=== PATIENT | female | born 1955 | race Two or more races ===

== ENCOUNTER → 2016-12-21 | Outpatient (CLI) | payer BC, OTHER ==
[~2016-12-21] MED LIST: IMIP50TA3 PO; TYLE325T5 PO
[2016-12-21 18:52] LABS: VITAMIN B12 LEVEL 884 PG/ML (247-911)
[2016-12-21 18:53] LABS: FOLATE > 24.0 NG/ML (>5.4)
[2016-12-21 20:02] LABS: FERRITIN 11 NG/ML (8-252); PERCENT SATURATION 17.3 % (13.2-45.0); TOTAL IRON BINDING CAPACITY 417 UG/DL (250-450)
[2016-12-23 11:05] LABS: HEPATITIS B SURFACE ANTIBODY NEGATIVE (POSITIVE)
[2016-12-23 11:30] LABS: HEP C VIRUS AB SCREEN MEDICARE 0.1 INDEX (<0.8)
== END ==
LOC: M LAB 15:19
PROVIDERS: ATTEND Internal Medicine Gastroenterology
DX: R14.0 Abdominal distension (gaseous) (principal)
CPT/HCPCS: 82607; 82728; 82746; 83550; 84207; 84425; 86256; 86705; 86706; 86708; G0472

== ENCOUNTER → 2016-12-26 | Outpatient (REF) | payer BC | LOC: M LAB REF 15:47 | PROVIDERS: ATTEND Internal Medicine Gastroenterology | DX: R14.0 Abdominal distension (gaseous) (principal) ==

== ENCOUNTER 2017-04-18 07:27 | Day surgery (SDC) | payer BC ==
[2017-04-18] MEDS ORDERED: NS 1,000 ML IV (08:15)
[2017-04-18] MEDS ORDERED: LIDOCAINE 2% INJ 100 MG/5 ML SDV (FOR ANES.) As Ordered (08:46)
[2017-04-18] MEDS ORDERED: PROPOFOL 200 MG/20 ML VIAL As Ordered (08:46)
== END 2017-04-18 10:35 | disposition home or self-care (01) ==
LOC: M OPP 07:27
DX: R93.3 Abnormal findings on diagnostic imaging of other parts of digestive tract (principal); R10.13 Epigastric pain; E78.5 Hyperlipidemia, unspecified; R12 Heartburn; D50.9 Iron deficiency anemia, unspecified; F50.00 Anorexia nervosa, unspecified; K21.9 Gastro-esophageal reflux disease without esophagitis; M19.90 Unspecified osteoarthritis, unspecified site; F41.9 Anxiety disorder, unspecified; F32.9 Major depressive disorder, single episode, unspecified; Z78.0 Asymptomatic menopausal state; Z80.3 Family history of malignant neoplasm of breast; Z88.0 Allergy status to penicillin; Z88.3 Allergy status to other anti-infective agents; Z88.2 Allergy status to sulfonamides; Z79.899 Other long term (current) drug therapy
CPT/HCPCS: 43235

== ENCOUNTER → 2018-04-20 | Outpatient (CLI) | payer MEDICARE, OTHER ==
[~2018-04-20] MED LIST changes: +ATOR1TAB19; +IRON65TA PO; +MIRA33504 PO; +PANT40TA3 PO; +VITA-122 PO; +WOMETAB2 PO
--- NOTE | 2018-04-20 13:34 | REP ---
AP, LATERAL RIGHT HIP, TWO VIEWS: HISTORY: Hip pain. COMPARISON: 06/14/2006 There is no acute fracture or dislocation. There is minimal narrowing of the joint space. Calcifications are present lateral to the joint space. This represents ligamentous or tendon calcification. There is an old fracture of the right pubic bone. IMPRESSION:Degenerative change as described above. Electronically Signed by Rudy Le MD 04/20/2018 01:42 P
== END ==
LOC: M RAD 11:37
PROVIDERS: ATTEND Physician Assistant
DX: M16.11 Unilateral primary osteoarthritis, right hip (principal); M25.551 Pain in right hip

== ENCOUNTER 2018-05-19 19:46 | Emergency (ER) | payer MEDICARE, OTHER ==
[~2018-05-19] VITALS: Ht 157.5 cm; Wt 40.0 kg
[2018-05-19] MEDS ORDERED: NS 1,000 ML IV ONE (21:00)
[2018-05-19 21:27] LABS: BASO # 0.1 10^3/uL (0.0-0.2); BASO % 1.3 % (0.0-1.0); EOS # 0.2 10^3/uL (0.0-0.50); EOS % 4.1 % (0.0-3.0); HEMATOCRIT 38.4 % (36.0-47.0); HEMOGLOBIN 12.3 g/dl (12.0-15.5); LYMPH # 1.1 10^3/uL (1.5-4.5); LYMPH % 28.9 % (24.0-44.0); MEAN CORPUSCULAR HEMOGLOBIN 29.5 pg (27.0-33.0); MEAN CORPUSCULAR VOLUME 92.1 fl (80.0-96.0); MONO # 0.4 10^3/uL (0.0-0.8); MONO % 11.3 % (0.0-5.0); NEUTROPHILS # 2.1 10^3/uL (1.8-7.7); NEUTROPHILS % 54.1 % (36.0-66.0); PLATELET COUNT, AUTOMATED 303 10^3/uL (150-450); RED BLOOD COUNT 4.17 10^6/uL (4.00-5.40); WHITE BLOOD COUNT 3.9 10^3/uL (4.0-10.0)
[2018-05-19 22:00] LABS: ALBUMIN 4.2 GM/DL (3.2-5.2); BILIRUBIN,DIRECT 0.1 MG/DL (0.0-0.2); BILIRUBIN,TOTAL 0.3 MG/DL (0.2-1.0); CALCIUM LEVEL 9.1 MG/DL (8.8-10.2); CREATININE FOR GFR 1.22 MG/DL (0.55-1.30); GLOMERULAR FILTRATION RATE 47.1 (>45); POTASSIUM SERUM 3.6 MEQ/L (3.5-5.1); TOTAL PROTEIN 7.6 GM/DL (6.4-8.2)
[2018-05-19] MEDS: GASTROGRAFIN SOLUTION 30ML PO SCH ×2 (22:18→22:35)
[2018-05-19] MEDS ORDERED: ISOVUE-370 76% 100ML VIAL (Q9967) As Ordered ONE (22:54)
--- NOTE | 2018-05-20 00:37 | REPVR ---
EXAM: CT Abdomen and Pelvis With Contrast EXAM DATE/TIME: 05/19/2018 11:20 PM CLINICAL HISTORY: 63 years old, female; Pain; Abdominal pain; Generalized; Additional info: Abdominal pain and bloating, eval for colitis TECHNIQUE: Axial computed tomography images of the abdomen and pelvis with intravenous contrast. All CT scans at this facility use at least one of these dose optimization techniques: automated exposure control; mA and/or kV adjustment per patient size (includes targeted exams where dose is matched to clinical indication); or iterative reconstruction. Coronal and sagittal reformatted images were created and reviewed. CONTRAST: Contrast Material: 84 ml of ISOVUE 370; Contrast Route: IV COMPARISON: None FINDINGS: LUNG BASES: No infiltrate or effusion. VASCULAR: No abdominal aortic aneurysm, dissection, or retroperitoneal hematoma. There is mild atherosclerosis. PERITONEAL : No free air. Trace amount of free fluid noted within the pelvis. GI: No hiatal hernia. The stomach is not sufficiently distended for complete diagnostic evaluation by this exam. If there are gastric symptoms, consider dedicated evaluation. No asymmetric small bowel dilation to suggest obstruction. Secondary to paucity of mesenteric fat, mild mesenteric inflammation throughout cannot be excluded. Gastroenteritis may be a possibility, to be correlated clinically. Portions of the colon in mid rectum are distended with fecal material and gas, to 9.4 cm in diameter at the transverse colon. This could be secondary to constipation and/or ileus. Followup with barium enema or colonoscopy is advised to exclude any possibility of an obstructive lesion. No evidence of acute diverticulitis. No obvious colonic wall thickening seen. No pericolonic inflammatory stranding. The appendix is not identified. HEPATOBILIARY, PANCREAS, SPLEEN: Sagittal hepatic length is 13.2 cm. There is severe heterogeneous hypoenhancement of the liver. This could be artifactual secondary to the arterial phase of imaging, however correlation with LFTs is advised. If there is clinical abnormality, consider nonemergent MRI for further assessment. No calcified gallstones or biliary dilation. No pancreatic inflammation. Spleen not enlarged. Slight heterogeneity of the spleen, likely secondary to the phase of imaging. ADRENALS, KIDNEYS, BLADDER, RETROPERITONEAL: Adrenals within normal limits. No hydronephrosis. Symmetric renal enhancement. 7 mm left renal hypodensity may represent a cyst. Nonobstructing 3 mm left renal calculi. Mildly distended urinary bladder. No bladder wall thickening. PELVIC: No dominant cystic pelvic mass seen. Retroverted uterus. MUSCULOSKELETAL: The bones appear slightly demineralized. Degenerative changes of the spine and within the pelvis are seen. Slight bony deformity of the right pelvis likely related to old fracture. No acute fracture seen. IMPRESSION: Colonic distention may be secondary to constipation and/or ileus. Gastrointestinal findings and recommendations discussed above. Trace amount of free fluid. Severe heterogeneity of hepatic parenchyma. Recommendations discussed above. Other incidental findings discussed above. Electronically signed by: Mitchell Kim On 05/20/2018 00:37:18 AM
[2018-05-20] MEDS ORDERED: MAGNESIUM CITRATE 300 ML BTL PO ONE (00:45)
[2018-05-20 01:00] VITALS: BP 136/84
--- NOTE | 2018-05-20 11:37 | ED PDOC ---
Post-Departure Follow-Up zach lucero faxed formal report of ct abd/p for fu Gigi Plasencia MD May 20, 2018 11:37
== END 2018-05-20 01:02 | disposition home or self-care (01) ==
LOC: M ED 19:46
DX: K59.00 Constipation, unspecified (principal); Z79.899 Other long term (current) drug therapy; Z82.49 Family history of ischemic heart disease and other diseases of the circulatory system; Z82.3 Family history of stroke; Z88.0 Allergy status to penicillin; Z88.2 Allergy status to sulfonamides; Z88.1 Allergy status to other antibiotic agents; Z88.8 Allergy status to other drugs, medicaments and biological substances
CPT/HCPCS: 36415; 74177; 80048; 80076; 81001; 83605; 83690; 85025; 87086; 99284; Q9963; Q9967

== ENCOUNTER 2019-03-06 11:18 | Emergency (ER) | payer MEDICARE ==
[~2019-03-06] VITALS: Ht 157.5 cm; Wt 39.0 kg
--- NOTE | 2019-03-06 12:13 | REP ---
Clinical: Trauma. Fall. Comparison: 01/26/2016 . Findings: Age-related atrophy with periventricular leukomalacia and microvascular ischemic changes are appreciated. The ventricles and sulci are symmetric. Whiteside-white differentiation is maintained. There is no evidence for acute intracranial hemorrhage, mass/mass effect, pathology or infarction. No extra-axial fluid collection. Calvarium is intact. 1.6 cm mucocele noted in the right maxillary sinus. Impression: Age related atrophy and microvascular ischemic changes. No acute intracranial hemorrhage, infarction, or mass/mass effect. Electronically Signed by Dung Hernandez MD 03/06/2019 12:05 P
--- NOTE | 2019-03-06 12:20 | REP ---
Clinical: Trauma. Fall. Technique: Axial noncontrast images from the skull base to the thoracic inlet with coronal and sagittal re-formations. Comparison: 10/03/2013. Findings: Moderate age-related multilevel degenerative disc osteophyte complexes are appreciated. Alignment and lordosis maintained. No acute fracture / compression injury or subluxation. Spinal canal is patent. Posterior elements and spinous processes are intact. Paravertebral soft tissues are within normal limits. Impression: Moderate multilevel degenerative spondylosis. No acute fracture / compression injury or subluxation. Electronically Signed by Dung Hernandez MD 03/06/2019 12:11 P
--- NOTE | 2019-03-06 12:25 | REP ---
Clinical: Trauma. Pain. Technique: AP, lateral, bilateral oblique and coned-down views of the lumbosacral spine. Findings: Age-related osteopenia and mild/moderate multilevel degenerative changes noted. No acute fracture / compression injury or subluxation. Impression: Age-related changes. No acute fracture / compression injury or subluxation. Electronically Signed by Dung Hernandez MD 03/06/2019 12:17 P
--- NOTE | 2019-03-06 12:26 | REP ---
Clinical: Pain. Trauma. Technique: AP and lateral views of the sacrum and coccyx (three views). Findings: Age-related osteopenia and degenerative changes are appreciated and limit evaluation. No obvious acute displaced fracture identified. Impression: No obvious displaced fracture appreciated. Electronically Signed by Dung Hernandez MD 03/06/2019 12:18 P
[2019-03-06 12:56] VITALS: BP 126/59
== END 2019-03-06 12:58 | disposition home or self-care (01) ==
LOC: M ED 11:18
DX: S30.0XXA Contusion of lower back and pelvis, initial encounter (principal); W00.0XXA Fall on same level due to ice and snow, initial encounter; Y92.018 Other place in single-family (private) house as the place of occurrence of the external cause; I67.82 Cerebral ischemia; M25.78 Osteophyte, vertebrae; M47.812 Spondylosis without myelopathy or radiculopathy, cervical region; Z88.2 Allergy status to sulfonamides; Z88.0 Allergy status to penicillin; Z88.1 Allergy status to other antibiotic agents; Z79.899 Other long term (current) drug therapy

== ENCOUNTER 2019-03-13 14:36 | Emergency (ER) | payer MEDICARE ==
[~2019-03-13] VITALS: Ht 157.5 cm; Wt 38.6 kg
[2019-03-13] MEDS ORDERED: NORC1TAB7 PO ×2 (14:42→16:21)
--- NOTE | 2019-03-13 16:21 | REP ---
Clinical: Trauma. Fall. Technique: Axial noncontrast images through the pelvis with coronal and sagittal re-formations. Findings: Sagittal re-formations best demonstrate a subtle acute nondisplaced fracture at the S2-3 level. The foramen appear patent. The surrounding soft tissues are grossly unremarkable. Impression: Subtle nondisplaced fracture at the S2-3 level. Electronically Signed by Dung Hernandez MD 03/13/2019 04:12 P
[2019-03-13 16:28] VITALS: BP 128/59
== END 2019-03-13 16:33 | disposition home or self-care (01) ==
LOC: M ED 14:36
DX: Z76.0 Encounter for issue of repeat prescription (principal); S32.110A Nondisplaced Zone I fracture of sacrum, initial encounter for closed fracture; W01.0XXA Fall on same level from slipping, tripping and stumbling without subsequent striking against object, initial encounter; Y92.9 Unspecified place or not applicable; Z88.2 Allergy status to sulfonamides; Z88.0 Allergy status to penicillin; Z88.1 Allergy status to other antibiotic agents; Z79.02 Long term (current) use of antithrombotics/antiplatelets; Z79.899 Other long term (current) drug therapy

== ENCOUNTER → 2019-04-01 | Outpatient (CLI) | payer MEDICARE ==
[~2019-04-01] MED LIST changes: +NORC1TAB7 PO
== END ==
LOC: M LAB 12:30
PROVIDERS: ATTEND Physician Assistant
DX: R74.0 Nonspecific elevation of levels of transaminase and lactic acid dehydrogenase [LDH] (principal)

== ENCOUNTER → 2020-02-21 | Outpatient (CLI) | payer MEDICARE, MEDICAID ==
[~2020-02-21] MED LIST changes: +E-Z-GAS II EFFERVESCENT PACKET (SODIUM BICARB./CITRIC ACID/SIMETHICONE) As Ordered ONE; +E-Z-HD 98% w/w 340GM SUSP BTL As Ordered ONE; +E-Z-PAQUE 96% w/w SUSP 176GM BTL As Ordered ONE; +PANT40TA29; +PANT40TA29 PO; -PANT40TA3 PO
--- NOTE | 2020-02-21 11:30 | REP ---
INDICATION: DYSPHAGIA. COMPARISON: None TECHNIQUE: This procedure was performed by Angelia Red [facility], under the direct supervision of Dr. Jaime. Images were reviewed with Dr. Jaime prior to dictation. Liquid barium was given in erect position. FINDINGS: A single view PA chest x-ray is submitted as a accounts receivable accountant film. The lungs are hyperinflated, this is consistent with COPD. The oral and pharyngeal stages of deglutition demonstrated laryngeal penetration that progressed into aspiration. Aspirated barium was visualized extending all the way to the maira.. Esophageal transport is prompt and efficient and there is no evidence of esophagitis, stricture, or mucosal ring. There is no evidence of a hiatal hernia. There was no gastroesophageal reflux noted . IMPRESSION: 1.Tracheal aspiration noted to the level of the maira. 2. Hyperinflation of the lungs, consistent with COPD. 0.2 minutes of fluoroscopy time was utilized for this procedure. Some fluoroscopic images are performed with last image hold technology. These images require no additional radiation. <Electronically signed by Angelia Red > 02/21/20 1052 <Electronically signed by Ramin Jaime > 02/21/20 1125
== END ==
LOC: M RAD 08:11
PROVIDERS: ATTEND Nurse Practitioner
DX: R13.10 Dysphagia, unspecified (principal)

== ENCOUNTER → 2020-02-22 | Outpatient (CLI) | payer MEDICARE ==
[~2020-02-22] MED LIST changes: -E-Z-GAS II EFFERVESCENT PACKET (SODIUM BICARB./CITRIC ACID/SIMETHICONE) As Ordered ONE; -E-Z-HD 98% w/w 340GM SUSP BTL As Ordered ONE; -E-Z-PAQUE 96% w/w SUSP 176GM BTL As Ordered ONE
== END ==
LOC: M LABSMTC 11:28
PROVIDERS: ATTEND Anesthesiology
DX: Z01.818 Encounter for other preprocedural examination (principal); Z20.828 Contact with and (suspected) exposure to other viral communicable diseases

== ENCOUNTER 2020-02-27 08:07 | Day surgery (SDC) | payer MEDICARE, MEDICAID ==
[~2020-02-27] VITALS: Ht 157.5 cm; Wt 35.4 kg
[~2020-02-27 08:07] MED LIST changes: +NS 1,000 ML IV ONE
[2020-02-27] MEDS ORDERED: fentaNYL 100 MCG/2 ML INJECTION (J3010) As Ordered ONE (09:11)
[2020-02-27] MEDS ORDERED: LIDOCAINE 2% 100MG/5ML SDV (FOR ANES.) As Ordered ONE (09:11)
[2020-02-27] MEDS ORDERED: propofoL 500 MG/50 ML VIAL As Ordered ONE (09:11)
--- NOTE | 2020-02-27 09:18 | ROOR ---
Patient Name: Cleo Coe Procedure Date: 02/27/2020 9:00 AM Date of : 1955 Age: 64 Room: [facility] Gender: Female Note Status: Finalized Procedure: Upper GI endoscopy Indications: Dysphagia Providers: Hong Lovelace Jr, MD Referring MD: FAITH MINAYA Requesting Provider: Medicines: Propofol per Anesthesia Complications: No immediate complications. Procedure: Pre-Anesthesia Assessment: - Prior to the procedure, a History and Physical was performed, and patient medications and allergies were reviewed. The patient is competent. The risks and benefits of the procedure and the sedation options and risks were discussed with the patient. All questions were answered and informed consent was obtained. Patient identification and proposed procedure were verified by the physician and the nurse in the pre-procedure area and in the procedure room. Mental Status Examination: alert and oriented. Airway Examination: normal oropharyngeal airway and neck mobility. Respiratory Examination: clear to auscultation. CV Examination: normal. ASA Grade Assessment: II - A patient with mild systemic disease. After reviewing the risks and benefits, the patient was deemed in satisfactory condition to undergo the procedure. The anesthesia plan was to use moderate sedation / analgesia (conscious sedation). Immediately prior to administration of medications, the patient was re-assessed for adequacy to receive sedatives. The heart rate, respiratory rate, oxygen saturations, blood pressure, adequacy of pulmonary ventilation, and response to care were monitored throughout the procedure. The physical status of the patient was re-assessed after the procedure. The Endoscope was introduced through the mouth, and advanced to the second part of duodenum. The upper GI endoscopy was accomplished without difficulty. The patient tolerated the procedure well. Findings: The upper third of the esophagus, middle third of the esophagus and lower third of the esophagus were normal. The cardia, gastric fundus, gastric body and pylorus were normal. Localized mild inflammation characterized by congestion (edema), erythema and friability was found in the gastric antrum. Biopsies were taken with a cold forceps for histology. The duodenal bulb, first portion of the duodenum and second portion of the duodenum were normal. Impression: - Normal upper third of esophagus, middle third of esophagus and lower third of esophagus. - Normal cardia, gastric fundus, gastric body and pylorus. - Gastritis. Biopsied. - Normal duodenal bulb, first portion of the duodenum and second portion of the duodenum. Recommendation: - Discharge patient to home (ambulatory). - Return to my office in 2 weeks. Procedure Code(s): --- Professional --- 30626, Esophagogastroduodenoscopy, flexible, transoral; with biopsy, single or multiple Diagnosis Code(s): --- Professional --- K29.70, Gastritis, unspecified, without bleeding R13.10, Dysphagia, unspecified CPT copyright 2019 [employer] [place] [employer]. All rights reserved. The codes documented in this report are preliminary and upon insole presser review may be revised to meet current compliance requirements. Hong Lovelace MD Hong Lovelace Jr, MD 02/27/2020 9:18:31 AM Electronically signed by Hong Lovelace Jr, MD Number of Addenda: 0 Note Initiated On: 02/27/2020 9:00 AM Estimated Blood Loss: Estimated blood loss: none.
[2020-02-27 09:40] VITALS: BP 131/60
== END 2020-02-27 09:47 | disposition home or self-care (01) ==
LOC: M OPP 08:07
PROVIDERS: ATTEND Surgery
DX: R13.10 Dysphagia, unspecified (principal); K29.70 Gastritis, unspecified, without bleeding
CPT/HCPCS: 43239; 88305; J3010

== ENCOUNTER → 2020-03-31 | Outpatient (CLI) | payer MEDICARE, MEDICAID ==
[~2020-03-31] MED LIST changes: -NS 1,000 ML IV ONE
--- NOTE | 2020-03-31 17:02 | REP ---
INDICATION: R13.12 DYSPHAGIA. COMPARISON: None. TECHNIQUE: The procedure was performed by Angelia Red [facility], under the direct supervision of Dr. Whiteside. The procedure was performed with Maddie Krueger from speech pathology present. 5 ml aliquots of thin, pudding, and nectar, consistency barium was administered. FINDINGS: No aspiration or penetration was visualized during the exam. The detailed report of this examination will be provided by speech pathology. IMPRESSION: Unremarkable cookie swallow, a detailed report will be provided by speech pathology. 2.8 minutes of fluoroscopy time was utilized for this procedure. Some fluoroscopic images are performed with last image hold technology. These images require no additional radiation <Electronically signed by Angelia Red > 03/31/20 1534 <Electronically signed by Speedy Whiteside > 03/31/20 [id number]
== END ==
LOC: M ST 11:40
PROVIDERS: ATTEND Otolaryngology
DX: R13.12 Dysphagia, oropharyngeal phase (principal)

== ENCOUNTER 2020-05-08 10:15 | Outpatient (RCR) | payer MEDICARE, MEDICAID | END 2020-05-10 | LOC: M PT 10:15 | PROVIDERS: ATTEND Otolaryngology | DX: R53.1 Weakness (principal); R29.6 Repeated falls; R13.12 Dysphagia, oropharyngeal phase ==

== ENCOUNTER 2020-06-02 10:15 | Outpatient (RCR) | payer MEDICARE, MEDICAID | END 2020-06-10 | LOC: M ST 10:15 | PROVIDERS: ATTEND Otolaryngology | DX: R53.1 Weakness (principal); R29.6 Repeated falls; R13.12 Dysphagia, oropharyngeal phase ==

== ENCOUNTER 2020-06-26 10:58 | Outpatient (RCR) | payer MEDICARE, MEDICAID | END 2020-07-10 | LOC: M ST 10:58 | PROVIDERS: ATTEND Otolaryngology | DX: R13.12 Dysphagia, oropharyngeal phase (principal); R53.1 Weakness; R29.6 Repeated falls ==

== ENCOUNTER 2020-08-06 11:00 | Outpatient (RCR) | payer MEDICARE, MEDICAID | END 2020-08-10 | LOC: M ST 11:00 | PROVIDERS: ATTEND Otolaryngology | DX: R13.12 Dysphagia, oropharyngeal phase (principal); R53.1 Weakness; R29.6 Repeated falls ==

== ENCOUNTER 2020-09-25 10:11 | Emergency (ER) | payer MEDICARE, MEDICAID ==
[~2020-09-25] VITALS: Ht 157.5 cm; Wt 32.3 kg
--- NOTE | 2020-09-25 12:13 | REP ---
INDICATION: trauma. COMPARISON: None. TECHNIQUE: Three views of the right shoulder are provided. FINDINGS: The right glenohumeral and acromioclavicular joints are normally aligned. There is diffuse osteopenia and chondrocalcinosis is noted incidentally as a degenerative phenomena. No fracture or subluxation is seen. The visualized right hemithorax is unremarkable. IMPRESSION: Diffuse osteopenia. Chondrocalcinosis. No traumatic abnormality noted <Electronically signed by Ramin Jaiem > 09/25/20 [id number]
--- NOTE | 2020-09-25 12:43 | REPVR ---
PROCEDURE INFORMATION: Exam: CT Head Without Contrast Exam date and time: 09/25/2020 11:57 AM Age: 65 years old Clinical indication: Injury or trauma; Fall; Blunt trauma (contusions or hematomas); Additional info: Trauma, right parietal pain/trauma TECHNIQUE: Imaging protocol: Computed tomography of the head without contrast. Radiation optimization: All CT scans at this facility use at least one of these dose optimization techniques: automated exposure control; mA and/or kV adjustment per patient size (includes targeted exams where dose is matched to clinical indication); or iterative reconstruction. COMPARISON: CT Head without contrast 03/06/2019 11:54 AM FINDINGS: Brain: The brain demonstrates diffuse volume loss. There is white matter hypodensity most consistent with chronic small vessel ischemic change. No visible evolving territorial infarct. No hemorrhage. Cerebral ventricles: The ventricles are enlarged in keeping with volume loss. Paranasal sinuses: Visualized sinuses are unremarkable. No fluid levels. Mastoid air cells: Visualized mastoid air cells are well aerated. Bones/joints: Unremarkable. No acute fracture. Soft tissues: Unremarkable. IMPRESSION: No acute intracranial abnormality seen. Electronically signed by: Alejandrina Avila On 09/25/2020 12:42:39 PM
[2020-09-25 13:22] VITALS: BP 112/61
== END 2020-09-25 13:22 | disposition home or self-care (01) ==
LOC: M ED 10:11
DX: S09.90XA Unspecified injury of head, initial encounter (principal); S43.401A Unspecified sprain of right shoulder joint, initial encounter; W01.10XA Fall on same level from slipping, tripping and stumbling with subsequent striking against unspecified object, initial encounter; Y92.019 Unspecified place in single-family (private) house as the place of occurrence of the external cause; Y93.9 Activity, unspecified; Y99.8 Other external cause status; M85.811 Other specified disorders of bone density and structure, right shoulder; M11.211 Other chondrocalcinosis, right shoulder; Z88.0 Allergy status to penicillin; Z88.1 Allergy status to other antibiotic agents; Z88.2 Allergy status to sulfonamides; Z79.899 Other long term (current) drug therapy

== ENCOUNTER 2020-11-17 10:45 | Emergency (ER) | payer MEDICARE, MEDICAID ==
[~2020-11-17] VITALS: Ht 157.5 cm; Wt 31.4 kg
--- NOTE | 2020-11-17 11:19 | REP ---
INDICATION: FALL. COMPARISON: Comparison head CT study September 25, 2020. TECHNIQUE: Helical scanning is acquired. 5 mm axial images were reformatted. Coronal MPR images were generated. FINDINGS: Preliminary digital screen printing cloth spreader radiograph demonstrates soft tissue swelling in the left parietal region. Bone window settings confirm the presence of a small scalp hematoma in the left parietal region. No skull fracture is seen. There are some mild mucosal thickening changes in the ethmoid air cells bilaterally. Visualized paranasal sinuses are otherwise clear. On brain soft tissue window settings, there is generalized volume loss. Small vessel atherosclerotic changes are noted. There is no evidence of intracranial hemorrhage. Physiologic calcification is noted in the basal ganglia. There is no evidence of infarct, extra-axial fluid collection, mass, or midline shift. No significant change from the study done September 25, 2020. IMPRESSION: Generalized volume loss and small vessel changes. No intracranial injury. Left parietal scalp swelling. No skull fracture. <Electronically signed by Ramin Jaime > 11/17/20 [id number]
--- NOTE | 2020-11-17 11:23 | REP ---
INDICATION: FALL. COMPARISON: 03/06/2019. TECHNIQUE: CT cervical spine performed in the axial plane, with sagittal and coronal reconstruction images performed. FINDINGS: There is no evidence of acute fracture or dislocation. There is again slight retrolisthesis of C5 on C6 unchanged. There is mild anterior and posterior osteophytic ridging at C 4-5, C5-6 and C6-7 with mild disc space narrowing and subchondral sclerosis at these levels. There is a small stable Schmorl's node at the superior endplate of C7. No abnormal density is seen in the spinal canal. Uncovertebral and facet spurring appears to cause mild to moderate foraminal narrowing on the right at C4-5, moderate narrowing bilaterally at C5-6 and C6-7. IMPRESSION: No evidence of acute fracture or dislocation.Degenerative changes as above. <Electronically signed by Speedy Whiteside > 11/17/20 [id number]
[2020-11-17 11:43] LABS: BASO % 0.4 % (0.0-1.0); EOS # 0.1 10^3/uL (0.0-0.5); EOS % 0.7 % (0.0-3.0); HEMATOCRIT 41.9 % (36.0-47.0); HEMOGLOBIN 13.4 g/dl (12.0-15.5); LYMPH # 0.8 10^3/uL (1.5-5.0); LYMPH % 9.6 % (24.0-44.0); MEAN CORPUSCULAR HEMOGLOBIN 29.8 pg (27.0-33.0); MEAN CORPUSCULAR VOLUME 93.1 fl (80.0-96.0); MONO # 0.6 10^3/uL (0.0-0.8); NEUTROPHILS # 6.5 10^3/uL (1.5-8.5); NEUTROPHILS % 81.7 % (36.0-66.0); PLATELET COUNT, AUTOMATED 310 10^3/uL (150-450)
[2020-11-17 12:26] LABS: ALBUMIN 3.7 GM/DL (3.2-5.2); ALT/SGPT 149 U/L (12-78); BILIRUBIN,TOTAL 0.3 MG/DL (0.2-1.0); BLOOD UREA NITROGEN 15 MG/DL (7-18); CALCIUM LEVEL 9.4 MG/DL (8.8-10.2); CARBON DIOXIDE LEVEL 36 MEQ/L (21-32); CHLORIDE LEVEL 103 MEQ/L (98-107); CREATININE FOR GFR 0.72 MG/DL (0.55-1.30); GLOMERULAR FILTRATION RATE > 60.0 (>45); GLUCOSE, FASTING 102 MG/DL (70-100); POTASSIUM SERUM 4.2 MEQ/L (3.5-5.1); SODIUM LEVEL 141 MEQ/L (136-145); TOTAL PROTEIN 6.8 GM/DL (6.4-8.2)
[2020-11-17 13:10] VITALS: BP 133/79
--- NOTE | 2020-11-17 17:57 | ECGEPIP ---
[facility] [place] - ED Test Date: 2020-11-17 Pat Name: REGINALDO HERNANDEZ Department: Room: - Gender: Female Construction Services Technician: MARKUS : 1955 Requested By: XENIA Vaughn Order Number: [id number] Reading MD: Ashleigh Woods Measurements Intervals [place] Rate: 81 P: 86 [place]: 156 QRS: 4 QRSD: 88 T: 87 QT: 382 QTc: 443 Interpretive Statements Normal sinus rhythm Possible Anterolateral infarct , age undetermined NSTTW abnormalities similar 08/25/14 Electronically Signed on 11-17-2020 17:57:03 EDT by Ashleigh Woods
[2020-11-18] MEDS ORDERED: MECL1TAB31 PO (20:47)
== END 2020-11-17 13:15 | disposition home or self-care (01) ==
LOC: M ED 10:45 → EDBD 10:45 → M ED 13:15
DX: S09.90XA Unspecified injury of head, initial encounter (principal); W01.0XXA Fall on same level from slipping, tripping and stumbling without subsequent striking against object, initial encounter; R26.81 Unsteadiness on feet; R53.1 Weakness; R94.5 Abnormal results of liver function studies; Z88.1 Allergy status to other antibiotic agents; Z88.2 Allergy status to sulfonamides; Z88.8 Allergy status to other drugs, medicaments and biological substances

== ENCOUNTER 2020-11-18 13:53 | Emergency (ER) | payer MEDICARE, MEDICAID ==
[~2020-11-18] VITALS: Ht 157.5 cm; Wt 31.4 kg
[2020-11-18 13:54] VITALS: BP 136/81
[2020-11-18] MEDS ORDERED: MECL1TAB31 PO (20:47)
== END 2020-11-18 21:13 | disposition left against medical advice (07) ==
LOC: M ED 13:53
DX: R42 Dizziness and giddiness (principal); R63.0 Anorexia; Z53.9 Procedure and treatment not carried out, unspecified reason

== ENCOUNTER 2021-01-07 10:26 | Inpatient (IN) | payer MEDICARE, MEDICAID ==
[~2021-01-07] VITALS: Ht 157.5 cm; Wt 28.8 kg
[~2021-01-07 10:26] MED LIST changes: +MECL1TAB31 PO
[2021-01-07] MEDS ORDERED: ENSULIQ51 (10:42)
[2021-01-07] MEDS ORDERED: ATOR1TAB21 PO (10:42)
--- OUTSIDE RECORDS SUMMARY | 2021-01-07 11:22 | CCD | Continuity of Care Document ---
Author Author Cleo MELENDEZ 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 Adrianne Melendez RPA Onset: 09/09/2009 Insomnia Jeffrey Melendez RPA Onset: 03/18/2013 Generalized anxiety disorder Jeffrey Melendez RPA Onset: 0 11/14/2013 Moderate recurrent major depression Jeffrey Melendez RPA O nset: 03/31/2015 Constipation Jeffrey Melendez RPA Onset: 12/12/2019 Articulatory defect Jeffrey Melendez RPA Onset: 11/10/2020 Oropharyngeal dysphagia Jeffrey Melendez RPA Onset: 2020 Social History Type Date Description Comments Sex Unknown Tobacco Use Start: Unknown Never Smoked Cigarettes ETOH Use Occasionally consumes beer Recreational Drug Use Never Used Drugs Tobacco Use Start: Unknown Patient has never smoked Allergies, Adverse Reactions, Alerts Active Allergies Criticality Reaction | Severity Comments Date Bactrim DS Unable to assess criticality gi upset 06/13/2008 Cipro Unable to assess criticality 06/05/2019 Macrobid Unable to assess criticality Dizziness 05/04/2020 Medications Active Medications SIG Qnty Indications Ordering Provide r Date Atorvastatin Calcium 20mg Tablets 1 by mouth every day 30tabs Luke Pacheco D.O., FAAFP Guaifenesin 200mg Tablets 1 po bid 60tabs Luke Pacheco D.O., FAAFP 04/30/2020 Famotidine 40mg Tablets Take One Tablet By Mouth Every Night AT Bedtime 30tabs Roderick Luna, [facility] 01/28/2020 Ensure Active High Protein Liquid 1 can by mouth every day dx: f50 auth. # [id number] 30units Luke Pacheco D.O., FAAFP 01/28/2020 Linzess 145mcg Capsules Take One Capsule By Mouth Every Day 30caps Luke Pacheco D.O., [facility] 12/12/2019 Imipramine HCL 50mg Tablets Take Two Tablets By Mouth AT Bedtime , Maximum Daily Dose = 2 Tablets 60tabs Luke Pacheco D.O., [facility] 08/07/2018 Pantoprazole Sodium 40mg Tablets D R 1 by mouth every day Unknown History Medications Ensure High Protein Liquid Drink One Can By Mouth Every Day 7110units Luke Pacheco D.O., [facility] 06/17/2020 - 10/23/2020 Immunizations Description No Information Available Vital Signs Date Vital Result Comment 11/10/2020 10:32am BP Systolic 116 mmHg BP Diastolic 80 mmHg Body Temperature 97.2 F Heart Rate 78 /min Respiratory Rate 16 /min Height 62 inches 5'2" Weight 68.00 lb [place] Body Weight 110 lb BMI (Body Mass Index) 12.4 kg/m2 10/13/2020 9:50am BP Systolic 114 mmHg BP Diastolic 78 mmHg Body Temperature 97.0 F Heart Rate 88 /min Respiratory Rate 16 /min Height 62 inches 5'2" Weight 69.00 lb [place] Body Weight 110 lb BMI (Body Mass Index) 12.6 kg/m2 O2 % BldC Oximetry 86 % Results Test Acquired Date Facility Test Result H/L Range Note CMP 11/10/2020 [facility]house Glu 108 mg/dL 70 - 110 BUN 18 mg/dL 8 - 23 Creat 0.8 mg/dL 0.5 - 1.0 BUN/Creatinine Ratio 22.2 CALC Na 140 mmol/L 136 - 145 K 3.6 mmol/L 3.5 - 5.1 CL 97.5 mmol/L Low 98.0 - 107.0 Co2 27.7 mmol/L 22.0 - 29.0 CA 10.3 mg/dL High 8.6 - 10.2 TP 7.3 g/dL 6.6 - 8.7 Alb 4.7 g/dL 3.4 - 4.8 A/G Ratio 1.7 CALC Globulin 2.7 CALC Alp 101.8 U/L 35 - 129 Alt (SGPT) 40 U/L 0 - 41 Ast (Sgot) 66 U/L High 0 - 40 Tbili 0.36 mg/dL 0.0 - 1.2 Osmolality-Calculated 281.5 CALC Anion Gap 18 mmol/L eGFR 88 # Calc 1 eGFR Non-Afr. Burkinan 76 # Calc 2 CBC 08/27/2020 [facility]/Inhouse WBC 4.7 10E3/uL 4.1 - 10.9 3 RBC 4.08 10E6/uL Low 4.20 - 6.30 HGB 12.1 g/dL 12.0 - 18.0 HCT 37.9 % 37.0 - 51.0 MCV 92.9 fL 80.0 - 97.0 MCH 29.7 pg 26.0 - 32.0 MCHC 31.9 g/dL 31.0 - 36.0 PLT 377 10E3/uL 140 - 440 RDW-CV 12.6 % 11.5 - 14.5 Lym% 19.9 % 10.0 - 58.5 Neut% 69.4 % 37.0 - 92.0 MXD% 10.7 % 0.1 - 24.0 Lym# 0.9 10E3/uL 0.6 - 4.1 Neut# 3.3 % 2.0 - 7.8 MXD# 0.5 10E3/uL 0.0 - 1.8 MPV 9.4 fL 9.0 - 13.0 CMP 08/27/2020 [facility]Inhouse Glu 111 mg/dL High 70 - 110 BUN 18 mg/dL 8 - 23 Creat 0.9 mg/dL 0.5 - 1.0 BUN/Creatinine Ratio 20.9 CALC Na 137 mmol/L 136 - 145 K 4.4 mmol/L 3.5 - 5.1 CL 98.0 mmol/L 98.0 - 107.0 Co2 25.9 mmol/L 22.0 - 29.0 CA 9.9 mg/dL 8.6 - 10.2 TP 6.9 g/dL 6.6 - 8.7 Alb 4.4 g/dL 3.4 - 4.8 A/G Ratio 1.8 CALC Globulin 2.4 CALC Alp 139.6 U/L High 35 - 129 Alt (SGPT) 29 U/L 0 - 41 Ast (Sgot) 50 U/L High 0 - 40 Tbili 0.13 mg/dL 0.0 - 1.2 Osmolality-Calculated 276.4 CALC Anion Gap 18 mmol/L eGFR 77 # Calc 4 eGFR Non-Afr. Burkinan 66 # Calc 5 Lipid Panel 08/27/2020 [facility]Inhouse Chol 303 mg/dL High 0 - 200 Trig 50 mg/dL 40 - 200 HDL 106 mg/dL High 45 - 65 LDL_C 187 Calc High 75 - 129 Cho/HDL Ratio 2.9 CALC Laboratory test finding 08/27/2020 [facility]Inhouse TSH 1.796 ulU/mL 0.60 - 4.8 Urine Culture, Routine 05/14/2020 [facility] [place] Urine Culture, Routine Final report 6, 7 Result 1 See Comment: 8 U/A DIP FPA 05/14/2020 [facility] As[facility] ciates Color Urine YELLOW Yellow Appearance CLEAR Clear Specific Bard 1.030 1.00-1.03 PH Urine 6.0 5.0-8.0 Glucose Urine NEG Negative Bilirubin Urine 1+ High Negative Ketones NEG Negative Blood Urine NEG Negative Protein Urine TRACE Negative Urobilinogen .2 EU/dl 0.2-1.0 Nitrite NEG Negative Leukocytes TRACE Negative 1 CKD-EPI 2 CKD-EPI 3 NORMAL RANGES Age WBC RBC HGB HCT MCV PLT Adult M 4.1-10.9 4.20-6.30 12.0-18.0 37.0-51.0 80-97 140-440 Adult F 4.1-10.9 4.04-5.48 12.0-18.0 37.0-51.0 80-97 140-440 0 -1 Yr 5.0-20.0 3.9-5.9 15-18 MV: 44 MV: 91 MV: 277 2-9 Yr. 6.0-17.0 3.8-5.4 11-13 MV: 37 MV: 78 MV: 300 10 Yrs. 5.0-13.0 3.8-5.4 12-15 MV: 39 MV: 80 MV: 250 NOTE: * FOR ADULT BLACK MALES AND FEMALES, NORMAL WBC IS 2.9-7.7 K/ML * FOR ADULT BLACK MALES AND FEMALES, NORMAL RBC,HGB, AND HCT IS 5% LESS SOURCE FOR DATA: [employer] 1800 OPERATION MANUAL( AUTOMATED BLOOD COUNTS AND DIFF.) APPENDIX B-3 CHRONIC KIDNEY DISEASE STAGING PER NKF: MALE GFR INTERPRETATION: 20-49 YRS: >60 mL/min Normal 50-59 YRS: >56 mL/min Normal 60-69 YRS: >49 mL/min Normal 70-79 YRS: >42 mL/min Normal 80 and above >35 mL/min Normal FEMALE GRF INTERPRETATION: 20-39 YRS: >60 mL/min Normal 40-49 YRS: >58 mL/min Normal 50-59 YRS: >51 mL/min Normal 60-69 YRS: >45 mL/min Normal 70-79 YRS: >39 mL/min Normal 80 and above >32 mL/min NormalCLASSIFICATION CHOLESTEROL FOR ADULTS CHILDREN/ADOLESCENTS* DESIRABLE: <200 MG/DL <170 MG/DL BORDER-LINE HIGH RISK: 200-239 MG/DL 170-199 MG/DL HIGH RISK: >240 MG/DL >200 MG/DL CLASS. FOR PRIMARY LDL CHOL PREVENTION: LDL CHOL-CHILD/ADOLESCENTS* DESIRABLE: <130 MG/DL <110 MG/DL BORDERLINE-HIGH RISK: 130-159 MG/DL 110-129 MG/DL HIGH RISK: >160 MG/DL >130 MG/DL *CHILDREN AND ADOLESCENTS REPRESENTS INDIVIDUALA AGED 2-19 YEARS EXCLUSIVE. 4 CKD-EPI 5 CKD-EPI 6 SRC:URINE 7 Source of Specimen: URINE 8 Source of Specimen: URINE Culture shows less than 10,000 colony forming units of bacteria per milliliter of urine. This colony count is not generally considered to be clinically significant. Procedures Date Code Description Status 11/10/2020 31891 Office/Outpatient Established Mo d MDM 30-39 Min Completed 10/13/2020 06540 Office/Outpatient Established Mo d MDM 30-39 Min Completed 08/27/2020 13318 Office/Outpatient Established Mo d MDM 30-39 Min Completed 05/14/2020 31453 Office/Outpatient Established Lo w MDM 20-29 Min Completed Medical Devices Description No Information Available Encounters Type Date Location Provider Dx Diagnosis Office Visit 11/10/2020 9:45a [facility] Jeffrey Melendez, RP A F50.00 Anorexia nervosa, unspecified R47.89 Other speech disturbances R13.12 Dysphagia, oropharyngeal pha se R60.0 Localized edema Office Visit 10/13/2020 9:30a [facility] Jeffrey Melendez, RP A F50.00 Anorexia nervosa, unspecified R13.12 Dysphagia, oropharyngeal pha se R47.89 Other speech disturbances Office Visit 08/27/2020 10:20a [facility] Jeffrey Melendez, RP A E78.5 Hyperlipidemia, unspecified D52.0 Dietary folate deficiency an emia R13.12 Dysphagia, oropharyngeal pha se F50.00 Anorexia nervosa, unspecifie d Office Visit 05/14/2020 11:30a [facility] Jeffrey Melendez, RP A R35.0 Frequency of micturition N39.0 Urinary tract infection, sit e not specified Assessments Date Code Description Provider 11/10/2020 F50.00 Anorexia nervosa, unspecified Hi Jeffrey dc, RPA 11/10/2020 R47.89 Other speech disturbances Jeffrey Melendez, RPA 11/10/2020 R13.12 Dysphagia, oropharyngeal phase H Jeffrey brock, RPA 11/10/2020 R60.0 Ankle edema Jeffrey Melendez, RPA 10/13/2020 F50.00 Anorexia nervosa, unspecified Hi Jeffrey dc, RPA 10/13/2020 R13.12 Dysphagia, oropharyngeal phase H Jeffrey brock, RPA 10/13/2020 R47.89 Other speech disturbances Jeffrey Melendez, RPA 08/27/2020 E78.5 Hyperlipidemia, unspecified Jeffrey Rosas, RPA 08/27/2020 D52.0 Dietary folate deficiency anemia Jeffrey Melendez, RPA 08/27/2020 R13.12 Dysphagia, oropharyngeal phase H Jeffrey brock, RPA 08/27/2020 F50.00 Anorexia nervosa, unspecified Hi Jeffrey dc, RPA 05/14/2020 R35.0 Frequency of micturition Jeffrey Melendez, RPA 05/14/2020 N39.0 Urinary tract infection, site no t specified Jeffrey Melendez, [facility] Plan of Treatment No Information Available Functional Status Description No Information Available Mental Status Description No Information Available Referrals Refer to Reason for Referral Status Appt Date Anorexia with progressive we akness, muscle loss, dysphagia, and dysphasia. She now weighs 68#. Sent
--- OUTSIDE RECORDS SUMMARY | 2021-01-07 11:22 | CCD | Continuity of Care Document ---
Author Author YuniorCleo cordero [employer] ed Organization Unknown Address Unknown Phone Unavailable Care Team Providers Care Inspector Balance Wheel Motion Name Role Phone Tera Ingram Unavailable Unavailable Unavailable Tera Ingram Unavailable Unavailable Unavailable AnumDaysi zaragoza Unavailable Rianna Brooks Unavailable Bettye Cardenas Unavailable Problems Name Dates Details Anorexia nervosa, u nspecified (F50.00) 08-Dec-2020 Status: Active Medications Name Dates Details Linzess 145 MCG Tera Ingram MD Active Imipramine HCl 50 MG Tera Ingram MD* Start : 14-Dec-2020 Active Famotidine 40 MG Tera Ingram MD* Start : 14-Dec-2020 Active Ensure Active High Protein Tera Ingram MD* Start : 14-Dec-2020 Active Atorvastatin Calcium 20 MG Tera Ingram MD* Start : 14-Dec-2020 Active Allergies and Adverse Reactions Name Dates Details Bactrim DS, Cipro, Macrobid (Allergy) O nset: 14-Dec-2020 Status: Active Results Date Description Value Details No Known Results Plan of Care Name Dates Details Instructions Diet:high protein, ensure kody es; client has 40 year history of anorexia. Ins truction Type: Nutrition education Payers * Medicare - [place] * [facility] [place]
--- OUTSIDE RECORDS SUMMARY | 2021-01-07 11:22 | CCD | Continuity of Care Document ---
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) 14-Dec-2020 Status: Active Hyperlipidemia, uns pecified (E78.5) 14-Dec-2020 Status: Active Vitamin D deficienc y, unspecified (E55.9) 14-Dec-2020 Status: Active 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) 14-Dec-2020 Status: Active Anxiety disorder, u nspecified (F41.9) 14-Dec-2020 Status: Active Depression, unspeci fied (F32.A) 14-Dec-2020 Status: Active Anemia, unspecified (D64.9) 14-Dec-2020 Status: Active Dysphagia, unspecif ied (R13.10) 14-Dec-2020 Status: Active Repeated falls (R29.6) 14-Dec-2020 Status: Active Medications Name Dates Details Linzess 145 MCG Tera Ingram MD Active Imipramine HCl 50 MG Tera Ingram MD* Start : 14-Dec-2020 Active Famotidine 40 MG Tera Ingram MD* Start : 14-Dec-2020 Active Ensure Active High Protein Tera Ingram MD* Start : 04-Oct-2021 Active Atorvastatin Calcium 20 MG Tera Ingram [...] Type: Nutrition education Payers * Medicare - [facility] * [facility]
--- OUTSIDE RECORDS SUMMARY | 2021-01-07 11:22 | CCD | Continuity of Care Document ---
Author Author YuniorCleo cordero [employer] Organization Unknown Address Unknown Phone Unavailable Care Team Providers Care Rehabilitation Clerk Name Role Phone Tera Ingram Unavailable Unavailable [...] education Payers * Medicare - [place] * [facility]
--- OUTSIDE RECORDS SUMMARY | 2021-01-07 11:22 | CCD | Continuity of Care Document ---
Author Author Zay Cleo [employer] Organization Unknown Address Unknown Phone Unavailable Care Team Providers Care Vending Machine Coin Collector Name Role Phone Juan Jose Tera Unavailable Unavailable Unavailable Tera Ingram Unavailable Unavailable [...] Ingram MD Active Imipramine HCl 50 MG Nenita Ingram MD Start : 14-Dec-2020 Active Famotidine 40 MG Tera Ingram MD* Start : 14-Dec-2020 Active Ensure Active High Protein Tera Ingram MD* Start : 14-Dec-2020 Active Atorvastatin Calcium 20 MG Nenita Ingram MD Start : 14-Dec-2020 Active Allergies and Adverse Reactions Name Dates Details Bactrim DS, Cipro, Macrobid (Allergy) O nset: 14-Dec-2020 Status: Active Results Date Description Value Details No Known Results Plan of Care Name Dates Details Instructions Diet:high protein, ensure kody es; client has 40 year history of anorexia. Ins truction Type: Nutrition education Payers * Medicare - [facility] * [facility]
--- OUTSIDE RECORDS SUMMARY | 2021-01-07 11:22 | CCD | Continuity of Care Document ---
Author Author Cleo MELENDEZ [facility] Organization Unknown Address [address] [place] [id number] Phone [phone] Problems Active Problems Provider Date Anorexia nervosa [...] Every Night AT Bedtime 30tabs Roderick Luna, [facility] 01/28/2020 Ensure Active High Protein Liquid 1 can by mouth every day dx: f50 auth. # [id number] 30units Luke Pacheco D.O., [facility] 01/28/2020 Linzess 145mcg Capsules Take One Capsule By Mouth Every Day 30caps Luke Pacheco D.O., [facility] 12/12/2019 Imipramine HCL 50mg Tablets Take Two Tablets By Mouth AT Bedtime , Maximum Daily Dose = 2 Tablets 60tabs Luke Pacheco D.O., [facility] 08/07/2018 Pantoprazole Sodium 40mg Tablets D R 1 by mouth every day Unknown History Medications Ensure High Protein Liquid Drink One Can By Mouth Every Day 7110units Luke Pacheco D.O., [facility] 06/17/2020 - 10/23/2020 Immunizations Description No Information Available Vital Signs Date Vital Result Comment 12/01/2020 1:14pm BP Systolic 118 mmHg BP Diastolic 70 mmHg Body Temperature 97.3 F Heart Rate 109 /min Respiratory Rate 16 /min Height 62 inches 5'2" Weight 66.00 lb [place] Body Weight 110 lb BMI (Body Mass Index) 12.1 kg/m2 11/10/2020 10:32am BP Systolic 116 mmHg BP Diastolic 80 mmHg Body Temperature 97.2 F Heart Rate 78 /min Respiratory Rate 16 /min Height 62 inches 5'2" Weight 68.00 lb [place] Body Weight 110 lb BMI (Body Mass Index) 12.4 kg/m2 Results Test Acquired Date Facility Test Result H/L Range Note Hepatic Function Panel (7) 12/01/2020 [facility] [place] Protein, Total 6.9 g/dL 6.0-8.5 Albumin 4.4 g/dL 3.8-4.8 Bilirubin, Total 0.3 mg/dL 0.0-1.2 Bilirubin, Direct 0.11 mg/dL 0.00-0.40 Alkaline Phosphatase 135 IU/L High 44-121 1 Ast (Sgot) 79 IU/L High 0-40 Alt (SGPT) 75 IU/L High 0-32 Laboratory test finding 12/01/2020 [facility] [place] GGT 28 IU/L 0-60 Antinuclear Antibodies, Ifa Negative 2 Mitochondrial (M2) Antibody <20.0 units 0.0-20.0 3 Ceruloplasmin 27.6 mg/dL 19.0-39.0 Ferritin 114 ng/mL 15-150 Hepatitis Panel, Acute 12/01/2020 [facility] [place] Hep A Ab, IgM Negative Negative HBsAg Screen Negative Negative Hep B Core Ab, IgM Negative Negative Hep C Virus Ab <0.1 s/coratio 0.0-0.9 4 CMP 11/10/2020 [facility]/Inhouse Glu 108 mg/dL 70 [...] Gap 18 mmol/L eGFR 88 # Calc 5 eGFR Non-Afr. English 76 # Calc 6 CBC 08/27/2020 [facility]/Inhouse WBC 4.7 10E3/uL 4.1 - 10.9 7 RBC 4.08 10E6/uL Low 4.20 - 6.30 [...] Gap 18 mmol/L eGFR 77 # Calc 8 eGFR Non-Afr. English 66 # Calc 9 Lipid Panel 08/27/2020 [facility]Inhouse Chol 303 mg/dL High 0 - 200 Trig 50 mg/dL 40 - 200 HDL 106 mg/dL High 45 - 65 LDL_C 187 Calc High 75 - 129 Cho/HDL Ratio 2.9 CALC Laboratory test finding 08/27/2020 [facility]house TSH 1.796 ulU/mL 0.60 - 4.8 1 Please note reference inte rval change 2 Negative <1:80 Borderline 1:80 Positive >1:80 ICAP nomenclature: AC-0 For more information about Hep-2 cell patterns use ANApatterns.org, the official website for the International Consensus on Antinuclear Antibody (CARRIE) Patterns (ICAP). 3 Negative 0.0 - 20.0 Equivocal 20.1 - 24.9 Positive >24.9 Mitochondrial (M2) Antibodies are found in 90-96% of patients with primary biliary cirrhosis. 4 Negative: < 0.8 Indeterminate: 0.8 - 0.9 Positive: > 0.9 The CDC recommends that a positive HCV antibody result be followed up with a HCV Nucleic Acid Amplification test (765237). 5 CKD-EPI 6 CKD-EPI 7 NORMAL RANGES Age WBC RBC HGB HCT [...] HCT IS 5% LESS SOURCE FOR DATA: [employer] 1800 OPERATION MANUAL( AUTOMATED BLOOD COUNTS AND [...] ADOLESCENTS REPRESENTS INDIVIDUALA AGED 2-19 YEARS EXCLUSIVE. 8 CKD-EPI 9 CKD-EPI Procedures Date Code Description Status 12/01/2020 97499 Office/Outpatient Established Mo d MDM 30-39 Min Completed 11/10/2020 28584 Office/Outpatient Established Mo d MDM 30-39 Min Completed 10/13/2020 42404 Office/Outpatient Established Mo d MDM 30-39 Min Completed 08/27/2020 09404 Office/Outpatient Established Mo d MDM 30-39 Min Completed Medical Devices Description No Information Available Encounters Type Date Location Provider Dx Diagnosis Office Visit 12/01/2020 1:00p [place] [facility] Jeffrey Melendez, RP A R74.01 Elevation of levels of liver transaminase levels F50.00 Anorexia nervosa, unspecifie d R47.89 Other speech disturbances Office Visit 11/10/2020 9:45a [place] [facility] Jeffrey Melendez, RP A F50.00 Anorexia nervosa, unspecified R47.89 Other speech disturbances R13.12 Dysphagia, oropharyngeal pha se R60.0 Localized edema Office Visit 10/13/2020 9:30a [place] [facility] Jeffrey Melendez, RP A F50.00 Anorexia nervosa, unspecified R13.12 Dysphagia, oropharyngeal pha se R47.89 Other speech disturbances Office Visit 08/27/2020 10:20a [place] [facility] Jeffrey Melendez, RP A E78.5 Hyperlipidemia, unspecified D52.0 Dietary folate deficiency an emia R13.12 Dysphagia, oropharyngeal pha se F50.00 Anorexia nervosa, unspecifie d Assessments Date Code Description Provider 12/01/2020 R74.01 Elevation of levels of liver tra nsaminase levels Jeffrey Melendez, RPA 12/01/2020 F50.00 Anorexia nervosa, unspecified Hi Jeffrey dc, RPA 12/01/2020 R47.89 Other speech disturbances Jeffrey Melendez, RPA 11/10/2020 F50.00 Anorexia nervosa, unspecified Hi Jeffrey dc, RPA 11/10/2020 R47.89 Other speech disturbances Jeffrey Melendez, RPA 11/10/2020 R13.12 Dysphagia, oropharyngeal phase H Jeffrey brock, RPA 11/10/2020 R60.0 Ankle edema Jeffrey Melendez, RPA 10/13/2020 F50.00 Anorexia nervosa, unspecified Hi Jeffrey dc, RPA 10/13/2020 R13.12 Dysphagia, oropharyngeal phase H Jeffrey brock, RPA 10/13/2020 R47.89 Other speech disturbances Jeffrey Melendez, RPA 08/27/2020 E78.5 Hyperlipidemia, unspecified Raudelnm Jeffrey damian, RPA 08/27/2020 D52.0 Dietary folate deficiency anemia Jeffrey Melendez, RPA 08/27/2020 R13.12 Dysphagia, oropharyngeal phase H Jeffrey brock, RPA 08/27/2020 F50.00 Anorexia nervosa, unspecified Hi Jeffrey dc, [facility] Plan of Treatment No Information Available Functional Status Description No Information Available Mental Status Description No Information Available Referrals Refer to Reason for Referral [facility]66# with secondary dysarthria, dysphagia, weakness. [phone] Created Anorexia with progressive we akness, muscle loss, dysphagia, and dysphasia. She now weighs 68#. Sent
--- OUTSIDE RECORDS SUMMARY | 2021-01-07 11:22 | CCD | Continuity of Care Document ---
Author Author YuniorCleo cordero [employer] ed Organization Unknown Address Unknown Phone Unavailable Care Team Providers Care Prevention Coordinator Name Role Phone Tera Ingram Unavailable Unavailable Unavailable Tera Ingram Unavailable Unavailable Unavailable AnumDaysi zaragoza Unavailable Rianna Brooks Unavailable Bettye Cardenas Unavailable Problems Name Dates Details Anorexia nervosa, u nspecified (F50.00) 08-Dec-2020 Status: Active Medications Name Dates Details Linzess 145 MCG Tera Ingarm MD Active Imipramine HCl 50 MG Tera [...] Payers * Medicare - [place] * [facility]
--- OUTSIDE RECORDS SUMMARY | 2021-01-07 11:22 | CCD | Continuity of Care Document ---
Author Author Cleo MELENDEZ [facility] Organization Unknown Address [address] [place] [address] Phone [phone] Problems Active Problems Provider Date Anorexia nervosa [...] Every Night AT Bedtime 30tabs Roderick Luna, [facility] 01/28/2020 Ensure Active High Protein Liquid 1 can by mouth every day dx: f50 auth. # [id number] 30units Luke Pacheco D.O., [facility] 01/28/2020 Linzess 145mcg Capsules Take One Capsule By Mouth Every Day 30caps Luke Pacheco D.O., [facility] 12/12/2019 Imipramine HCL 50mg Tablets Take Two Tablets By Mouth AT Bedtime , Maximum Daily Dose = 2 Tablets 60tabs Luke Pacheco D.O., [facility] 08/07/2018 Pantoprazole Sodium 40mg Tablets D R 1 by mouth every day Unknown History Medications Ensure High Protein Liquid Drink One Can By Mouth Every Day 7110units Luke Pacheco D.O., [facility] 06/17/2020 - 10/23/2020 Immunizations Description No Information Available Vital Signs Date Vital Result Comment 12/01/2020 1:14pm BP Systolic 118 mmHg BP Diastolic 70 mmHg Body Temperature 97.3 F Heart Rate 109 /min Respiratory Rate 16 /min Height 62 inches 5'2" Weight 66.00 lb [place] Body Weight 110 lb BMI (Body Mass Index) 12.1 kg/m2 11/10/2020 10:32am BP Systolic 116 mmHg BP Diastolic 80 mmHg Body Temperature 97.2 F Heart Rate 78 /min Respiratory Rate 16 /min Height 62 inches 5'2" Weight 68.00 lb [place] Body Weight 110 lb BMI (Body Mass [...] eGFR 88 # Calc 5 eGFR Non-Afr. Cook Islander 76 # Calc 6 CBC 08/27/2020 FPA/Inhouse [...] eGFR 77 # Calc 8 eGFR Non-Afr. [place] Islander 66 # Calc 9 Lipid Panel 08/27/2020 [...] with a HCV Nucleic Acid Amplification test ([id number]). 5 CKD-EPI 6 CKD-EPI 7 NORMAL RANGES [...] HCT IS 5% LESS SOURCE FOR DATA: [employer] DYN 1800 OPERATION MANUAL( AUTOMATED BLOOD COUNTS [...] CKD-EPI Procedures Date Code Description Status 12/01/2020 78993 Office/Outpatient Established Mo d MDM 30-39 Min Completed 11/10/2020 19565 Office/Outpatient Established Mo d MDM 30-39 Min Completed 10/13/2020 36145 Office/Outpatient Established Mo d MDM 30-39 Min Completed 08/27/2020 17854 Office/Outpatient Established Mo d MDM 30-39 Min Completed Medical Devices Description No Information Available Encounters Type Date Location Provider Dx Diagnosis Office Visit 12/01/2020 1:00p [place] [facility] Jeffrey Melendez, RP A R74.01 Elevation of levels of liver transaminase levels F50.00 Anorexia nervosa, unspecifie d R47.89 Other speech disturbances Office Visit 11/10/2020 9:45a [place] [facility] Jeffrey Melendez, RP A F50.00 Anorexia nervosa, unspecified R47.89 Other speech disturbances R13.12 Dysphagia, oropharyngeal pha se R60.0 Localized edema Office Visit 10/13/2020 9:30a [place] [facility] Jeffrey Melendez, RP A F50.00 Anorexia nervosa, unspecified R13.12 Dysphagia, oropharyngeal pha se R47.89 Other speech disturbances Office Visit 08/27/2020 10:20a [place] [facility] Jeffrey Melendez, RP A E78.5 Hyperlipidemia, [...] nervosa, unspecified Hi Jeffrey dc, [facility] Plan of Treatment No Information Available Functional Status Description No Information Available Mental Status Description No Information Available Referrals Refer to Reason for Referral Status Appt [facility]--66# with secondary dysarthria, dysphagia, weakness. [phone] Created Anorexia with progressive we akness, muscle loss, dysphagia, and dysphasia. She now weighs 68#. Sent
--- OUTSIDE RECORDS SUMMARY | 2021-01-07 11:22 | CCD | Continuity of Care Document ---
Author Author Cleo MELENDEZ [facility] Organization Unknown Address [address] [place] [address] Phone [phone] Problems Active Problems Provider Date Anorexia nervosa [...] Every Night AT Bedtime 30tabs Roderick Luna, [facility] 01/28/2020 Ensure Active High Protein Liquid 1 can by mouth every day dx: f50 auth. # [id number] 30units Luke Pacheco D.O., [facility]FP 01/28/2020 Linzess 145mcg Capsules Take One Capsule By Mouth Every Day 30caps Luke Pacheco D.O., [facility] 12/12/2019 Imipramine HCL 50mg Tablets Take Two Tablets By Mouth AT Bedtime , Maximum Daily Dose = 2 Tablets 60tabs Luke Pacheco D.O., [facility] 08/07/2018 Pantoprazole Sodium 40mg Tablets D R 1 by mouth every day Unknown History Medications Ensure High Protein Liquid Drink One Can By Mouth Every Day 7110units Luke Pacheco D.O., [facility] 06/17/2020 - 10/23/2020 Immunizations Description No Information Available Vital Signs Date Vital Result Comment 12/01/2020 1:14pm BP Systolic 118 mmHg BP Diastolic 70 mmHg Body Temperature 97.3 F Heart Rate 109 /min Respiratory Rate 16 /min Height 62 inches 5'2" Weight 66.00 lb [place] Body Weight 110 lb BMI (Body Mass Index) 12.1 kg/m2 11/10/2020 10:32am BP Systolic 116 mmHg BP Diastolic 80 mmHg Body Temperature 97.2 F Heart Rate 78 /min Respiratory Rate 16 /min Height 62 inches 5'2" Weight 68.00 lb [place] Body Weight 110 lb BMI (Body Mass [...] eGFR 88 # Calc 1 eGFR Non-Afr. Albanian 76 # Calc 2 CBC 08/27/2020 FPA/Inhouse [...] eGFR 77 # Calc 4 eGFR Non-Afr. Albanian 66 # Calc 5 Lipid Panel 08/27/2020 FPA/Inhouse Chol 303 mg/dL High 0 - 200 Trig 50 mg/dL 40 - 200 HDL 106 mg/dL High 45 - 65 LDL_C 187 Calc High 75 - 129 Cho/HDL Ratio 2.9 CALC Laboratory test finding 08/27/2020 FPA/Inhouse TSH 1.796 ulU/mL 0.60 - 4.8 1 CKD-EPI 2 CKD-EPI 3 NORMAL RANGES [...] HCT IS 5% LESS SOURCE FOR DATA: [employer] DYN 1800 OPERATION MANUAL( AUTOMATED BLOOD COUNTS [...] 2-19 YEARS EXCLUSIVE. 4 CKD-EPI 5 CKD-EPI Procedures Date Code Description Status 11/10/2020 47450 Office/Outpatient Established Mo d MDM 30-39 Min Completed 10/13/2020 63008 Office/Outpatient Established Mo d MDM 30-39 Min Completed 08/27/2020 50058 Office/Outpatient Established Mo d MDM 30-39 Min Completed Medical Devices Description No Information Available Encounters Type Date Location Provider Dx Diagnosis Office Visit 11/10/2020 9:45a [place] [facility] Jeffrey Melendez, JUAN ANTONIO A F50.00 Anorexia nervosa, unspecified R47.89 Other speech disturbances R13.12 Dysphagia, oropharyngeal pha se R60.0 Localized edema Office Visit 10/13/2020 9:30a [place] [facility] Jeffrey Melendez, RP A F50.00 Anorexia nervosa, unspecified R13.12 Dysphagia, oropharyngeal pha se R47.89 Other speech disturbances Office Visit 08/27/2020 10:20a [place] [facility] Jeffrey Melendez, RP A E78.5 Hyperlipidemia, [...] RPA 11/10/2020 F50.00 Anorexia nervosa, unspecified Hi nmJeffrey damian, RPA 11/10/2020 R47.89 Other speech disturbances Jeffrey Melendez, RPA 11/10/2020 R13.12 Dysphagia, oropharyngeal phase H Jeffrey brock, RPA 11/10/2020 R60.0 Ankle edema Jeffrey Melendez, RPA 10/13/2020 F50.00 Anorexia nervosa, unspecified Hi Jeffrey dc, RPA 10/13/2020 R13.12 Dysphagia, oropharyngeal phase H Jeffrey brock, RPA 10/13/2020 R47.89 Other speech disturbances Jeffrey Melendez, RPA 08/27/2020 E78.5 Hyperlipidemia, unspecified Hinm Jeffrey damian, RPA 08/27/2020 D52.0 Dietary folate deficiency anemia Jeffrey Melendez, RPA 08/27/2020 R13.12 Dysphagia, oropharyngeal phase H Jeffrey brock, RPA 08/27/2020 F50.00 Anorexia nervosa, unspecified Hi Jeffrey dc, RPA Plan of Treatment No Information Available Functional Status Description No Information Available Mental Status Description No Information Available Referrals Refer to Reason for Referral Status Appt Date Anorexia with progressive we akness, muscle loss, dysphagia, and dysphasia. She now weighs 68#. Sent
--- OUTSIDE RECORDS SUMMARY | 2021-01-07 11:22 | CCD | Continuity of Care Document ---
Author Author Cleo MELENDEZ [facility] Organization Unknown Address [address] [place] [address] Phone [phone] Problems Active Problems Provider Date Anorexia nervosa [...] Guaifenesin 200mg Tablets 1 po bid 60tabs Lkue Pacheco D.O., FAAFP 04/30/2020 Famotidine 40mg Tablets Take One Tablet By Mouth Every Night AT Bedtime 30tabs [facility]ick Luna, [facility] 01/28/2020 Ensure Active High Protein Liquid 1 can by mouth every day dx: f50 auth. # [id number] 30units Luke Pacheco D.O., FAAFP 01/28/2020 Linzess 145mcg Capsules Take One Capsule By Mouth Every Day 30caps [facility] D.O., [facility] 12/12/2019 Imipramine HCL 50mg Tablets Take Two Tablets By Mouth AT Bedtime , Maximum Daily Dose = 2 Tablets 60tabs Luke [facility]co D.O., [facility] 08/07/2018 Pantoprazole Sodium 40mg Tablets D R 1 by mouth every day Unknown History Medications Ensure High Protein Liquid Drink One Can By Mouth Every Day 7110units [facility] D.O., [facility] 06/17/2020 - 10/23/2020 Immunizations Description No Information Available Vital Signs Date Vital Result Comment 11/10/2020 10:32am BP Systolic 116 mmHg BP Diastolic 80 mmHg Body Temperature 97.2 F Heart Rate 78 /min Respiratory Rate 16 /min Height 62 inches 5'2" Weight 68.00 lb [place] Body Weight 110 lb BMI (Body Mass Index) 12.4 kg/m2 10/13/2020 9:50am BP Systolic 114 mmHg BP Diastolic 78 mmHg Body Temperature 97.0 F Heart Rate 88 /min Respiratory Rate 16 /min Height 62 inches 5'2" Weight 69.00 lb [place] Body Weight 110 lb BMI (Body Mass [...] eGFR 88 # Calc 1 eGFR Non-Afr. Tunisian 76 # Calc 2 CBC 08/27/2020 FPA/Inhouse [...] eGFR 77 # Calc 4 eGFR Non-Afr. [place]isian 66 # Calc 5 Lipid Panel 08/27/2020 [...] Urine YELLOW Yellow Appearance CLEAR Clear Specific [place] 1.030 1.00-1.03 PH Urine 6.0 5.0-8.0 Glucose [...] HCT IS 5% LESS SOURCE FOR DATA: [employer] 1800 OPERATION MANUAL( AUTOMATED BLOOD COUNTS AND [...] significant. Procedures Date Code Description Status 11/10/2020 76258 Office/Outpatient Established Mo d MDM 30-39 Min Completed 10/13/2020 74032 Office/Outpatient Established Mo d MDM 30-39 Min Completed 08/27/2020 09107 Office/Outpatient Established Mo d MDM 30-39 Min Completed 05/14/2020 25972 Office/Outpatient Established Lo w MDM 20-29 Min Completed Medical Devices Description No Information Available Encounters Type Date Location Provider Dx Diagnosis Office Visit 11/10/2020 9:45a [place] [facility] Jeffrey Melendez, RP A F50.00 Anorexia nervosa, unspecified R47.89 Other speech disturbances R13.12 Dysphagia, oropharyngeal pha se R60.0 Localized edema Office Visit 10/13/2020 9:30a [place] [facility] Jeffrey Melendez, RP A F50.00 Anorexia nervosa, unspecified R13.12 Dysphagia, oropharyngeal pha se R47.89 Other speech disturbances Office Visit 08/27/2020 10:20a [place] [facility] Jeffrey Melendez, RP A E78.5 Hyperlipidemia, unspecified D52.0 Dietary folate deficiency an emia R13.12 Dysphagia, oropharyngeal pha se F50.00 Anorexia nervosa, unspecifie d Office Visit 05/14/2020 11:30a [place] [facility] Jeffrey Melendez, RP A R35.0 Frequency [...] 08/27/2020 D52.0 Dietary folate deficiency anemia Jeffrey eMlendez, RPA 08/27/2020 R13.12 Dysphagia, oropharyngeal phase H Jeffrey brock, RPA 08/27/2020 F50.00 Anorexia nervosa, unspecified Hi Jeffrey dc, RPA 05/14/2020 R35.0 Frequency of micturition Jeffrey Melendez, RPA 05/14/2020 N39.0 Urinary tract infection, site no t specified Jeffrey Melendez, [facility] Plan of Treatment No Information Available Functional Status Description No Information Available Mental Status Description No Information Available Referrals Refer to Reason for Referral Status Appt Date Anorexia with progressive we akness, muscle loss, dysphagia, and dysphasia. She now weighs 68#. Sent
--- OUTSIDE RECORDS SUMMARY | 2021-01-07 11:22 | CCD | Continuity of Care Document ---
Author Author YuniorCleo cordero [facility] Organization Unknown Address Unknown Phone Unavailable Care Team Providers Care Sap Bpc Architect Name Role Phone Tera Ingram Unavailable Unavailable [...] education Payers * Medicare - [place] * [facility]
--- OUTSIDE RECORDS SUMMARY | 2021-01-07 11:22 | CCD | Continuity of Care Document ---
Author Author Zay Cleo PROTEGOat ed Organization Unknown Address Unknown Phone Unavailable Care Team Providers Care Property Utilization Officer Name Role Phone Juan Jose Tera Unavailable [...] Type: Nutrition education Payers * Medicare - [facility] * [facility] Care
--- OUTSIDE RECORDS SUMMARY | 2021-01-07 11:22 | CCD | Continuity of Care Document ---
Author Author YuniorCleo cordero [facility] Organization Unknown Address Unknown Phone Unavailable Care Team Providers Care Share Dairy Farmer Name Role Phone Tera Ingram Unavailable Unavailable [...]
--- OUTSIDE RECORDS SUMMARY | 2021-01-07 11:22 | CCD | Continuity of Care Document ---
Author Author Cleo MELENDEZ [facility] Organization Unknown Address [address] [place] [address] Phone [phone] Problems Active Problems Provider Date Anorexia nervosa [...] Every Night AT Bedtime 30tabs Roderick Luna, [facility] 01/28/2020 Ensure Active High Protein Liquid 1 can by mouth every day dx: f50 auth. # [id number] 30units Luke Pacheco D.O., FAAFP 01/28/2020 Linzess 145mcg Capsules Take One Capsule By Mouth Every Day 30caps Luke [facility]acheco D.O., [facility] 12/12/2019 Imipramine HCL 50mg Tablets Take Two Tablets By Mouth AT Bedtime , Maximum Daily Dose = 2 Tablets 60tabs Luke Pacheco D.O., [facility] 08/07/2018 Pantoprazole Sodium 40mg Tablets D R 1 by mouth every day Unknown History Medications Ensure High Protein Liquid Drink One Can By Mouth Every Day 7110units Luke Pacheco D.O., [facility] 06/17/2020 - 10/23/2020 Immunizations Description No Information Available Vital Signs Date Vital Result Comment 11/10/2020 10:32am BP Systolic 116 mmHg BP Diastolic 80 mmHg Body Temperature 97.2 F Heart Rate 78 /min Respiratory Rate 16 /min Height 62 inches 5'2" Weight 68.00 lb [place] Body Weight 110 lb BMI (Body Mass Index) 12.4 kg/m2 10/13/2020 9:50am BP Systolic 114 mmHg BP Diastolic 78 mmHg Body Temperature 97.0 F Heart Rate 88 /min Respiratory Rate 16 /min Height 62 inches 5'2" Weight 69.00 lb [place] Body Weight 110 lb BMI (Body Mass Index) 12.6 kg/m2 O2 % BldC Oximetry 86 % Results Test Acquired Date Facility Test Result H/L Range Note CBC 08/27/2020 FPA/Inhouse WBC 4.7 10E3/uL 4.1 - 10.9 1 RBC 4.08 10E6/uL Low 4.20 - 6.30 [...] Gap 18 mmol/L eGFR 77 # Calc 2 eGFR Non-Afr. Kyrgyz 66 # Calc 3 Lipid Panel 08/27/2020 FPA/Inhouse Chol 303 mg/dL High 0 - 200 Trig 50 mg/dL 40 - 200 HDL 106 mg/dL High 45 - 65 LDL_C 187 Calc High 75 - 129 Cho/HDL Ratio 2.9 CALC Laboratory test finding 08/27/2020 [facility]PA/Inhouse TSH 1.796 ulU/mL 0.60 - 4.8 Urine Culture, Routine 05/14/2020 [facility] [place] Urine Culture, Routine Final report 4, 5 Result 1 See Comment: 6 U/A DIP FPA 05/14/2020 [facility] Asso ciates Color Urine YELLOW Yellow Appearance CLEAR Clear Specific [place] 1.030 1.00-1.03 PH Urine 6.0 5.0-8.0 Glucose Urine NEG Negative Bilirubin Urine 1+ High Negative Ketones NEG Negative Blood Urine NEG Negative Protein Urine TRACE Negative Urobilinogen .2 EU/dl 0.2-1.0 Nitrite NEG Negative Leukocytes TRACE Negative 1 NORMAL RANGES Age WBC RBC HGB HCT [...] HCT IS 5% LESS SOURCE FOR DATA: [employer] 1800 OPERATION MANUAL( AUTOMATED BLOOD COUNTS AND [...] ADOLESCENTS REPRESENTS INDIVIDUALA AGED 2-19 YEARS EXCLUSIVE. 2 CKD-EPI 3 CKD-EPI 4 SRC:URINE 5 Source of Specimen: URINE 6 Source of Specimen: URINE Culture shows less than 10,000 colony forming units of bacteria per milliliter of urine. This colony count is not generally considered to be clinically significant. Procedures Date Code Description Status 11/10/2020 52627 Office/Outpatient Established Mo d MDM 30-39 Min Completed 10/13/2020 29806 Office/Outpatient Established Mo d MDM 30-39 Min Completed 08/27/2020 66161 Office/Outpatient Established Mo d MDM 30-39 Min Completed 05/14/2020 74758 Office/Outpatient Established Lo w MDM 20-29 Min Completed Medical Devices Description No Information Available Encounters Type Date Location Provider Dx Diagnosis Office Visit 11/10/2020 9:45a [place] [facility] Jeffrey Melendez, RP A F50.00 Anorexia nervosa, unspecified R47.89 Other speech disturbances R13.12 Dysphagia, oropharyngeal pha se R60.0 Localized edema Office Visit 10/13/2020 9:30a [place] [facility] Jeffrey Melendez, RP A F50.00 Anorexia nervosa, unspecified R13.12 Dysphagia, oropharyngeal pha se R47.89 Other speech disturbances Office Visit 08/27/2020 10:20a [place] [facility] Jeffrey Melendez, RP A E78.5 Hyperlipidemia, unspecified D52.0 Dietary folate deficiency an emia R13.12 Dysphagia, oropharyngeal pha se F50.00 Anorexia nervosa, unspecifie d Office Visit 05/14/2020 11:30a [place] [facility] Jeffrey Melendez, RP A R35.0 Frequency [...] infection, site no t specified Jeffrey Melendez, RPA Plan of Treatment No Information Available Functional Status Description No Information Available Mental Status Description No Information Available Referrals Refer to Reason for Referral Status Appt Date Anorexia with progressive we akness, muscle loss, dysphagia, and dysphasia. She now weighs 68#. Created
--- OUTSIDE RECORDS SUMMARY | 2021-01-07 11:23 | CCD | Continuity of Care Document ---
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 Adrianne Melendez RPA Onset: 09/09/2009 Insomnia Jeffrey Melendez RPA Onset: 03/18/2013 Generalized anxiety disorder Jeffrey Melendez RPA Onset: 0 11/14/2013 Moderate recurrent major depression Jeffrey Melendez RPA O nset: 03/31/2015 Constipation Jeffrey Melendez RPA Onset: 12/12/2019 Oropharyngeal dysphagia Jeffrey Melendez RPA Onset: 2020 Social History Type Date Description Comments Sex Unknown Tobacco Use Start: Unknown Never Smoked Cigarettes ETOH Use Occasionally consumes beer Recreational Drug Use Never Used Drugs Tobacco Use Start: Unknown Patient has never smoked Allergies, Adverse Reactions, Alerts Active Allergies Reaction Severity Comments Date Bactrim DS gi upset 06/13/2008 Cipro 06/05/2019 Macrobid Dizziness 05/04/2020 Medications Active Medications SIG Qnty Indications Ordering Provide r Date Atorvastatin Calcium 20mg Tablets 1 by mouth every day 30tabs Luke Pacheco D.O., FAAFP Ensure High Protein Liquid Drink One Can By Mouth Every Day 7110units Luke Pacheco D.O., FAAFP 06/17/2020 Guaifenesin 200mg Tablets 1 po bid 60tabs Luke Pacheco D.O., [facility] 04/30/2020 Famotidine 40mg Tablets Take One Tablet By Mouth Every Night AT Bedtime 30tabs Roderick Luna, [facility] 01/28/2020 Ensure Active High Protein Liquid 1 can by mouth every day dx: f50 auth. # [id number] 30units [facility] D.O., [facility] 01/28/2020 Linzess 145mcg Capsules take one capsule by mouth every day 30caps Luke Pacheco D.O., [facility] 12/12/2019 Imipramine HCL 50mg Tablets Take Two Tablets By Mouth AT Bedtime , Maximum Daily Dose = 2 Tablets 60tabs Luke Pacheco D.O., [facility] 08/07/2018 Pantoprazole Sodium 40mg Tablets D R 1 by mouth every day Unknown History Medications Mupirocin 2% Ointment top twice a day x 10 days labia 45gms Luke Pacheco D.O., [facility] - 05/10/2020 Macrobid 100mg Capsules one tab by mouth twice a day times 10 days 14caps Luke Pacheco D.O., [facility] 04/30/2020 - 05/04/2020 Immunizations Description No Information Available Vital Signs Date Vital Result Comment 10/13/2020 9:50am BP Systolic 114 mmHg BP Diastolic 78 mmHg Body Temperature 97.0 F Heart Rate 88 /min Respiratory Rate 16 /min Height 62 inches 5'2" Weight 69.00 lb [place] Body Weight 110 lb BMI (Body Mass Index) 12.6 kg/m2 O2 % BldC Oximetry 86 % 08/27/2020 10:33am BP Systolic 104 mmHg BP Diastolic 72 mmHg Body Temperature 97.2 F Heart Rate 68 /min Respiratory Rate 16 /min Height 62 inches 5'2" Weight 72.00 lb [place] Body Weight 110 lb BMI (Body Mass Index) 13.2 kg/m2 O2 % BldC Oximetry 97 % Results Test Acquired Date Facility Test [...] eGFR 77 # Calc 2 eGFR Non-Afr. Sammarinese 66 # Calc 3 Lipid Panel 08/27/2020 [...] Result 1 See Comment: 6 U/A DIP A 05/14/2020 [facility] Asso ciates Color Urine YELLOW Yellow Appearance CLEAR Clear Specific [place] 1.030 1.00-1.03 PH Urine 6.0 5.0-8.0 Glucose Urine NEG Negative Bilirubin Urine 1+ High Negative Ketones NEG Negative Blood Urine NEG Negative Protein Urine TRACE Negative Urobilinogen .2 EU/dl 0.2-1.0 Nitrite NEG Negative Leukocytes TRACE Negative Urine Culture, Routine 04/30/2020 [facility] [place] Urine Culture, Routine Final report 7 Result 1 See Comment: 8 Aerobic Bacterial Culture 04/30/2020 [facility] [place] Aerobic Bacterial Culture Final report 9 Result 1 Routine stephanie 10 U/A DIP A 04/30/2020 [facility] Asso ciates Color Urine YELLOW Yellow Appearance CLEAR Clear Specific [place] 1.030 1.00-1.03 PH Urine 6.0 5.0-8.0 Glucose Urine NEG Negative Bilirubin Urine 1+ High Negative Ketones NEG Negative Blood Urine NEG Negative Protein Urine 1+ High Negative Urobilinogen .2 EU/dl 0.2-1.0 Nitrite NEG Negative Leukocytes 2+ High Negative 1 NORMAL RANGES Age WBC RBC [...] HCT IS 5% LESS SOURCE FOR DATA: [employer] 1800 OPERATION MANUAL( AUTOMATED BLOOD COUNTS AND [...] not generally considered to be clinically significant. 7 Source of Specimen: URINE 8 Source of Specimen: URINE Mixed urogenital stephanie 10,000-25,000 colony forming units per m L 9 Source of Specimen: URINE 10 Source of Specimen: URINE Procedures Date Code Description Status 08/27/2020 50816 Office/Outpatient Established Mo d MDM 30-39 Min Completed 05/14/2020 43166 Office/Outpatient Established Lo w MDM 20-29 Min Completed 04/30/2020 10299 Office/Outpatient Established Lo w MDM 20-29 Min Completed Medical Devices Description No Information Available Encounters Type Date Location Provider Dx Diagnosis Office Visit 08/27/2020 10:20a [place] [facility] Jeffrey Melendez, RP A E78.5 Hyperlipidemia, unspecified D52.0 Dietary folate deficiency an emia R13.12 Dysphagia, oropharyngeal pha se F50.00 Anorexia nervosa, unspecifie d Office Visit 05/14/2020 11:30a [place] [facility] Jeffrey Melendez, RP A R35.0 Frequency of micturition N39.0 Urinary tract infection, sit e not specified Office Visit 04/30/2020 3:45p [place] [facility] Jeffrey Melendez, RP A L08.9 Local infection of the skin and subcutaneous tissue, unsp N39.0 Urinary tract infection, sit e not specified Assessments Date Code Description Provider 10/13/2020 F50.00 Anorexia nervosa, unspecified Jeffrey Mandel, RPA 10/13/2020 R13.12 Dysphagia, oropharyngeal phase H Jeffrey rbock, RPA 10/13/2020 R47.89 Other speech disturbances Jeffrey Melendez, RPA 08/27/2020 E78.5 Hyperlipidemia, unspecified Jeffrey Rosas, RPA 08/27/2020 D52.0 Dietary folate deficiency anemia Jeffrey Melendez, RPA 08/27/2020 R13.12 Dysphagia, oropharyngeal phase H Jeffrey brock, RPA 08/27/2020 F50.00 Anorexia nervosa, unspecified Jeffrey Mandel, RPA 05/14/2020 R35.0 Frequency of micturition Jeffrey Melendez, RPA 05/14/2020 N39.0 Urinary tract infection, site no t specified Jeffrey Melendez, RPA 04/30/2020 L08.9 Local infection of t he skin and subcutaneous tissue, unspecified Jeffrey Melendez, [place] 04/30/2020 N39.0 Urinary tract infection, site no t specified Jeffrey Melendez, RPA Plan of Treatment No Information Available Functional Status Description No Information Available Mental Status Description No Information Available Referrals Description No Information Available
--- OUTSIDE RECORDS SUMMARY | 2021-01-07 11:23 | CCD | Continuity of Care Document ---
Author Author Cleo MELENDEZ RPA Organization Unknown Address [address] [place] [id number] Phone [phone] Problems Active Problems Provider Date Anorexia nervosa [...] 1 po bid 60tabs Luke Pacheco D.O., [facility] 04/30/2020 Famotidine 40mg Tablets Take One Tablet By Mouth Every Night AT Bedtime 30tabs Roderick Luna, [facility] 01/28/2020 Ensure Active High Protein Liquid 1 can by mouth every day dx: f50 auth. # [id number] 30units [facility] 01/28/2020 Linzess 145mcg Capsules take one capsule by mouth every day 30caps Luke Pacheco D.O., [facility] 12/12/2019 Imipramine HCL 50mg Tablets Take Two Tablets By Mouth AT Bedtime , Maximum Daily Dose = 2 Tablets 60tabs Luke Pacheco D.O., [facility] 08/07/2018 Pantoprazole Sodium 40mg Tablets D R 1 by mouth every day Unknown History Medications Mupirocin 2% Ointment top twice a day x 10 days labia 45gms Luke Pacheco D.O., [facility] - 05/10/2020 Macrobid 100mg Capsules one tab by mouth twice a day times 10 days 14caps Luke Pacheco D.O., [facility] 04/30/2020 - 05/04/2020 Immunizations Description No Information Available Vital Signs Date Vital Result Comment 10/13/2020 9:50am BP Systolic 114 mmHg BP Diastolic 78 mmHg Body Temperature 97.0 F Heart Rate 88 /min Respiratory Rate 16 /min Height 62 inches 5'2" Weight 69.00 lb [place] Body Weight 110 lb BMI (Body Mass Index) 12.6 kg/m2 O2 % BldC Oximetry 86 % 08/27/2020 10:33am BP Systolic 104 mmHg BP Diastolic 72 mmHg Body Temperature 97.2 F Heart Rate 68 /min Respiratory Rate 16 /min Height 62 inches 5'2" Weight 72.00 lb [place] Body Weight 110 lb BMI (Body Mass [...] eGFR 77 # Calc 2 eGFR Non-Afr. [place] 66 # Calc 3 Lipid Panel 08/27/2020 [...] See Comment: 6 U/A DIP A 05/14/2020 [facility] Asso ciates Color Urine YELLOW Yellow Appearance CLEAR Clear Specific Joice 1.030 1.00-1.03 PH Urine 6.0 5.0-8.0 Glucose [...] Routine stephanie 10 U/A DIP A 04/30/2020 [facility] Asso ciates Color Urine YELLOW Yellow Appearance CLEAR Clear Specific Joice 1.030 1.00-1.03 PH Urine 6.0 5.0-8.0 Glucose [...] HCT IS 5% LESS SOURCE FOR DATA: [employer] 1800 OPERATION MANUAL( AUTOMATED BLOOD COUNTS AND [...] Specimen: URINE Procedures Date Code Description Status 10/13/2020 58810 Office/Outpatient Established Mo d MDM 30-39 Min Completed 08/27/2020 80139 Office/Outpatient Established Mo d MDM 30-39 Min Completed 05/14/2020 43771 Office/Outpatient Established Lo w MDM 20-29 Min Completed 04/30/2020 99322 Office/Outpatient Established Lo w MDM 20-29 Min Completed Medical Devices Description No Information Available Encounters Type Date Location Provider Dx Diagnosis Office Visit 10/13/2020 9:30a [facility] [place] [facility] Jeffrey Melendez, RP A F50.00 Anorexia nervosa, unspecified R13.12 Dysphagia, oropharyngeal pha se R47.89 Other speech disturbances Office Visit 08/27/2020 10:20a [facility] [place] [facility] Jeffrey Melendez, RP A E78.5 Hyperlipidemia, unspecified D52.0 Dietary folate deficiency an emia R13.12 Dysphagia, oropharyngeal pha se F50.00 Anorexia nervosa, unspecifie d Office Visit 05/14/2020 11:30a [facility] [place] [facility] Jeffrey Melendez, RP A R35.0 Frequency of micturition N39.0 Urinary tract infection, sit e not specified Office Visit 04/30/2020 3:45p [facility] [place] [facility] Jeffrey Melendez, RP A L08.9 Local [...] skin and subcutaneous tissue, unspecified Jeffrey Melendez, RPA 04/30/2020 N39.0 Urinary tract infection, site no t specified Jeffrey Melendez, [facility] Plan of Treatment No Information Available Functional Status Description No Information Available Mental Status Description No Information Available Referrals Description No Information Available
--- OUTSIDE RECORDS SUMMARY | 2021-01-07 11:23 | CCD | Continuity of Care Document ---
Author Author Cleo MELENDEZ [facility] Organization Unknown Address [address] [place] [id number] Phone [phone] Problems Active Problems Provider Date Anorexia nervosa [...] mouth every day dx: f50 auth. # [id number] 30units Luke Pacheco D.O., [facility] 01/28/2020 Linzess 145mcg Capsules Take One Capsule By Mouth Every Day 30caps [facility] 12/12/2019 Imipramine HCL 50mg Tablets Take Two Tablets By Mouth AT Bedtime , Maximum Daily Dose = 2 Tablets 60tabs [facility] 08/07/2018 Pantoprazole Sodium 40mg Tablets D R 1 by mouth every day Unknown History Medications Ensure High Protein Liquid Drink One Can By Mouth Every Day 7110units [facility] 06/17/2020 - 10/23/2020 Immunizations Description No Information Available Vital Signs Date Vital Result Comment 11/10/2020 10:32am BP Systolic 116 mmHg BP Diastolic 80 mmHg Body Temperature 97.2 F Heart Rate 78 /min Respiratory Rate 16 /min Height 62 inches 5'2" Weight 68.00 lb [place] Body Weight 110 lb BMI (Body Mass Index) 12.4 kg/m2 10/13/2020 9:50am BP Systolic 114 mmHg BP Diastolic 78 mmHg Body Temperature 97.0 F Heart Rate 88 /min Respiratory Rate 16 /min Height 62 inches 5'2" Weight 69.00 lb [place] Body Weight 110 lb BMI (Body Mass [...] eGFR 77 # Calc 2 eGFR Non-Afr. [place] 66 # Calc 3 Lipid Panel 08/27/2020 [...] See Comment: 6 U/A DIP FPA 05/14/2020 [facility] Asso ciates Color Urine YELLOW Yellow Appearance CLEAR Clear Specific Lillian 1.030 1.00-1.03 PH Urine 6.0 5.0-8.0 Glucose [...] HCT IS 5% LESS SOURCE FOR DATA: [employer] 1800 OPERATION MANUAL( AUTOMATED BLOOD COUNTS AND [...] significant. Procedures Date Code Description Status 11/10/2020 40735 Office/Outpatient Established Mo d MDM 30-39 Min Completed 10/13/2020 50599 Office/Outpatient Established Mo d MDM 30-39 Min Completed 08/27/2020 91362 Office/Outpatient Established Mo d MDM 30-39 Min Completed 05/14/2020 20563 Office/Outpatient Established Lo w MDM 20-29 Min Completed Medical Devices Description No Information Available Encounters Type Date Location Provider Dx Diagnosis Office Visit 11/10/2020 9:45a [place] [facility] Jeffrey Melendez, RP A F50.00 Anorexia nervosa, unspecified R47.89 Other speech disturbances R13.12 Dysphagia, oropharyngeal pha se R60.0 Localized edema Office Visit 10/13/2020 9:30a [place] [facility] Jeffrey Melendez, RP A F50.00 Anorexia nervosa, unspecified R13.12 Dysphagia, oropharyngeal pha se R47.89 Other speech disturbances Office Visit 08/27/2020 10:20a [place] [facility] Jeffrey Melendez, RP A E78.5 Hyperlipidemia, unspecified D52.0 Dietary folate deficiency an emia R13.12 Dysphagia, oropharyngeal pha se F50.00 Anorexia nervosa, unspecifie d Office Visit 05/14/2020 11:30a [place] Jeffrey Melendez, RP A R35.0 Frequency [...]
--- OUTSIDE RECORDS SUMMARY | 2021-01-07 11:24 | CCD ---
Author Author [facility] Organization [facility] Address Unknown Phone Unavailable Care Team Providers Care Painter Set Name Role Phone Maring, Antonio PA Unavailable Unavailable Maring, Antonio PA Unavailable Unavailable Maring, Antonio PA Unavailable Unavailable Maring, Antonio PA Unavailable Unavailable Maring, Antonio PA Unavailable Unavailable Maring, Antonio PA Unavailable Unavailable Maring, Antonio PA Unavailable Unavailable Maring, Antonio PA Unavailable Unavailable Maring, Antonio PA Unavailable Unavailable Maring, Antonio PA Unavailable Unavailable Maring, Antonio PA Unavailable Unavailable Maring, Antonio PA Unavailable Unavailable Maring, Antonio PA Unavailable Unavailable Maring, Antonio PA Unavailable Unavailable Maring, Antonio PA Unavailable Unavailable Maring, Antonio PA Unavailable Unavailable Lashay, Wendy Gerald COMBER SETTER Unavailable Unavailable [place], Wendy Gerald COMBER SETTER Unavailable Unavailable Lashay, Wendy Gerald COMBER SETTER Unavailable Unavailable [place], Wendy Gerald COMBER SETTER Unavailable Unavailable [place], Wendy Gerald COMBER SETTER Unavailable Unavailable Lashay, Wendy Gerald COMBER SETTER Unavailable Unavailable Lashay, Wendy Gerald COMBER SETTER Unavailable Unavailable [place], Wenyd Gerald COMBER SETTER Unavailable Unavailable Lashay, Wendy Gerald COMBER SETTER Unavailable Unavailable Lashay, Wendy Gerald COMBER SETTER Unavailable Unavailable Lashay, Wendy Gerald COMBER SETTER Unavailable Unavailable [place], Wendy Gerald COMBER SETTER Unavailable Unavailable Lashay, Wendy Gerald COMBER SETTER Unavailable Unavailable Lashay, Wendy Gerald COMBER SETTER Unavailable Unavailable SatartiaDat MD Unavailable Unavailable SatartiaDat MD Unavailable Unavailable SatartiaDat MD Unavailable Unavailable Satartia Dat MD Unavailable Unavailable SatartiaDat MD Unavailable Unavailable SatartiaDat MD Unavailable Unavailable SatartiaDat MD Unavailable Unavailable SatartiaDat MD Unavailable Unavailable SatartiaDat MD Unavailable Unavailable SatartiaDat MD Unavailable Unavailable SatartiaDat MD Unavailable Unavailable Satartia Dat MD Unavailable Unavailable SatartiaDat MD Unavailable Unavailable [place]artia, Dat MD Unavailable Unavailable Satartia, Dta MD Unavailable Unavailable SatartiaDat MD Unavailable Unavailable SatartiaDat MD Unavailable Unavailable SatartiaDat MD Unavailable Unavailable [place]artia, Dat MD Unavailable Unavailable Satartia, Dat MD Unavailable Unavailable [place]ia, Dat MD Unavailable Unavailable [place]artia, Dat MD Unavailable Unavailable [place]artia, Dat MD Unavailable Unavailable Satartia, Dat MD Unavailable Unavailable [place]artia, Dat MD Unavailable Unavailable Satartia, Dat MD Unavailable Unavailable Satartia, Dat MD Unavailable Unavailable [place]artia, Dat MD Unavailable Unavailable [place]artia, Dat MD Unavailable Unavailable [place]artia, Dat MD Unavailable Unavailable LEACH, G EDWARD RPA Unavailable Unavailable LEACH, G EDWARD RPA Unavailable Unavailable LEACH, G EDWARD RPA Unavailable Unavailable LEACH, G EDWARD RPA Unavailable Unavailable LEACH, G EDWARD RPA Unavailable Unavailable LEACH, G EDWARD RPA Unavailable Unavailable LEACH, G EDWARD RPA Unavailable Unavailable LEACH, G EDWARD RPA Unavailable Unavailable LEACH, G EDWARD RPA Unavailable Unavailable LEACH, G EDWARD RPA Unavailable Unavailable LEACH, G EDWARD RPA Unavailable Unavailable LEACH, G EDWARD RPA Unavailable Unavailable LEACH, G EDWARD RPA Unavailable Unavailable LEACH, G EDWARD RPA Unavailable Unavailable LEACH, G EDWARD RPA Unavailable Unavailable LEACH, G EDWARD RPA Unavailable Unavailable LEACH, G EDWARD RPA Unavailable Unavailable LEACH, G EDWARD RPA Unavailable Unavailable LEACH, G EDWARD RPA Unavailable Unavailable LEACH, G EDWARD RPA Unavailable Unavailable LEACH, G EDWARD RPA Unavailable Unavailable LEACH, G EDWARD RPA Unavailable Unavailable LEACH, G EDWARD RPA Unavailable Unavailable LEACH, G EDWARD RPA Unavailable Unavailable LEACH, G EDWARD RPA Unavailable Unavailable LEACH, G EDWARD RPA Unavailable Unavailable LEACH, G EDWARD RPA Unavailable Unavailable LEACH, G EDWARD RPA Unavailable Unavailable LEACH, G EDWARD RPA Unavailable Unavailable LEACH, G EDWARD RPA Unavailable Unavailable LEACH, G EDWARD RPA Unavailable Unavailable LEACH, G EDWARD RPA Unavailable Unavailable LEACH, G EDWARD RPA Unavailable Unavailable LEACH, G EDWARD RPA Unavailable Unavailable LEACH, G EDWARD RPA Unavailable Unavailable Ricardo, J Antwan Unavailable Unavailable Ricardo, J Antwan Unavailable Unavailable Ricardo, J Antwan Unavailable Unavailable Ricardo, J Antwan Unavailable Unavailable Ricardo, J Antwan Unavailable Unavailable Ricardo, J Antwan Unavailable Unavailable Ricardo, J Antwan Unavailable Unavailable Ricardo, J Antwan Unavailable Unavailable Al, D Jeffrey PA Unavailable Unavailable Al, D Jeffrey PA Unavailable Unavailable Al, D Jeffrey PA Unavailable Unavailable Al, D Jeffrey PA Unavailable Unavailable Al, D Jeffrey PA Unavailable Unavailable Al, D Jeffrey PA Unavailable Unavailable Al, D Jeffrey PA Unavailable Unavailable Al, D Jeffrey PA Unavailable Unavailable Al, D Jeffrey PA Unavailable Unavailable Al, D Jeffrey PA Unavailable Unavailable Al, D Jeffrey PA Unavailable Unavailable Al, D Jeffrey PA Unavailable Unavailable Al, D Jeffrey PA Unavailable Unavailable Al, D Jeffrey PA Unavailable Unavailable Al, D Jeffrey PA Unavailable Unavailable Al, D Jeffrey PA Unavailable Unavailable Al, D Jeffrey PA Unavailable Unavailable Al, D Jeffrey PA Unavailable Unavailable Al, D Jeffrey PA Unavailable Unavailable Al, D Jeffrey PA Unavailable Unavailable Al, D Jeffrey PA Unavailable Unavailable Al, D Jeffrey PA Unavailable Unavailable Al, D Jeffrey PA Unavailable Unavailable Al, D Jeffrey PA Unavailable Unavailable Al, D Jeffrey PA Unavailable Unavailable Al, D Jeffrey PA Unavailable Unavailable Al, D Jeffrey PA Unavailable Unavailable Al, D Jeffrey PA Unavailable Unavailable Al, D Jeffrey PA Unavailable Unavailable Al, D Jeffrey PA Unavailable Unavailable Al, D Jeffrey PA Unavailable Unavailable Al, D Jeffrey PA Unavailable Unavailable Al, D Jeffrey PA Unavailable Unavailable Al, D Jeffrey PA Unavailable Unavailable Al, D Jeffrey PA Unavailable Unavailable Al, D Jeffrey PA Unavailable Unavailable Al, D Jeffrey PA Unavailable Unavailable Al, D Jeffrey PA Unavailable Unavailable Al, D Jeffrey PA Unavailable Unavailable Al, D Jeffrey PA Unavailable Unavailable Al, D Jeffrey PA Unavailable Unavailable Al, D Jeffrey PA Unavailable Unavailable Al, D Jeffrey PA Unavailable Unavailable Al, D Jeffrey PA Unavailable Unavailable Al, D Jeffrey PA Unavailable Unavailable Al, D Jeffrey PA Unavailable Unavailable Al, D Jeffrey PA Unavailable Unavailable Al, D Jeffrey PA Unavailable Unavailable Al, D Jeffrey PA Unavailable Unavailable Al, D Jeffrey PA Unavailable Unavailable Al, D Jeffrey PA Unavailable Unavailable Al, D Jeffrey PA Unavailable Unavailable Al, D Jeffrey PA Unavailable Unavailable Al, D Jeffrey PA Unavailable Unavailable Al, D Jeffrey PA Unavailable Unavailable Al, D Jeffrey PA Unavailable Unavailable Al, D Jeffrey PA Unavailable Unavailable Al, D Jeffrey PA Unavailable Unavailable Al, D Jeffrey PA Unavailable Unavailable Al, D Jeffrey PA Unavailable Unavailable Al, D Jeffrey PA Unavailable Unavailable Al, D Jeffrey PA Unavailable Unavailable Al, D Jeffrey PA Unavailable Unavailable Al, D Jeffrey PA Unavailable Unavailable Al, D Jeffrey PA Unavailable Unavailable Al, D Jeffrey PA Unavailable Unavailable Al, D Jeffrey PA Unavailable Unavailable IrinaOmeron Unavailable [phone] IrinaOmeron Unavailable [phone] IrinaOmeron Unavailable [phone] IrinaOmeron Unavailable [phone] IrinaOmeron Unavailable [phone] Olvin Arevalo Unavailable [phone] Celso Lovelace JR, MD Unavailable Unavailable Celso Lovelace JR, MD Unavailable Unavailable Celso Lovelace JR, MD Unavailable Unavailable Celso Lovelace JR, MD Unavailable Unavailable Celso Lovelace JR, MD Unavailable Unavailable Celso Lovelace JR, MD Unavailable Unavailable Celso Lovelace JR, MD Unavailable Unavailable Celso Lovelace JR, MD Unavailable Unavailable Celso Lovelace JR, MD Unavailable Unavailable Celso Lovelace JR, MD Unavailable Unavailable Celso Lovelace JR, MD Unavailable Unavailable Celso Lovelace JR, MD Unavailable Unavailable Celso Lovelace JR, MD Unavailable Unavailable Celso Lovelace JR, MD Unavailable Unavailable Celso Lovelace JR, MD Unavailable Unavailable RaduCelso arreguin JR, MD Unavailable Unavailable RaduCelso arreguin JR, MD Unavailable Unavailable RaduCelso arreguin JR, MD Unavailable Unavailable RaduCelso arreguin JR, MD Unavailable Unavailable RaduCelso arreguin JR, MD Unavailable Unavailable RaduCelso arreguin JR, MD Unavailable Unavailable RaduCelso arreguin JR, MD Unavailable Unavailable RaduCelso arreguin JR, MD Unavailable Unavailable Radu JR, J Hong PINTO Unavailable Unavailable RaduCelso arreguin JR, MD Unavailable Unavailable RaduCelso arreguin JR, MD Unavailable Unavailable Radu JR, Celso Pitts MD Unavailable Unavailable Radu JR, Celso Pitts MD Unavailable Unavailable RaduCelso arreguin JR, MD Unavailable Unavailable RaduCelso arreguin JR, MD Unavailable Unavailable RaduCelso arreguin JR, MD Unavailable Unavailable RaduCelso arreguin JR, MD Unavailable Unavailable RaduCelso arreguin JR, MD Unavailable Unavailable RaduCelso arreguin JR, MD Unavailable Unavailable RaduCelso arreguin JR, MD Unavailable Unavailable RaduCelso arreguin JR, MD Unavailable Unavailable RaduCelso arreguin JR, MD Unavailable Unavailable RaduCelso arreguin JR, MD Unavailable Unavailable RaduCelso arreguin JR, MD Unavailable Unavailable RaduCelso arreguin JR, MD Unavailable Unavailable RaduCelso arreguin JR, MD Unavailable Unavailable RaduCelso arreguin JR, MD Unavailable Unavailable RaduCelso arreguin JR, MD Unavailable Unavailable RaduCelso arreguin JR, MD Unavailable Unavailable RaduCelso arreguin JR, MD Unavailable Unavailable RaduCelso arreguin JR, MD Unavailable Unavailable RaduCelso arreguin JR, MD Unavailable Unavailable RaduCelso arreguin JR, MD Unavailable Unavailable RaduCelso arreguin JR, MD Unavailable Unavailable Celso Lovelace JR, MD Unavailable Unavailable Celso Lovelace JR, MD Unavailable Unavailable RaduCelso arreguin JR, MD Unavailable Unavailable RaduCelso arreguin JR, MD Unavailable Unavailable ArduCelso arreguin JR, MD Unavailable Unavailable BARCLAY, DEN COMBER SETTER Unavailable Unavailable BARCLAY, DEN COMBER SETTER Unavailable Unavailable BARCLAY, DEN COMBER SETTER Unavailable Unavailable BARCLAY, DEN COMBER SETTER Unavailable Unavailable Re-disclosure Warning The records that you are about to access may contain information from federally-assisted alcohol or drug abuse programs. If such information is present, then the following federally mandated warning applies: This information has been disclosed to you from records protected by federal confidentiality rules (42 CFR part 2). The federal rules prohibit you from making any further disclosure of this information unless further disclosure is expressly permitted by the written consent of the person to whom it pertains or as otherwise permitted by 42 CFR part 2. A general authorization for the release of medical or other information is NOT sufficient for this purpose. The Federal rules restrict any use of the information to criminally investigate or prosecute any alcohol or drug abuse patient.The records that you are about to access may contain highly sensitive health information, the redisclosure of which is protected by Article 27-F of the [facility] Public Health law. If you continue you may have access to information: Regarding HIV / AIDS; Provided by facilities licensed or operated by the [facility] Office of Mental Health; or Provided by the [facility] Office for People With Developmental Disabilities. If such information is present, then the following [facility] mandated warning applies: This information has been disclosed to you from confidential records which are protected by state law. State law prohibits you from making any further disclosure of this information without the specific written consent of the person to whom it pertains, or as otherwise permitted by law. Any unauthorized further disclosure in violation of state law may result in a fine or group home sentence or both. A general authorization for the release of medical or other information is NOT sufficient authorization for further disc losure. Allergies and Adverse Reactions Type Description Substance Reaction Status Data Source(s ) Bactrim DS, Cipro, Macrobid Bactrim DS, Cipro, Macrobid Bact rim DS, Cipro, Macrobid active NETSMART ([facility]) Family History Family Member Name Family Member Gender Family Member Status Date o f Status Description Data Source(s) Unknown Unknown Problem [facility] patients mother Encounters Encounter Providers Location Date Indications Data Source(s ) 12/14/2020 01:00:00 AM EDT - 021 09:44:21 AM EDT NETSMART ([facility]) Outpatient Attender: [facility] [place] [facility] 01:00:00 PM EDT [facility] ([facility] Outpatient Attender: Jeffrey CUEVAS [place] [facility] 09:45:00 AM EDT [facility] ([facility] Outpatient Attender: Jeffrey CUEVAS [place] [facility] 05/2020 09:30:00 AM EDT [facility] ([facility] Outpatient Attender: Olvin Cartwrightender: DEN ROCKP 10/08/2020 12:34:30 PM EDT - 10/08/2020 02:20:46 PM EDT DocuTap ( [facility]) Outpatient Attender: Antonio CUEVAS 10/01/19 10:55:45 AM EDT - 09/30/2020 11:36:23 AM EDT [facility] ([facility] ) Outpatient Attender: Dat Worrell/Nathaly/Mamadou/Nettie yates 09/01/2020 10:30:00 AM EDT [facility] ([facility] Outpatient Attender: Jeffrey CUEVAS [place] [facility] 10:20:00 AM EDT [facility] Outpatient Attender: SHA LEACH RPA 08/09 09:57:50 AM EDT - 08/09/2020 11:18:08 AM EDT [facility] ([facility] ) Outpatient Attender: Dat Worrell/Nathaly/Mamadou/Nettie yates 07/02/2020 10:00:00 AM EDT [facility] ([facility] Outpatient Attender: Antwan Silva 05/2020 09:39:18 AM EDT - 06/13/2020 10:16:01 AM EDT [facility] ([facility] ) Outpatient Attender: Jeffrey CUEVAS [place] [facility] 06/2020 10:30:00 AM EST [facility] ([facility] Outpatient Attender: Jeffrey CUEVAS [place] [facility] 02:45:00 PM EST [facility] ([facility] Outpatient Attender: Jeffrey CUEVAS [place] [facility] 10:15:00 AM EST [facility] ([facility] Outpatient Attender: Jeffrey CUEVAS [place] [facility] 08:15:00 AM EST [facility] ([facility] Outpatient Attender: Dat Wilkinsonang/Satartia/Mamadou/Reind l 04/02/2020 09:30:00 AM EST [facility] ([facility] Outpatient Attender: Dat Wilkinsonang/Satartia/Mamadou/Reind l 03/20/2020 08:20:00 AM EST [facility] ([facility] Outpatient Attender: Hong Lovelace JR Gm/Satartia/Mamadou/Rein dl 03/18/2020 08:40:00 AM EST [facility] ([facility] Outpatient Attender: Gerald ORDONEZ Gm/Satartia/Mamadou/Jin ndl 02/11/2020 01:30:00 PM EST [facility] ([facility] Outpatient Attender: Jeffrey CUEVAS [place] [facility] 02:45:00 PM EST [facility] ([facility] Outpatient Attender: Jeffrey CUEVAS [place] [facility] 03/2019 02:40:00 PM EDT [facility] ([facility] Immunizations Vaccine Date Status Description Data Source(s) COVID-19 VACCINE Moderna 05/25/2020 12:00:00 AM EDT completed [facility] Vaccine Series Complete: YESThis Data wa s Submitted to [facility] Via [employer]. COVID-19 VACCINE, MRNA-1273, LNP-S (MODERNA)/PF 05/25/2020 1 2:00:00 AM EDT completed [facility] COVID-19 VACCINE Moderna 04/23/2020 12:00:00 AM EST completed [facility] Vaccine Series Complete: NOThis Data was Submitted to [facility] [employer]. COVID-19 VACCINE, MRNA-1273, LNP-S (MODERNA)/PF 04/23/2020 1 2:00:00 AM EST completed [facility] Medications Medication Brand Name Start Date Product Form Dose Route Admi nistrative Instructions Pharmacy Instructions Status Indications Reaction Description Data Source(s) Ensure Active High Protein Ensure Active High Protein 2020 01:00:00 AM EDT completed NETSMAR T ([facility]) Famotidine 40 MG Famotidine 12/14/2020 01:00:00 AM EDT completed NETSMART ([facility] ) Imipramine HCl 50 MG Imipramine HCl 12/14/2020 01:00:00 AM EDT completed [facility] ([facility]) Linzess 145 MCG Linzess 12/14/2020 01:00:00 AM EDT completed [facility] ([facility]) Atorvastatin Calcium 20 MG Atorvastatin Calcium 12/14/2020 01:00:00 A M EDT completed [facility]SMART ( [facility]) Meclizine Hydrochloride 25 MG Oral Tablet MECLIZINE HCL 11/19/2020 12:00:00 AM EDT tablet 30 TAKE ONE TABLET BY MOUTH MARCELINO RY 8 HOURS TAKE ONE TABLET BY MOUTH EVERY 8 HOURS SOLD: 11/19/2020 [facility] 145 mcg 11/04/2020 12:00:00 AM EDT capsule 30 TAKE ONE CAPSULE BY MOUTH EVERY DAY TAKE ONE CAPSULE BY MOUTH EVERY DAY SOLD: 11/10/2020 [facility] 145 mcg 11/04/2020 12:00:00 AM EDT capsule 30 TAKE ONE CAPSULE BY MOUTH EVERY DAY TAKE ONE CAPSULE BY MOUTH EVERY DAY SOLD: 12/08/2020 [facility] 50 mg 10/05/2020 12:00:00 AM EDT tablet 60 TAKE TWO TABLETS BY MOUTH AT BEDTIME MAXIMUM DAILY DOSE = 2 TAKE TWO TABLETS BY MOUTH AT BEDTIME MAX IMUM DAILY DOSE = 2 SOLD: 10/07/2020 [facility] 50 mg 10/05/2020 12:00:00 AM EDT tablet 60 TAKE TWO TABLETS BY MOUTH AT BEDTIME MAXIMUM DAILY DOSE = 2 TAKE TWO TABLETS BY MOUTH AT BEDTIME MAX IMUM DAILY DOSE = 2 SOLD: 12/08/2020 [facility] 50 mg 10/05/2020 12:00:00 AM EDT tablet 60 TAKE TWO TABLETS BY MOUTH AT BEDTIME MAXIMUM DAILY DOSE = 2 TAKE TWO TABLETS BY MOUTH AT BEDTIME MAX IMUM DAILY DOSE = 2 SOLD: 11/10/2020 [facility] 250 mg 09/30/2020 12:00:00 AM EDT capsule 63 TAKE THREE CAPSULES BY MOUTH THREE TIMES A DAY FOR 7 DAYS TAKE THREE CAPSULES BY MOUTH THREE TIMES A DAY FOR 7 DAYS SOLD: 09/30/2020 [facility] Famotidine 40 MG Oral Tablet FAMOTIDINE 09/30/2020 12:00:00 AM EDT tab let 30 TAKE ONE TABLET BY MOUTH EVERY NIGHT AT BEDTIME TAKE ONE TABLET BY MOUTH EVERY NIGHT AT BEDTIME SOLD: 11/04/2020 [facility] Famotidine 40 MG Oral Tablet FAMOTIDINE 09/30/2020 12:00:00 AM EDT tab let 30 TAKE ONE TABLET BY MOUTH EVERY NIGHT AT BEDTIME TAKE ONE TABLET BY MOUTH EVERY NIGHT AT BEDTIME SOLD: 10/02/2020 [facility] Famotidine 40 MG Oral Tablet FAMOTIDINE 09/30/2020 12:00:00 AM EDT tab let 30 TAKE ONE TABLET BY MOUTH EVERY NIGHT AT BEDTIME TAKE ONE TABLET BY MOUTH EVERY NIGHT AT BEDTIME SOLD: 12/08/2020 [facility] atorvastatin 20 MG Oral Tablet ATORVASTATIN CALCIUM 09/03/2020 1 2:00:00 AM EDT tablet 30 TAKE ONE TABLET BY MOUTH EVERY TAKE ONE T ABLET BY MOUTH EVERY SOLD: 09/03/2020 [facility] atorvastatin 20 MG Oral Tablet ATORVASTATIN CALCIUM 09/03/2020 1 2:00:00 AM EDT tablet 30 TAKE ONE TABLET BY MOUTH EVERY TAKE ONE T ABLET BY MOUTH EVERY SOLD: 10/02/2020 [facility] atorvastatin 20 MG Oral Tablet ATORVASTATIN CALCIUM 09/03/2020 1 2:00:00 AM EDT tablet 30 TAKE ONE TABLET BY MOUTH EVERY TAKE ONE T ABLET BY MOUTH EVERY SOLD: 12/08/2020 [facility] atorvastatin 20 MG Oral Tablet ATORVASTATIN CALCIUM 09/03/2020 1 2:00:00 AM EDT tablet 30 TAKE ONE TABLET BY MOUTH EVERY TAKE ONE T ABLET BY MOUTH EVERY SOLD: 11/04/2020 [facility] atorvastatin 20 MG Oral Tablet Atorvastatin Calcium 09/02/2020 1 2:00:00 AM EDT ORAL active [facility] ( [facility] 145 mcg 06/30/2020 12:00:00 AM EDT capsule 30 TAKE ONE CAPSULE BY MOUTH EVERY DAY TAKE ONE CAPSULE BY MOUTH EVERY DAY SOLD: 10/07/2020 [facility] 145 mcg 06/30/2020 12:00:00 AM EDT capsule 30 TAKE ONE CAPSULE BY MOUTH EVERY DAY TAKE ONE CAPSULE BY MOUTH EVERY DAY SOLD: 08/04/2020 [facility] 145 mcg 06/30/2020 12:00:00 AM EDT capsule 30 TAKE ONE CAPSULE BY MOUTH EVERY DAY TAKE ONE CAPSULE BY MOUTH EVERY DAY SOLD: 09/03/2020 [facility] 145 mcg 06/30/2020 12:00:00 AM EDT capsule 30 TAKE ONE CAPSULE BY MOUTH EVERY DAY TAKE ONE CAPSULE BY MOUTH EVERY DAY SOLD: 07/05/2020 [facility] LACTOSE-REDUCED FOOD 06/20/2020 12:00:00 AM EDT liquid 71 10 DRINK ONE CAN BY MOUTH EVERY DAY DRINK ONE CAN BY MOUTH EVERY DAY SOLD: 09/02/2020 [facility] LACTOSE-REDUCED FOOD 06/20/2020 12:00:00 AM EDT liquid 71 10 DRINK ONE CAN BY MOUTH EVERY DAY DRINK ONE CAN BY MOUTH EVERY DAY SOLD: 06/22/2020 [facility] Ensure High Protein 06/17/2020 12:00:00 AM EDT completed [facility] ([facility] Cephalexin 500 MG Oral Capsule CEPHALEXIN 06/13/2020 12:00:00 AM EDT capsule 30 TAKE ONE CAPSULE BY MOUTH THREE TIMES A DAY FOR 10 DAY S TAKE ONE CAPSULE BY MOUTH THREE TIMES A DAY FOR 10 DAYS SOLD: 06/13/2020 [facility] 50 mg 06/03/2020 12:00:00 AM EDT tablet 60 TAKE TWO TABLETS BY MOUTH AT BEDTIME , MAXIMUM DAILY DOSE = 2 TABLETS TAKE TWO TABLETS BY MOUTH AT BEDTIME , MAXIMUM DAILY DOSE = 2 TABLETS SOLD: 09/07/2020 [facility] 50 mg 06/03/2020 12:00:00 AM EDT tablet 60 TAKE TWO TABLETS BY MOUTH AT BEDTIME , MAXIMUM DAILY DOSE = 2 TABLETS TAKE TWO TABLETS BY MOUTH AT BEDTIME , MAXIMUM DAILY DOSE = 2 TABLETS SOLD: 07/09/2020 [facility] 50 mg 06/03/2020 12:00:00 AM EDT tablet 60 TAKE TWO TABLETS BY MOUTH AT BEDTIME , MAXIMUM DAILY DOSE = 2 TABLETS TAKE TWO TABLETS BY MOUTH AT BEDTIME , MAXIMUM DAILY DOSE = 2 TABLETS SOLD: 06/08/2020 [facility] 50 mg 06/03/2020 12:00:00 AM EDT tablet 60 TAKE TWO TABLETS BY MOUTH AT BEDTIME , MAXIMUM DAILY DOSE = 2 TABLETS TAKE TWO TABLETS BY MOUTH AT BEDTIME , MAXIMUM DAILY DOSE = 2 TABLETS SOLD: 08/07/2020 [facility] Famotidine 40 MG Oral Tablet FAMOTIDINE 06/02/2020 12:00:00 AM EDT tab let 30 TAKE ONE TABLET BY MOUTH EVERY NIGHT AT BEDTIME TAKE ONE TABLET BY MOUTH EVERY NIGHT AT BEDTIME SOLD: 07/05/2020 [facility] Famotidine 40 MG Oral Tablet FAMOTIDINE 06/02/2020 12:00:00 AM EDT tab let 30 TAKE ONE TABLET BY MOUTH EVERY NIGHT AT BEDTIME TAKE ONE TABLET BY MOUTH EVERY NIGHT AT BEDTIME SOLD: 09/02/2020 [facility] Famotidine 40 MG Oral Tablet FAMOTIDINE 06/02/2020 12:00:00 AM EDT tab let 30 TAKE ONE TABLET BY MOUTH EVERY NIGHT AT BEDTIME TAKE ONE TABLET BY MOUTH EVERY NIGHT AT BEDTIME SOLD: 06/08/2020 [facility] Famotidine 40 MG Oral Tablet FAMOTIDINE 06/02/2020 12:00:00 AM EDT tab let 30 TAKE ONE TABLET BY MOUTH EVERY NIGHT AT BEDTIME TAKE ONE TABLET BY MOUTH EVERY NIGHT AT BEDTIME SOLD: 08/04/2020 [facility] 2 % 04/30/2020 12:00:00 AM EST ointment 22 APPLY TO LABIA TWO TIMES A DAY FOR 10 DAYS APPLY TO LABIA TWO TIMES A DAY FOR 10 DAYS SOLD: 05/01/2020 [facility] Mupirocin 0.02 MG/MG Topical Ointment Mupirocin 04/30/2020 12:00:00 AM EST completed [facility] ([facility] Guaifenesin 200 MG Oral Tablet Guaifenesin 04/30/2020 12:00:00 AM EST ORAL active [facility] ([facility] NITROFURANTOIN, MACROCRYSTALS 25 MG / Ni trofurantoin, Monohydrate 75 MG Oral Capsule [Macrobid] Macrobid 04/30/2020 12:00:00 AM EST ORAL completed [facility] ([facility] 100 mg 04/30/2020 12:00:00 AM EST capsule 20 TAKE ONE CAPSULE BY MOUTH TWICE A DAY FOR 10 DAYS TAKE ONE CAPSULE BY MOUTH TWICE A DAY FOR 10 DAYS SOLD : 05/01/2020 [facility] 100 mg/5 mL 04/10/2020 12:00:00 AM EST liquid 240 TAKE 2 TEASPOONFUL BY MOUTH EVERY 4 HOURS TAKE 2 TEASPOONFUL BY MOUTH EVERY 4 HOURS SOLD: 04/11/2020 [facility] 100 mg 04/07/2020 12:00:00 AM EST capsule 14 TAKE ONE CAPSULE BY MOUTH TWICE A DAY FOR 7 DAYS TAKE ONE CAPSULE BY MOUTH TWICE A DAY FOR 7 DAYS SOLD: 04/07/2020 [facility] NITROFURANTOIN, MACROCRYSTALS 25 MG / Ni trofurantoin, Monohydrate 75 MG Oral Capsule [Macrobid] Macrobid 04/06/2020 12:00:00 AM EST ORAL completed [facility] ([facility]) 145 mcg 04/04/2020 12:00:00 AM EST capsule 30 TAKE ONE CAPSULE BY MOUTH EVERY DAY TAKE ONE CAPSULE BY MOUTH EVERY DAY SOLD: 04/06/2020 [facility] Cephalexin 500 MG Oral Capsule CEPHALEXIN 03/28/2020 12:00:00 AM EST capsule 40 TAKE ONE CAPSULE BY MOUTH FOUR TIMES A DAY FOR 10 DAYS TAKE ONE CAPSULE BY MOUTH FOUR TIMES A DAY FOR 10 DAYS SOLD: 03/28/2020 [facility] 12 HR Guaifenesin 600 MG Extended Release Oral Tablet [Mucin ex] Mucinex 03/25/2020 12:00:00 AM EST ORAL completed [facility] ([facility], ) 50 mg 03/09/2020 12:00:00 AM EST tablet 60 TAKE TWO TABLETS BY MOUTH EVERY DAY AT BEDTIME TAKE TWO TABLETS BY MOUTH EVERY DAY AT BEDTIME SOLD: [facility] 50 mg 03/09/2020 12:00:00 AM EST tablet 60 TAKE TWO TABLETS BY MOUTH EVERY DAY AT BEDTIME TAKE TWO TABLETS BY MOUTH EVERY DAY AT BEDTIME SOLD: [facility] 50 mg 03/09/2020 12:00:00 AM EST tablet 60 TAKE TWO TABLETS BY MOUTH EVERY DAY AT BEDTIME TAKE TWO TABLETS BY MOUTH EVERY DAY AT BEDTIME SOLD: [facility] pantoprazole 40 MG Delayed Release Oral Tablet PANTOPRAZOLE SODIUM 03/09/2020 12:00:00 AM EST tablet,delayed release (DR/EC) 30 T SULEMA ONE TABLET BY MOUTH EVERY DAY TAKE ONE TABLET BY MOUTH EVERY DAY SOLD: 03/10/2020 [facility] doxycycline hyclate 100 MG Oral Capsule DOXYCYCLINE HYCLATE 03/08/2020 12:00:00 AM EST capsule 20 TAKE ONE CAPSULE BY MOUTH TW O TIMES A DAY FOR 10 DAYS TAKE ONE CAPSULE BY MOUTH TWO TIMES A DAY FOR 10 DAYS SOLD: 03/08/2020 [facility] LACTOSE-REDUCED FOOD 02/04/2020 12:00:00 AM EST liquid 71 10 DRINK ONE CAN BY MOUTH EVERY DAY DRINK ONE CAN BY MOUTH EVERY DAY SOLD: 02/05/2020 [facility] LACTOSE-REDUCED FOOD 02/04/2020 12:00:00 AM EST liquid 71 10 DRINK ONE CAN BY MOUTH EVERY DAY DRINK ONE CAN BY MOUTH EVERY DAY SOLD: 04/30/2020 [facility] Famotidine 40 MG Oral Tablet FAMOTIDINE 01/28/2020 12:00:00 AM EST tab let 30 TAKE ONE TABLET BY MOUTH EVERY NIGHT AT BEDTIME TAKE ONE TABLET BY MOUTH EVERY NIGHT AT BEDTIME SOLD: 03/04/2020 [facility] Famotidine 40 MG Oral Tablet FAMOTIDINE 01/28/2020 12:00:00 AM EST tab let 30 TAKE ONE TABLET BY MOUTH EVERY NIGHT AT BEDTIME TAKE ONE TABLET BY MOUTH EVERY NIGHT AT BEDTIME SOLD: 04/06/2020 [facility] Famotidine 40 MG Oral Tablet FAMOTIDINE 01/28/2020 12:00:00 AM EST tab let 30 TAKE ONE TABLET BY MOUTH EVERY NIGHT AT BEDTIME TAKE ONE TABLET BY MOUTH EVERY NIGHT AT BEDTIME SOLD: 01/28/2020 [facility] Famotidine 40 MG Oral Tablet Famotidine 01/28/2020 12:00:00 AM EST active [facility] ([facility] Famotidine 40 MG Oral Tablet FAMOTIDINE 01/28/2020 12:00:00 AM EST tab let 30 TAKE ONE TABLET BY MOUTH EVERY NIGHT AT BEDTIME TAKE ONE TABLET BY MOUTH EVERY NIGHT AT BEDTIME SOLD: 05/05/2020 [facility] Active High Protein 01/28/2020 12:00:00 AM EST OR AL active [facility] ([facility] ) Cephalexin 500 MG Oral Capsule CEPHALEXIN 01/12/2020 12:00:00 AM EDT capsule 40 TAKE ONE CAPSULE BY MOUTH FOUR TIMES A DAY FOR 10 DAYS TAKE ONE CAPSULE BY MOUTH FOUR TIMES A DAY FOR 10 DAYS SOLD: 01/12/2020 [facility] Cephalexin 500 MG Oral Capsule CEPHALEXIN 01/06/2020 12:00:00 AM EDT capsule 15 TAKE ONE TABLET BY MOUTH THREE TIMES A DAY FOR 5 DAYS TAKE ONE TABLET BY MOUTH THREE TIMES A DAY FOR 5 DAYS SOLD: 01/06/2020 [facility] 500 mg 01/02/2020 12:00:00 AM EDT tablet 14 TAKE ONE TABLET BY MOUTH EVERY 12 HOURS FOR 7 DAYS TAKE ONE TABLET BY MOUTH EVERY 12 HOURS FOR 7 DAYS KRISTINA [facility] 145 mcg 12/13/2019 12:00:00 AM EDT capsule 30 TAKE ONE CAPSULE BY MOUTH EVERY DAY TAKE ONE CAPSULE BY MOUTH EVERY DAY SOLD: 01/11/2020 [facility] 145 mcg 12/13/2019 12:00:00 AM EDT capsule 30 TAKE ONE CAPSULE BY MOUTH EVERY DAY TAKE ONE CAPSULE BY MOUTH EVERY DAY SOLD: 03/08/2020 [facility] 145 mcg 12/13/2019 12:00:00 AM EDT capsule 30 TAKE ONE CAPSULE BY MOUTH EVERY DAY TAKE ONE CAPSULE BY MOUTH EVERY DAY SOLD: 02/09/2020 [facility] 145 mcg 12/13/2019 12:00:00 AM EDT capsule 30 TAKE ONE CAPSULE BY MOUTH EVERY DAY TAKE ONE CAPSULE BY MOUTH EVERY DAY SOLD: 12/14/2019 [facility] atorvastatin 10 MG Oral Tablet ATORVASTATIN CALCIUM 12/12/2019 1 2:00:00 AM EDT tablet 30 TAKE ONE TABLET BY MOUTH EVERY D AY TAKE ONE TABLET BY MOUTH EVERY DAY SOLD: 02/09/2020 [facility] 1,250 mcg (50,000 unit) 12/12/2019 12:00:00 AM EDT capsule 8 TAKE ONE CAPSULE BY MOUTH ONCE WEEKLY TAKE ONE CAPSULE BY MOUTH ONCE WEEKLY SOLD: 12/12/2019 [facility] pantoprazole 40 MG Delayed Release Oral Tablet PANTOPRAZOLE SODIUM 12/12/2019 12:00:00 AM EDT tablet,delayed release (DR/EC) 30 T SULEMA ONE TABLET BY MOUTH EVERY DAY TAKE ONE TABLET BY MOUTH EVERY DAY SOLD: 01/11/2020 [facility] linaclotide 0.145 MG Oral Capsule [Linzess] Linzess 10/0 03/2019 12:00:00 AM EDT active [facility] ( [facility] 50 mg 12/12/2019 12:00:00 AM EDT tablet 60 TAKE TWO TABLETS BY MOUTH EVERY DAY AT BEDTIME TAKE TWO TABLETS BY MOUTH EVERY DAY AT BEDTIME SOLD: [facility] atorvastatin 10 MG Oral Tablet ATORVASTATIN CALCIUM 12/12/2019 1 2:00:00 AM EDT tablet 30 TAKE ONE TABLET BY MOUTH EVERY D AY TAKE ONE TABLET BY MOUTH EVERY DAY SOLD: 12/12/2019 [facility] Ergocalciferol 00769 UNT Oral Capsule Ergocalciferol 12/12/2019 12:00:00 AM EDT ORAL completed [facility] ([facility] pantoprazole 40 MG Delayed Release Oral Tablet PANTOPRAZOLE SODIUM 12/12/2019 12:00:00 AM EDT tablet,delayed release (DR/EC) 30 T SULEMA ONE TABLET BY MOUTH EVERY DAY TAKE ONE TABLET BY MOUTH EVERY DAY SOLD: 12/12/2019 [facility] pantoprazole 40 MG Delayed Release Oral Tablet Pantoprazole Sodium 12/12/2019 12:00:00 AM EDT completed [facility] ([facility] atorvastatin 10 MG Oral Tablet ATORVASTATIN CALCIUM 12/12/2019 1 2:00:00 AM EDT tablet 30 TAKE ONE TABLET BY MOUTH EVERY D AY TAKE ONE TABLET BY MOUTH EVERY DAY SOLD: 01/11/2020 [facility] pantoprazole 40 MG Delayed Release Oral Tablet PANTOPRAZOLE SODIUM 12/12/2019 12:00:00 AM EDT tablet,delayed release (DR/EC) 30 T SULEMA ONE TABLET BY MOUTH EVERY DAY TAKE ONE TABLET BY MOUTH EVERY DAY SOLD: 02/09/2020 [facility] 50 mg 12/12/2019 12:00:00 AM EDT tablet 60 TAKE TWO TABLETS BY MOUTH EVERY DAY AT BEDTIME TAKE TWO TABLETS BY MOUTH EVERY DAY AT BEDTIME SOLD: [facility] 50 mg 12/12/2019 12:00:00 AM EDT tablet 54 TAKE TWO TABLETS BY MOUTH EVERY DAY AT BEDTIME TAKE TWO TABLETS BY MOUTH EVERY DAY AT BEDTIME SOLD: [facility] 50 mg 11/05/2019 12:00:00 AM EDT tablet 60 TAKE TWO TABLETS BY MOUTH AT BEDTIME , MAXIMUM DAILY DOSE = 2 TABLETS TAKE TWO TABLETS BY MOUTH AT BEDTIME , MAXIMUM DAILY DOSE = 2 TABLETS SOLD: 11/10/2019 [facility] Insurance Providers Payer name Policy type / Coverage type Policy ID Covered republican ID Covered republican's relationship to hughes Policy Hughes Plan Information MEDICARE [id number] SP [id number] Medicaid Medicaid [id number] Self [id number] [facility] Medicare Medicare Part B [id number] Self [id number] MEDICAID M [id number] S [id number] MEDICARE C [id number] S [id number] MEDICAID MEDICARE [id number] SP [id number] [facility] COMMUNITY PLAN MCDO [id number] SP [id number] [facility] COMMUNITY PLAN MCDO [id number] SP [id number] [facility] Medigap Part B [id number] Family Dependent [id number] [facility] Health Maintenance Organization (HMO) [id number] Self [id number] [facility] [place] [id number] SP [id number] [facility] Medigap Part B [id number] Family Dependent [id number] [facility] Health Maintenance Organization (HMO) [id number] Self [id number] [facility] Medigap Part B [id number] Family Dependent [id number] [facility] Health Maintenance Organization (HMO) [id number] Self [id number] [employer] [place] 304/804 [id number] SP [id number] [employer] B [id number] S [id number] [facility] O [id number] S [id number] UN[employer] AMERICHOICE XIX -O [id number] 18 [id number] [facility]/P [id number] 18 [id number] SELF PAY UNAVAILABLE SP UNAVAILA BLE BCBS [place] PPO 302/[id number] [employer] P [id number] S [id number] [employer] P [id number] [id number] [id number] [place] [id number] SP [id number] V [id number] [place] 305/805 [id number] SP [id number] [id number] [id number] Problems, Conditions, and Diagnoses Code Display Name Description Problem Type Effective Dates Data Source(s) R29.6 Repeated falls Repeated falls Problem 12/14/2020 01:00: 00 AM EDT [facility] ([facility]) R13.10 Dysphagia, unspecified Dysphagia, unspecified Problem 12/14/2020 01:00:00 AM EDT [facility] ([facility] ) D64.9 Anemia, unspecified Anemia, unspecified Problem 1 01:00:00 AM EDT [facility] ([facility] ) F32.A Depression, unspecified Depression, unspecified Proble m 12/14/2020 01:00:00 AM EDT [facility] ([facility] ) F41.9 Anxiety disorder, unspecified Anxiety disorder, unspec ified Problem 12/14/2020 01:00:00 AM EDT [facility] ([facility] ) M81.0 Age-related osteoporosis without current pathological fracture Age-related osteoporosis without current pathological fracture Problem 01:00:00 AM EDT [facility] ([facility] ) E55.9 Vitamin D deficiency, unspecified Vitamin D defi ciency, unspecified Problem 12/14/2020 01:00:00 AM EDT [facility] ([facility]) E78.5 Hyperlipidemia, unspecified Hyperlipidemia, unspecifie d Problem 12/14/2020 01:00:00 AM EDT [facility] ([facility] ) 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 ) R13.12 Oropharyngeal dysphagia Oropharyngeal dysphagia Proble m 08/27/2020 12:00:00 AM EDT [facility] ([facility] ) K59.00 Constipation Constipation Problem 12/12/2019 12:00:00 A M EDT [facility] ([facility] Surgeries/Procedures Procedure Description Date Indications Data Source(s) OFFICE OUTPATIENT VISIT 25 MINUTES 12/01/2020 12:00:00 AM EDT [facility] ([facility] OFFICE OUTPATIENT VISIT 25 MINUTES 11/10/2020 12:00:00 AM EDT [facility] ([facility] OFFICE OUTPATIENT VISIT 25 MINUTES 10/13/2020 12:00:00 AM EDT [facility] ([facility] OFFICE OUTPATIENT VISIT 10 MINUTES 09/01/2020 12:00:00 AM EDT MED[facility] ([facility], ) OFFICE OUTPATIENT VISIT 25 MINUTES 08/27/2020 12:00:00 AM EDT [facility] ([facility] OFFICE OUTPATIENT VISIT 15 MINUTES 07/02/2020 12:00:00 AM EDT MEDENT ([facility], ) OFFICE OUTPATIENT VISIT 15 MINUTES 05/14/2020 12:00:00 AM EST [facility] ([facility] OFFICE OUTPATIENT VISIT 15 MINUTES 04/30/2020 12:00:00 AM EST MED[facility] ([facility] OFFICE OUTPATIENT VISIT 15 MINUTES 04/06/2020 12:00:00 AM EST [facility] ([facility] OFFICE OUTPATIENT VISIT 25 MINUTES 04/03/2020 12:00:00 AM EST [facility] ([facility] OFFICE OUTPATIENT VISIT 15 MINUTES 04/02/2020 12:00:00 AM EST MED[facility] ([facility], ) LARYNGOSCOPY FLEXIBLE FIBEROPTIC DIAGNOSTIC 03/20/2020 12:00:00 AM EST [facility] ([facility], ) OFFICE OUTPATIENT NEW 30 MINUTES 03/20/2020 12:00:00 A M EST [facility] ([facility], ) OFFICE OUTPATIENT VISIT 10 MINUTES 03/18/2020 12:00:00 AM EST [facility] ([facility], ) Endoscopy Upper GI Biopsy 02/27/2020 12:00:00 AM EST [facility] ([facility], ) Results ID Date Data Source [id number] 12/01/2020 01:42:00 PM EDT [facility] ([facility] Name Value Range Interpretation Code Description Data Megan rce(s) Supporting Document(s) Hepatitis B virus surface Ag [Presence] in Serum or Pl asma by Immunoassay Laboratory test result [facility] ([facility] Hepatitis A virus IgM Ab [Presence] in Serum or Plasma by Immunoassay Laboratory test result [facility] Hepatitis C virus Ab Signal/Cutoff in Serum or Plasma by Immunoassay Laboratory test result 0.0-0.9 [facility] ([facility] <content>Negative: < 0.8</content><b r/><content>Indeterminate: 0.8 - 0.9</content>
<content>Positive: > 0.9</content>
<content>The CDC recommends that a positive HCV antibody result</content>
<content>be followed up with a HCV Nucleic Acid Amplification</content>
<content>test (899162).</content>
<content></content> Hep B Core Ab, IgM Laboratory test result [facility] ([facility] ID Date Data Source [id number] 12/01/2020 01:42:00 PM EDT [facility] ([facility] Name Value Range Interpretation Code Description Data Megan rce(s) Supporting Document(s) Gamma glutamyl transferase [Enzymatic activity/volume] in Serum or Plasma 28 IU/L 0-60 [facility] Nuclear Ab [Titer] in Serum by Immunofluorescence Laboratory test res ult [facility] ([facility] <content>Negative <1:80</content>
<content>Borderline 1:80</content>
<content>Positive >1:80</content>
<content>ICAP nomenclature: AC-0</content>
<content>For more information about Hep-2 cell patterns use</content>
<content>ANApatterns.org, the official website for the International</content>
<content>Consensus on Antinuclear Antibody (CARRIE) Patterns (ICAP).</content>
<content></content> Mitochondrial (M2) Antibody Laboratory test result 0.0-20.0 [facility] ([facility] Negative 0.0 - 20.0 Equivocal 20.1 - 24.9 Positive >24.9 Mitochondrial (M2) Antibodies are found in 90-96% of patients with primary biliary cirrhosis. Ceruloplasmin [Mass/volume] in Serum or Plasma 27.6 mg/dL 19.0-39.0 [facility] ([facility] Ferritin [Mass/volume] in Serum or Plasma 114 ng/mL 15-150 [facility] ([facility] ID Date Data Source [id number] 12/01/2020 01:42:00 PM EDT [facility] ([facility] Name Value Range Interpretation Code Description Data Megan rce(s) Supporting Document(s) Albumin [Mass/volume] in Serum or Plasma 4.4 g/dL 3.8-4.8 [facility] ([facility] Protein [Mass/volume] in Serum or Plasma 6.9 g/dL 6.0-8.5 [facility] ([facility] Bilirubin.conjugated [Mass/volume] in Serum or Plasma 0.11 mg/dL 0.00 -0.40 [facility] ([facility] Bilirubin.total [Mass/volume] in Serum or Plasma 0.3 mg/dL 0.0-1.2 [facility] ([facility] Alkaline phosphatase [Enzymatic activity/volume] in Serum or Plasma 135 IU/L 44-121 Above high normal [facility] Please note reference interval change* * Alanine aminotransferase [Enzymatic activity/volume] in Seru m or Plasma 75 IU/L 0-32 Above high normal [facility] Aspartate aminotransferase [Enzymatic activity/volume] in Serum or Plasma 79 IU/L 0-40 Above high normal [facility] ([facility] ID Date Data Source [id number] 11/10/2020 10:29:00 AM EDT [facility] ([facility] Name Value Range Interpretation Code Description Data Megan rce(s) Supporting Document(s) BUN 18 mg/dL 8-23 [facility] Glu 108 mg/dL 70-110 [facility] BUN/Creatinine Ratio 22.2 CALC [facility] ([facility] Creat 0.8 mg/dL 0.5-1.0 [facility] Na 140 mmol/L 136-145 [facility] ([facility] Co2 27.7 mmol/L 22.0-29.0 [facility] K 3.6 mmol/L 3.5-5.1 [facility] ([facility] CL 97.5 mmol/L 98.0-107.0 Below low normal [facility] ([facility] TP 7.3 g/dL 6.6-8.7 [facility] CA 10.3 mg/dL 8.6-10.2 Above high normal [facility] ([facility] Alb 4.7 g/dL 3.4-4.8 [facility] ([facility] Alp 101.8 U/L 35-129 [facility] Globulin 2.7 CALC [facility] ([facility] A/G Ratio 1.7 CALC [facility] ([facility] Alt (SGPT) 40 U/L 0-41 [facility] ([facility] Ast (Sgot) 66 U/L 0-40 Above high normal [facility] ([facility] Osmolality-Calculated 281.5 CALC [facility] ([facility] Tbili 0.36 mg/dL 0.0-1.2 [facility] ([facility] Anion Gap 18 mmol/L [facility] ([facility] eGFR 88 # [facility] ( [facility] CKD-EPI eGFR Non-Afr. Syrian 76 # [facility] ([facility] CKD-EPI ID Date Data Source [id number] 08/27/2020 11:14:00 AM EDT [facility] ([facility] Name Value Range Interpretation Code Description Data Megan rce(s) Supporting Document(s) Trig 50 mg/dL 40-200 [facility] NORMAL RANGES Age WBC RBC HGB HCT [...] HCT IS 5% LESS SOURCE FOR DATA: [employer] 1800 OPERATION MANUAL( AUTOMATED BLOOD COUNTS AND [...] ADOLESCENTS REPRESENTS INDIVIDUALA AGED 2-19 YEARS EXCLUSIVE. Chol 303 mg/dL 0-200 Above high normal [facility] ([facility] NORMAL RANGES Age WBC RBC HGB HCT [...] HCT IS 5% LESS SOURCE FOR DATA: [employer] 1800 OPERATION MANUAL( AUTOMATED BLOOD COUNTS AND [...] ADOLESCENTS REPRESENTS INDIVIDUALA AGED 2-19 YEARS EXCLUSIVE. LDL_C 187 Calc 75-129 Above high normal [facility] ([facility] NORMAL RANGES Age WBC RBC HGB HCT [...] HCT IS 5% LESS SOURCE FOR DATA: [employer] 1800 OPERATION MANUAL( AUTOMATED BLOOD COUNTS AND [...] ADOLESCENTS REPRESENTS INDIVIDUALA AGED 2-19 YEARS EXCLUSIVE. Cholesterol in HDL [Mass/volume] in Serum or Plasma 106 mg/dL 45-65 Above high normal [facility] ([facility] NORMAL RANGES Age WBC RBC HGB HCT [...] HCT IS 5% LESS SOURCE FOR DATA: [employer] 1800 OPERATION MANUAL( AUTOMATED BLOOD COUNTS AND [...] DESIRABLE: <130 MG/DL <110 MG/DL BORDERLINE-HIGH RISK: 130- 159 MG/DL 110-129 MG/DL HIGH RISK: >160 MG/DL >130 MG/DL *CHILDREN AND ADOLESCENTS REPRESENTS INDIVIDUALA AGED 2-19 YEARS EXCLUSIVE. Cho/HDL Ratio 2.9 CALC [facility] ([facility] NORMAL RANGES Age WBC RBC HGB HCT [...] HCT IS 5% LESS SOURCE FOR DATA: [employer]IREE DYN 1800 OPERATION MANUAL( AUTOMATED BLOOD COUNTS [...] DESIRABLE: <130 MG/DL <110 MG/DL BORDERLINE-HIGH RISK: 130- 159 MG/DL 110-129 MG/DL HIGH RISK: >160 MG/DL >130 MG/DL *CHILDREN AND ADOLESCENTS REPRESENTS INDIVIDUALA AGED 2-19 YEARS EXCLUSIVE. ID Date Data Source [id number] 08/27/2020 11:14:00 AM [facility] [place] ([facility] Name Value Range Interpretation Code Description Data Megan rce(s) Supporting Document(s) BUN 18 mg/dL 8-23 [facility] NORMAL RANGES Age WBC RBC HGB HCT [...] HCT IS 5% LESS SOURCE FOR DATA: [employer] 1800 OPERATION MANUAL( AUTOMATED BLOOD COUNTS AND [...] DESIRABLE: <130 MG/DL <110 MG/DL BORDERLINE-HIGH RISK: 130- 159 MG/DL 110-129 MG/DL HIGH RISK: >160 MG/DL >130 MG/DL *CHILDREN AND ADOLESCENTS REPRESENTS INDIVIDUALA AGED 2-19 YEARS EXCLUSIVE. Creat 0.9 mg/dL 0.5-1.0 CL ([facility] NORMAL RANGES Age WBC RBC HGB HCT [...] HCT IS 5% LESS SOURCE FOR DATA: [employer]force 1800 OPERATION MANUAL( AUTOMATED BLOOD COUNTS AND [...] DESIRABLE: <130 MG/DL <110 MG/DL BORDERLINE-HIGH RISK: 130- 159 MG/DL 110-129 MG/DL HIGH RISK: >160 MG/DL >130 MG/DL *CHILDREN AND ADOLESCENTS REPRESENTS INDIVIDUALA AGED 2-19 YEARS EXCLUSIVE. Glu 111 mg/dL 70-110 Above high normal [facility] ([facility] NORMAL RANGES Age WBC RBC HGB HCT [...] HCT IS 5% LESS SOURCE FOR DATA: [employer]force 1800 OPERATION MANUAL( AUTOMATED BLOOD COUNTS AND [...] DESIRABLE: <130 MG/DL <110 MG/DL BORDERLINE-HIGH RISK: 130- 159 MG/DL 110-129 MG/DL HIGH RISK: >160 MG/DL >130 MG/DL *CHILDREN AND ADOLESCENTS REPRESENTS INDIVIDUALA AGED 2-19 YEARS EXCLUSIVE. K 4.4 mmol/L 3.5-5.1 [facility] ([facility] NORMAL RANGES Age WBC RBC HGB HCT [...] HCT IS 5% LESS SOURCE FOR DATA: [employer]force 1800 OPERATION MANUAL( AUTOMATED BLOOD COUNTS AND [...] DESIRABLE: <130 MG/DL <110 MG/DL BORDERLINE-HIGH RISK: 130- 159 MG/DL 110-129 MG/DL HIGH RISK: >160 MG/DL >130 MG/DL *CHILDREN AND ADOLESCENTS REPRESENTS INDIVIDUALA AGED 2-19 YEARS EXCLUSIVE. BUN/Creatinine Ratio 20.9 CALC [facility] ([facility] NORMAL RANGES Age WBC RBC HGB HCT [...] HCT IS 5% LESS SOURCE FOR DATA: [employer]force 1800 OPERATION MANUAL( AUTOMATED BLOOD COUNTS AND [...] DESIRABLE: <130 MG/DL <110 MG/DL BORDERLINE-HIGH RISK: 130- 159 MG/DL 110-129 MG/DL HIGH RISK: >160 MG/DL >130 MG/DL *CHILDREN AND ADOLESCENTS REPRESENTS INDIVIDUALA AGED 2-19 YEARS EXCLUSIVE. Na 137 mmol/L 136-145 [facility] NORMAL RANGES Age WBC RBC HGB HCT [...] HCT IS 5% LESS SOURCE FOR DATA: [employer] DYN 1800 OPERATION MANUAL( AUTOMATED BLOOD COUNTS [...] DESIRABLE: <130 MG/DL <110 MG/DL BORDERLINE-HIGH RISK: 130- 159 MG/DL 110-129 MG/DL HIGH RISK: >160 MG/DL >130 MG/DL *CHILDREN AND ADOLESCENTS REPRESENTS INDIVIDUALA AGED 2-19 YEARS EXCLUSIVE. CL 98.0 mmol/L 98.0-107.0 [facility] ([facility] NORMAL RANGES Age WBC RBC HGB HCT [...] HCT IS 5% LESS SOURCE FOR DATA: [employer]force 1800 OPERATION MANUAL( AUTOMATED BLOOD COUNTS AND [...] DESIRABLE: <130 MG/DL <110 MG/DL BORDERLINE-HIGH RISK: 130- 159 MG/DL 110-129 MG/DL HIGH RISK: >160 MG/DL >130 MG/DL *CHILDREN AND ADOLESCENTS REPRESENTS INDIVIDUALA AGED 2-19 YEARS EXCLUSIVE. Co2 25.9 mmol/L 22.0-29.0 [facility] ([facility] NORMAL RANGES Age WBC RBC HGB HCT [...] HCT IS 5% LESS SOURCE FOR DATA: [employer]force 1800 OPERATION MANUAL( AUTOMATED BLOOD COUNTS AND [...] DESIRABLE: <130 MG/DL <110 MG/DL BORDERLINE-HIGH RISK: 130- 159 MG/DL 110-129 MG/DL HIGH RISK: >160 MG/DL >130 MG/DL *CHILDREN AND ADOLESCENTS REPRESENTS INDIVIDUALA AGED 2-19 YEARS EXCLUSIVE. CA 9.9 mg/dL 8.6-10.2 [facility] ([facility] NORMAL RANGES Age WBC RBC HGB HCT [...] HCT IS 5% LESS SOURCE FOR DATA: [employer] 1800 OPERATION MANUAL( AUTOMATED BLOOD COUNTS AND [...] DESIRABLE: <130 MG/DL <110 MG/DL BORDERLINE-HIGH RISK: 130- 159 MG/DL 110-129 MG/DL HIGH RISK: >160 MG/DL >130 MG/DL *CHILDREN AND ADOLESCENTS REPRESENTS INDIVIDUALA AGED 2-19 YEARS EXCLUSIVE. Alb 4.4 g/dL 3.4-4.8 [facility] ([facility] NORMAL RANGES Age WBC RBC HGB HCT [...] HCT IS 5% LESS SOURCE FOR DATA: [employer] 1800 OPERATION MANUAL( AUTOMATED BLOOD COUNTS AND [...] DESIRABLE: <130 MG/DL <110 MG/DL BORDERLINE-HIGH RISK: 130- 159 MG/DL 110-129 MG/DL HIGH RISK: >160 MG/DL >130 MG/DL *CHILDREN AND ADOLESCENTS REPRESENTS INDIVIDUALA AGED 2-19 YEARS EXCLUSIVE. TP 6.9 g/dL 6.6-8.7 [facility] NORMAL RANGES Age WBC RBC HGB HCT [...] HCT IS 5% LESS SOURCE FOR DATA: DESIREE [facility] 1800 OPERATION MANUAL( AUTOMATED BLOOD COUNTS AND [...] DESIRABLE: <130 MG/DL <110 MG/DL BORDERLINE-HIGH RISK: 130- 159 MG/DL 110-129 MG/DL HIGH RISK: >160 MG/DL >130 MG/DL *CHILDREN AND ADOLESCENTS REPRESENTS INDIVIDUALA AGED 2-19 YEARS EXCLUSIVE. A/G Ratio 1.8 CALC [place] ([facility] NORMAL RANGES Age WBC RBC HGB HCT [...] HCT IS 5% LESS SOURCE FOR DATA: [employer] 1800 OPERATION MANUAL( AUTOMATED BLOOD COUNTS AND [...] DESIRABLE: <130 MG/DL <110 MG/DL BORDERLINE-HIGH RISK: 130- 159 MG/DL 110-129 MG/DL HIGH RISK: >160 MG/DL >130 MG/DL *CHILDREN AND ADOLESCENTS REPRESENTS INDIVIDUALA AGED 2-19 YEARS EXCLUSIVE. Alp 139.6 U/L 35-129 Above high normal [facility] ([facility] NORMAL RANGES Age WBC RBC HGB HCT [...] HCT IS 5% LESS SOURCE FOR DATA: [employer] 1800 OPERATION MANUAL( AUTOMATED BLOOD COUNTS AND [...] DESIRABLE: <130 MG/DL <110 MG/DL BORDERLINE-HIGH RISK: 130- 159 MG/DL 110-129 MG/DL HIGH RISK: >160 MG/DL >130 MG/DL *CHILDREN AND ADOLESCENTS REPRESENTS INDIVIDUALA AGED 2-19 YEARS EXCLUSIVE. Globulin 2.4 CALC [facility] ([facility] NORMAL RANGES Age WBC RBC HGB HCT [...] HCT IS 5% LESS SOURCE FOR DATA: [employer] 1800 OPERATION MANUAL( AUTOMATED BLOOD COUNTS AND [...] DESIRABLE: <130 MG/DL <110 MG/DL BORDERLINE-HIGH RISK: 130- 159 MG/DL 110-129 MG/DL HIGH RISK: >160 MG/DL >130 MG/DL *CHILDREN AND ADOLESCENTS REPRESENTS INDIVIDUALA AGED 2-19 YEARS EXCLUSIVE. Tbili 0.13 mg/dL 0.0-1.2 [facility] ([facility] NORMAL RANGES Age WBC RBC HGB HCT [...] HCT IS 5% LESS SOURCE FOR DATA: [employer] 1800 OPERATION MANUAL( AUTOMATED BLOOD COUNTS AND [...] DESIRABLE: <130 MG/DL <110 MG/DL BORDERLINE-HIGH RISK: 130- 159 MG/DL 110-129 MG/DL HIGH RISK: >160 MG/DL >130 MG/DL *CHILDREN AND ADOLESCENTS REPRESENTS INDIVIDUALA AGED 2-19 YEARS EXCLUSIVE. Alt (SGPT) 29 U/L 0-41 [facility] ([facility] NORMAL RANGES Age WBC RBC HGB HCT [...] HCT IS 5% LESS SOURCE FOR DATA: [employer] 1800 OPERATION MANUAL( AUTOMATED BLOOD COUNTS AND [...] DESIRABLE: <130 MG/DL <110 MG/DL BORDERLINE-HIGH RISK: 130- 159 MG/DL 110-129 MG/DL HIGH RISK: >160 MG/DL >130 MG/DL *CHILDREN AND ADOLESCENTS REPRESENTS INDIVIDUALA AGED 2-19 YEARS EXCLUSIVE. Ast (Sgot) 50 U/L 0-40 Above high normal [facility] ([facility] NORMAL RANGES Age WBC RBC HGB HCT [...] HCT IS 5% LESS SOURCE FOR DATA: [employer]YN 1800 OPERATION MANUAL( AUTOMATED BLOOD COUNTS [...] DESIRABLE: <130 MG/DL <110 MG/DL BORDERLINE-HIGH RISK: 130- 159 MG/DL 110-129 MG/DL HIGH RISK: >160 MG/DL >130 MG/DL *CHILDREN AND ADOLESCENTS REPRESENTS INDIVIDUALA AGED 2-19 YEARS EXCLUSIVE. Osmolality-Calculated 276.4 CALC [place] ([facility] NORMAL RANGES Age WBC RBC HGB HCT [...] HCT IS 5% LESS SOURCE FOR DATA: [employer] 1800 OPERATION MANUAL( AUTOMATED BLOOD COUNTS AND [...] DESIRABLE: <130 MG/DL <110 MG/DL BORDERLINE-HIGH RISK: 130- 159 MG/DL 110-129 MG/DL HIGH RISK: >160 MG/DL >130 MG/DL *CHILDREN AND ADOLESCENTS REPRESENTS INDIVIDUALA AGED 2-19 YEARS EXCLUSIVE. Anion Gap 18 mmol/L [facility] ([facility] NORMAL RANGES Age WBC RBC HGB HCT [...] HCT IS 5% LESS SOURCE FOR DATA: [employer] 1800 OPERATION MANUAL( AUTOMATED BLOOD COUNTS AND [...] DESIRABLE: <130 MG/DL <110 MG/DL BORDERLINE-HIGH RISK: 130- 159 MG/DL 110-129 MG/DL HIGH RISK: >160 MG/DL >130 MG/DL *CHILDREN AND ADOLESCENTS REPRESENTS INDIVIDUALA AGED 2-19 YEARS EXCLUSIVE. eGFR 77 # [facility] ( [facility] NORMAL RANGES Age WBC RBC HGB HCT [...] HCT IS 5% LESS SOURCE FOR DATA: [employer] DYN 1800 OPERATION MANUAL( AUTOMATED BLOOD COUNTS [...] DESIRABLE: <130 MG/DL <110 MG/DL BORDERLINE-HIGH RISK: 130- 159 MG/DL 110-129 MG/DL HIGH RISK: >160 MG/DL >130 MG/DL *CHILDREN AND ADOLESCENTS REPRESENTS INDIVIDUALA AGED 2-19 YEARS EXCLUSIVE. eGFR Non-Afr. Syrian 66 # [facility] ([facility] NORMAL RANGES Age WBC RBC HGB HCT [...] HCT IS 5% LESS SOURCE FOR DATA: [employer] 1800 OPERATION MANUAL( AUTOMATED BLOOD COUNTS AND [...] DESIRABLE: <130 MG/DL <110 MG/DL BORDERLINE-HIGH RISK: 130- 159 MG/DL 110-129 MG/DL HIGH RISK: >160 MG/DL >130 MG/DL *CHILDREN AND ADOLESCENTS REPRESENTS INDIVIDUALA AGED 2-19 YEARS EXCLUSIVE. ID Date Data Source [id number] 08/27/2020 11:14:00 AM EDT CL ([facility] Name Value Range Interpretation Code Description Data Megan rce(s) Supporting Document(s) WBC 4.7 10E3/uL 4.1-10.9 CL ([facility]) NORMAL RANGES Age WBC RBC HGB HCT [...] HCT IS 5% LESS SOURCE FOR DATA: [employer] 1800 OPERATION MANUAL( AUTOMATED BLOOD COUNTS AND [...] DESIRABLE: <130 MG/DL <110 MG/DL BORDERLINE-HIGH RISK: 130- 159 MG/DL 110-129 MG/DL HIGH RISK: >160 MG/DL >130 MG/DL *CHILDREN AND ADOLESCENTS REPRESENTS INDIVIDUALA AGED 2-19 YEARS EXCLUSIVE. RBC 4.08 10E6/uL 4.20-6.30 Below low normal [facility] ([facility] NORMAL RANGES Age WBC RBC HGB HCT [...] HCT IS 5% LESS SOURCE FOR DATA: [employer] 1800 OPERATION MANUAL( AUTOMATED BLOOD COUNTS AND [...] DESIRABLE: <130 MG/DL <110 MG/DL BORDERLINE-HIGH RISK: 130- 159 MG/DL 110-129 MG/DL HIGH RISK: >160 MG/DL >130 MG/DL *CHILDREN AND ADOLESCENTS REPRESENTS INDIVIDUALA AGED 2-19 YEARS EXCLUSIVE. HCT 37.9 % 37.0-51.0 [facility] ([facility] NORMAL RANGES Age WBC RBC HGB HCT [...] HCT IS 5% LESS SOURCE FOR DATA: [employer] 1800 OPERATION MANUAL( AUTOMATED BLOOD COUNTS AND [...] DESIRABLE: <130 MG/DL <110 MG/DL BORDERLINE-HIGH RISK: 130- 159 MG/DL 110-129 MG/DL HIGH RISK: >160 MG/DL >130 MG/DL *CHILDREN AND ADOLESCENTS REPRESENTS INDIVIDUALA AGED 2-19 YEARS EXCLUSIVE. HGB 12.1 g/dL 12.0-18.0 [facility] NORMAL RANGES Age WBC RBC HGB HCT [...] HCT IS 5% LESS SOURCE FOR DATA: [employer] 1800 OPERATION MANUAL( AUTOMATED BLOOD COUNTS AND [...] DESIRABLE: <130 MG/DL <110 MG/DL BORDERLINE-HIGH RISK: 130- 159 MG/DL 110-129 MG/DL HIGH RISK: >160 MG/DL >130 MG/DL *CHILDREN AND ADOLESCENTS REPRESENTS INDIVIDUALA AGED 2-19 YEARS EXCLUSIVE. MCV 92.9 fL 80.0-97.0 [facility] ([facility] NORMAL RANGES Age WBC RBC HGB HCT [...] HCT IS 5% LESS SOURCE FOR DATA: [employer] 1800 OPERATION MANUAL( AUTOMATED BLOOD COUNTS AND [...] DESIRABLE: <130 MG/DL <110 MG/DL BORDERLINE-HIGH RISK: 130- 159 MG/DL 110-129 MG/DL HIGH RISK: >160 MG/DL >130 MG/DL *CHILDREN AND ADOLESCENTS REPRESENTS INDIVIDUALA AGED 2-19 YEARS EXCLUSIVE. MCHC 31.9 g/dL 31.0-36.0 [facility] ([facility] NORMAL RANGES Age WBC RBC HGB HCT [...] HCT IS 5% LESS SOURCE FOR DATA: [employer] 1800 OPERATION MANUAL( AUTOMATED BLOOD COUNTS AND [...] DESIRABLE: <130 MG/DL <110 MG/DL BORDERLINE-HIGH RISK: 130- 159 MG/DL 110-129 MG/DL HIGH RISK: >160 MG/DL >130 MG/DL *CHILDREN AND ADOLESCENTS REPRESENTS INDIVIDUALA AGED 2-19 YEARS EXCLUSIVE. MCH 29.7 pg 26.0-32.0 [facility] ([facility] NORMAL RANGES Age WBC RBC HGB HCT [...] HCT IS 5% LESS SOURCE FOR DATA: [employer] 1800 OPERATION MANUAL( AUTOMATED BLOOD COUNTS AND [...] DESIRABLE: <130 MG/DL <110 MG/DL BORDERLINE-HIGH RISK: 130- 159 MG/DL 110-129 MG/DL HIGH RISK: >160 MG/DL >130 MG/DL *CHILDREN AND ADOLESCENTS REPRESENTS INDIVIDUALA AGED 2-19 YEARS EXCLUSIVE. Lym% 19.9 % 10.0-58.5 [facility] ([facility] NORMAL RANGES Age WBC RBC HGB HCT [...] HCT IS 5% LESS SOURCE FOR DATA: [employer] 1800 OPERATION MANUAL( AUTOMATED BLOOD COUNTS AND [...] DESIRABLE: <130 MG/DL <110 MG/DL BORDERLINE-HIGH RISK: 130- 159 MG/DL 110-129 MG/DL HIGH RISK: >160 MG/DL >130 MG/DL *CHILDREN AND ADOLESCENTS REPRESENTS INDIVIDUALA AGED 2-19 YEARS EXCLUSIVE. RDW-CV 12.6 % 11.5-14.5 [facility] ([facility] NORMAL RANGES Age WBC RBC HGB HCT [...] HCT IS 5% LESS SOURCE FOR DATA: [employer] 1800 OPERATION MANUAL( AUTOMATED BLOOD COUNTS AND [...] DESIRABLE: <130 MG/DL <110 MG/DL BORDERLINE-HIGH RISK: 130- 159 MG/DL 110-129 MG/DL HIGH RISK: >160 MG/DL >130 MG/DL *CHILDREN AND ADOLESCENTS REPRESENTS INDIVIDUALA AGED 2-19 YEARS EXCLUSIVE. PLT 377 10E3/uL 140-440 [facility] ([facility] NORMAL RANGES Age WBC RBC HGB HCT [...] HCT IS 5% LESS SOURCE FOR DATA: DESIREE DYN 1800 OPERATION MANUAL( AUTOMATED BLOOD COUNTS [...] DESIRABLE: <130 MG/DL <110 MG/DL BORDERLINE-HIGH RISK: 130- 159 MG/DL 110-129 MG/DL HIGH RISK: >160 MG/DL >130 MG/DL *CHILDREN AND ADOLESCENTS REPRESENTS INDIVIDUALA AGED 2-19 YEARS EXCLUSIVE. Lym# 0.9 10E3/uL 0.6-4.1 [facility] ([facility] NORMAL RANGES Age WBC RBC HGB HCT [...] HCT IS 5% LESS SOURCE FOR DATA: [employer] 1800 OPERATION MANUAL( AUTOMATED BLOOD COUNTS AND [...] DESIRABLE: <130 MG/DL <110 MG/DL BORDERLINE-HIGH RISK: 130- 159 MG/DL 110-129 MG/DL HIGH RISK: >160 MG/DL >130 MG/DL *CHILDREN AND ADOLESCENTS REPRESENTS INDIVIDUALA AGED 2-19 YEARS EXCLUSIVE. Neut% 69.4 % 37.0-92.0 [facility] ([facility] NORMAL RANGES Age WBC RBC HGB HCT [...] HCT IS 5% LESS SOURCE FOR DATA: [employer] 1800 OPERATION MANUAL( AUTOMATED BLOOD COUNTS AND [...] DESIRABLE: <130 MG/DL <110 MG/DL BORDERLINE-HIGH RISK: 130- 159 MG/DL 110-129 MG/DL HIGH RISK: >160 MG/DL >130 MG/DL *CHILDREN AND ADOLESCENTS REPRESENTS INDIVIDUALA AGED 2-19 YEARS EXCLUSIVE. MXD% 10.7 % 0.1-24.0 [facility] ([facility] NORMAL RANGES Age WBC RBC HGB HCT [...] HCT IS 5% LESS SOURCE FOR DATA: [employer] DYN 1800 OPERATION MANUAL( AUTOMATED BLOOD COUNTS [...] DESIRABLE: <130 MG/DL <110 MG/DL BORDERLINE-HIGH RISK: 130- 159 MG/DL 110-129 MG/DL HIGH RISK: >160 MG/DL >130 MG/DL *CHILDREN AND ADOLESCENTS REPRESENTS INDIVIDUALA AGED 2-19 YEARS EXCLUSIVE. MPV 9.4 fL 9.0-13.0 [facility] ([facility] NORMAL RANGES Age WBC RBC HGB HCT [...] HCT IS 5% LESS SOURCE FOR DATA: [employer] 1800 OPERATION MANUAL( AUTOMATED BLOOD COUNTS AND [...] DESIRABLE: <130 MG/DL <110 MG/DL BORDERLINE-HIGH RISK: 130- 159 MG/DL 110-129 MG/DL HIGH RISK: >160 MG/DL >130 MG/DL *CHILDREN AND ADOLESCENTS REPRESENTS INDIVIDUALA AGED 2-19 YEARS EXCLUSIVE. Neut# 3.3 % 2.0-7.8 [facility] NORMAL RANGES Age WBC RBC HGB HCT [...] HCT IS 5% LESS SOURCE FOR DATA: [employer] 1800 OPERATION MANUAL( AUTOMATED BLOOD COUNTS AND [...] DESIRABLE: <130 MG/DL <110 MG/DL BORDERLINE-HIGH RISK: 130- 159 MG/DL 110-129 MG/DL HIGH RISK: >160 MG/DL >130 MG/DL *CHILDREN AND ADOLESCENTS REPRESENTS INDIVIDUALA AGED 2-19 YEARS EXCLUSIVE. MXD# 0.5 10E3/uL 0.0-1.8 [facility] ([facility] NORMAL RANGES Age WBC RBC HGB HCT [...] HCT IS 5% LESS SOURCE FOR DATA: [employer] 1800 OPERATION MANUAL( AUTOMATED BLOOD COUNTS AND [...] DESIRABLE: <130 MG/DL <110 MG/DL BORDERLINE-HIGH RISK: 130- 159 MG/DL 110-129 MG/DL HIGH RISK: >160 MG/DL >130 MG/DL *CHILDREN AND ADOLESCENTS REPRESENTS INDIVIDUALA AGED 2-19 YEARS EXCLUSIVE. ID Date Data Source [id number] 08/27/2020 11:10:00 AM EDT [facility] ([facility] Name Value Range Interpretation Code Description Data Megan rce(s) Supporting Document(s) Thyrotropin [Units/volume] in Serum or Plasma 1.796 ulU/mL 0.60-4.8 [facility] ([facility] ID Date Data Source [id number] 05/14/2020 01:13:00 PM EST [facility] ([facility] Name Value Range Interpretation Code Description Data Megan rce(s) Supporting Document(s) Urine Culture, Routine Laboratory test result [facility] ([facility] SRC:URINE Bacteria identified in Urine by Culture Laboratory test result [facility] ([facility] SRC:URINE ID Date Data Source [id number] 05/14/2020 11:36:00 AM EST [facility] ([facility] Name Value Range Interpretation Code Description Data Megan rce(s) Supporting Document(s) Color Urine Laboratory test result M [facility]ENT ([facility] Appearance of Urine Laboratory test result [facility] ([facility] PH Urine 6.0 5.0-8.0 [facility] Specific [place] 1.030 1.00-1.03 [facility] ([facility] Glucose Urine Laboratory test result [facility] ([facility] Bilirubin.total [Presence] in Urine by Test strip Laboratory michelle t result Above high normal [facility] ([facility] ) Ketones Laboratory test result [facility] ([facility] Blood Urine Laboratory test result M EDENT ([facility] Protein Urine Laboratory test result [facility] ([facility] Urobilinogen 0.2 EU/dl 0.2-1.0 [facility] ([facility] Nitrite Laboratory test result [facility] ([facility] Leukocytes Laboratory test result ME DENT ([facility] ID Date Data Source [id number] 04/30/2020 04:07:00 PM EST [facility] ([facility] Name Value Range Interpretation Code Description Data Megan rce(s) Supporting Document(s) Bacteria identified in Unspecified specimen by Aerobe culture Laboratory test result [facility] ([facility] Source of Specimen: URINE Bacteria identified in Unspecified specimen by Culture Laborator y test result [facility] ([facility] ) Source of Specimen: URINE ID Date Data Source [id number] 04/30/2020 04:07:00 PM EST [facility] ([facility] Name Value Range Interpretation Code Description Data Megan rce(s) Supporting Document(s) Urine Culture, Routine Laboratory test result [facility] ([facility] Source of Specimen: URINE Bacteria identified in Urine by Culture Laboratory test result [facility] ([facility] Source of Specimen: URINE Mixed urogenital stephanie 10,000-25,000 colony forming units per m L ID Date Data Source [id number] 04/30/2020 04:07:00 PM EST [facility] ([facility] Name Value Range Interpretation Code Description Data Megan rce(s) Supporting Document(s) Bacteria identified in Unspecified specimen by Aerobe culture Laboratory test result [facility] ([facility] ID Date Data Source [id number] 04/30/2020 04:05:00 PM EST [facility] ([facility] Name Value Range Interpretation Code Description Data Megan rce(s) Supporting Document(s) Comment 1 Laboratory test result ME DENT ([facility] Specific [place] 1.030 1.00-1.03 [facility] ([facility] Appearance of Urine Laboratory test result [facility] ([facility] Color Urine Laboratory test result M EDENT ([facility] PH Urine 6.0 5.0-8.0 [facility] Glucose Urine Laboratory test result [facility] ([facility] Bilirubin.total [Presence] in Urine by Test strip Laboratory michelle t result Above high normal [facility] ([facility] ) Ketones Laboratory test result [facility] ([facility] Blood Urine Laboratory test result M EDENT ([facility] Protein Urine Laboratory test result Above high normal [facility] ([facility] Urobilinogen 0.2 EU/dl 0.2-1.0 [facility] ([facility] Nitrite Laboratory test result [facility] ([facility] Leukocytes Laboratory test result Above high normal [facility] ([facility] ID Date Data Source [id number] 03/08/2020 12:00:00 AM EST [facility] Name Value Range Interpretation Code Description Data Megan rce(s) Supporting Document(s) SARS coronavirus 2 RNA [Presence] in Res piratory specimen by CARY with probe detection [facility] This lab was ordered by Moshe Simpson and reported by [email or web address]. ID Date Data Source [id number] 03/08/2020 12:00:00 AM EST [facility] Name Value Range Interpretation Code Description Data Megan rce(s) Supporting Document(s) Carestart Rapid COVID Antigen Test [facility] This lab was reported by Moshe FRANK [facility]. ID Date Data Source [id number] 02/27/2020 09:23:00 AM EST [facility] ([facility], ) Name Value Range Interpretation Code Description Data Megan rce(s) Supporting Document(s) Surgical pathology study Laboratory test result [facility] ([facility], ) FINAL DIAGNOSIS Stomach, antrum, biopsy: Gastric mucosa with mild chronic inflammation, reparative and reactive changes. No H.pylori is identified. 02/28/2020 - 1050 CLINICAL DIAGNOSIS Hoarseness and dysphagia 02/27/2020 - 1448 GROSS DIAGNOSIS Received in formalin labeled "biopsy antrum" and consists of a fragment of tissue, 0.1 x 0.1 x 0.1 cm. All in one. -OA 02/27/2020 - 144 Signed BASILIO DOWELL MD 02/28/2020 1052 ID Date Data Source [id number] 02/22/2020 10:30:00 AM EST [facility] Name Value Range Interpretation Code Description Data Megan rce(s) Supporting Document(s) SARS coronavirus 2 RNA [facility] This lab was ordered by [facility] and reported by [facility]. ID Date Data Source [id number] 12/12/2019 03:09:00 PM EDT [facility] ([facility] Name Value Range Interpretation Code Description Data Megan rce(s) Supporting Document(s) Calcidiol [Mass/volume] in Serum or Plasma 20.4 ng/mL 30.0- 100.0 Below low normal [facility] ([facility] ) Vitamin D deficiency has been defined by the [place] of [employer] and an Endocrine Society practice guideline as a level of serum 25-OH vitamin D less than 20 ng/mL (1,2). The Endocrine Society went on to further define vitamin D insufficiency as a level between 21 and 29 ng/mL (2). 1. IOM ([place] of [employer]). 2010. Di etary reference intakes for calcium and D. [place]: The National AcademBioStable [employer]. 2. Orestes MF, Nicolas VALDES, Danni lara CAMARILLO, et al. Evaluation, treatment, and prevention of vitamin D deficiency: an Endocrine Society clinical practice guideline. JCEM. 2010; 96(7):1911-30. ID Date Data Source [id number] 12/12/2019 03:09:00 PM EDT [facility] ([facility] Name Value Range Interpretation Code Description Data Megan rce(s) Supporting Document(s) Cholesterol [Mass/volume] in Serum or Plasma 195 mg/dL 100-199 [facility] ([facility] Cholesterol in HDL [Mass/volume] in Serum or Plasma 91 mg/dL [facility] ([facility] Triglyceride [Mass/volume] in Serum or Plasma 49 mg/dL 0-149 [facility] ([facility] Laboratory test finding (navigational concept) 9 mg/dL 5-40 [facility] ([facility] Comment: Laboratory test result [facility] ([facility] Laboratory test finding (navigational concept) 95 mg/dL 0-99 [facility] ([facility] Procedure Social History No Information Vital Signs ID Date Data Source [id number] Name Value Range Interpretation Code Description Data Source(s) Body height 62 [in_i] 62 [in_i] [facility] ([facility] 5'2" Body weight 66.00 [lb_av] 66.00 [lb_av] [facility] ([facility] [place] body weight 110 [lb_av] 110 [lb_av] MED[facility] T ([facility] Body mass index (BMI) [Ratio] 12.1 kg/m2 12.1 k g/m2 [facility] ([facility] Heart rate 109 /min 109 /min [facility] ([facility] Respiratory rate 16 /min 16 /min [facility] ( [facility] Body temperature 97.3 [degF] 97.3 [degF] [facility] ([facility] Systolic blood pressure 118 mm[Hg] 118 mm[Hg] M [facility] ([facility] Diastolic blood pressure 70 mm[Hg] 70 mm[Hg] [facility] ([facility] Systolic blood pressure 116 mm[Hg] 116 mm[Hg] M [facility] ([facility] Heart rate 78 /min 78 /min [facility] ([facility] Diastolic blood pressure 80 mm[Hg] 80 mm[Hg] [facility] ([facility] Respiratory rate 16 /min 16 /min [facility] ( [facility] Body weight 68.00 [lb_av] 68.00 [lb_av] [facility] ([facility] [place] body weight 110 [lb_av] 110 [lb_av] MED[facility] T ([facility] Body height 62 [in_i] 62 [in_i] [facility] ([facility] 5'2" Body temperature 97.2 [degF] 97.2 [degF] [facility] ([facility] Body mass index (BMI) [Ratio] 12.4 kg/m2 12.4 k g/m2 [facility] ([facility] Body height 62 [in_i] 62 [in_i] [facility] ([facility] 5'2" [place] body weight 110 [lb_av] 110 [lb_av] MED[facility] T ([facility] Systolic blood pressure 114 mm[Hg] 114 mm[Hg] M EDENT ([facility] Diastolic blood pressure 78 mm[Hg] 78 mm[Hg] [facility] ([facility] Oxygen saturation in Arterial blood by Pulse oximetry 86 % 86 % [facility] ([facility] Respiratory rate 16 /min 16 /min [facility] ( [facility] Body weight 69.00 [lb_av] 69.00 [lb_av] [facility] ([facility] Body mass index (BMI) [Ratio] 12.6 kg/m2 12.6 k g/m2 [facility] ([facility] Heart rate 88 /min 88 /min [facility] ([facility] Body temperature 97.0 [degF] 97.0 [degF] [facility] ([facility] Body surface area Derived from formula 1.23 m2 1.23 m2 [facility] ([facility]) Body height 62 [in_i] 62 [in_i] [facility] ([facility]) 5'2" Body weight 71.50 [lb_av] 71.50 [lb_av] [facility] ([facility]) Body mass index (BMI) [Ratio] 13.1 kg/m2 13.1 k g/m2 [facility] ([facility]) [place] body weight 110 [lb_av] 110 [lb_av] MED[facility] T ([facility]) Body weight 32.432 kg 32.432 kg [facility] ([facility]) Systolic blood pressure 104 mm[Hg] 104 mm[Hg] M EDENT ([facility] Body temperature 97.2 [degF] 97.2 [degF] [facility] ([facility] Heart rate 68 /min 68 /min [facility] ([facility] Respiratory rate 16 /min 16 /min [facility] ( [facility] Body height 62 [in_i] 62 [in_i] [facility] ([facility] 5'2" Body weight 72.00 [lb_av] 72.00 [lb_av] [facility] ([facility] Body mass index (BMI) [Ratio] 13.2 kg/m2 13.2 k g/m2 [facility] ([facility] Oxygen saturation in Arterial blood by Pulse oximetry 97 % 97 % MED[facility] ([facility] Diastolic blood pressure 72 mm[Hg] 72 mm[Hg] MEDENT ([facility] [place] body weight 110 [lb_av] 110 [lb_av] MEDEN T ([facility] [place] body weight 110 [lb_av] 110 [lb_av] MEDEN T ([facility]) Body mass index (BMI) [Ratio] 13.9 kg/m2 13.9 k g/m2 [facility] ([facility]) Body weight 76.00 [lb_av] 76.00 [lb_av] [facility] ([facility]) Body height 62 [in_i] 62 [in_i] MEDENT ([facility]) 5'2" Body weight 34.474 kg 34.474 kg [facility] ([facility]) Body surface area Derived from formula 1.27 m2 1.27 m2 [facility] ([facility]) Body temperature 97.0 [degF] 97.0 [degF] MED[facility] ([facility] Body height 62 [in_i] 62 [in_i] MEDENT ([facility] 5'2" Oxygen saturation in Arterial blood by Pulse oximetry 98 % 98 % MED[facility] ([facility] Systolic blood pressure 110 mm[Hg] 110 mm[Hg] M EDENT ([facility] Diastolic blood pressure 84 mm[Hg] 84 mm[Hg] MED[facility] ([facility] Heart rate 84 /min 84 /min [facility] ([facility] Respiratory rate 16 /min 16 /min MED[facility] ( [facility] Body weight 76.00 [lb_av] 76.00 [lb_av] MED[facility] ([facility] [place] body weight 110 [lb_av] 110 [lb_av] MEDEN T ([facility] Body mass index (BMI) [Ratio] 13.9 kg/m2 13.9 k g/m2 [facility] ([facility] Respiratory rate 16 /min 16 /min MED[facility] ( [facility] Body weight 75.00 [lb_av] 75.00 [lb_av] MED[facility] ([facility] [place] body weight 110 [lb_av] 110 [lb_av] MEDEN T ([facility] Body mass index (BMI) [Ratio] 13.7 kg/m2 13.7 k g/m2 [facility] ([facility] Oxygen saturation in Arterial blood by Pulse oximetry 96 % 96 % [facility] ([facility] Body height 62 [in_i] 62 [in_i] [facility] 5'2" Body temperature 97.6 [degF] 97.6 [degF] [facility] ([facility] Heart rate 76 /min 76 /min [facility] ([facility] Systolic blood pressure 128 mm[Hg] 128 mm[Hg] M EDENT ([facility] Diastolic blood pressure 86 mm[Hg] 86 mm[Hg] [facility] ([facility] Body mass index (BMI) [Ratio] 13.9 kg/m2 13.9 k g/m2 [facility] ([facility] Systolic blood pressure 128 mm[Hg] 128 mm[Hg] M EDENT ([facility] Diastolic blood pressure 84 mm[Hg] 84 mm[Hg] [facility] ([facility] Oxygen saturation in Arterial blood by Pulse oximetry 95 % 95 % [facility] ([facility] Body temperature 96.5 [degF] 96.5 [degF] [facility] ([facility] Heart rate 87 /min 87 /min [facility] ([facility] Respiratory rate 16 /min 16 /min [facility] ( [facility] Body height 62 [in_i] 62 [in_i] [facility] 5'2" Body weight 76.00 [lb_av] 76.00 [lb_av] [facility] ([facility] [place] body weight 110 [lb_av] 110 [lb_av] MEDEN T ([facility] [place] body weight 110 [lb_av] 110 [lb_av] MEDEN T ([facility] Body mass index (BMI) [Ratio] 13.7 kg/m2 13.7 k g/m2 [facility] ([facility] Oxygen saturation in Arterial blood by Pulse oximetry 96 % 96 % [facility] ([facility] Systolic blood pressure 102 mm[Hg] 102 mm[Hg] M EDENT ([facility] Diastolic blood pressure 72 mm[Hg] 72 mm[Hg] [facility] ([facility] Body temperature 96.5 [degF] 96.5 [degF] [facility] ([facility] Heart rate 75 /min 75 /min [facility] ([facility] Respiratory rate 16 /min 16 /min [facility] ( [facility] Body height 62 [in_i] 62 [in_i] MED[facility] ([facility] 5'2" Body weight 75.00 [lb_av] 75.00 [lb_av] MED[facility] ([facility] Body weight 76.00 [lb_av] 76.00 [lb_av] MEDENT ([facility], ) Body weight 34.474 kg 34.474 kg MED[facility] ([facility]) [place] body weight 110 [lb_av] 110 [lb_av] MEDEN T ([facility]) Body mass index (BMI) [Ratio] 13.9 kg/m2 13.9 k g/m2 [facility] ([facility]) Body height 62 [in_i] 62 [in_i] [facility] ([facility]) 5'2" Body surface area Derived from formula 1.27 m2 1.27 m2 [facility] ([facility]) Body height 62 [in_i] 62 [in_i] [facility] ([facility]) 5'2" Body weight 76.50 [lb_av] 76.50 [lb_av] [facility] ([facility]) Body mass index (BMI) [Ratio] 14.0 kg/m2 14.0 k g/m2 [facility] ([facility]) [place] body weight 110 [lb_av] 110 [lb_av] MEDEN T ([facility]) Body weight 34.700 kg 34.700 kg [facility] ([facility]) Body surface area Derived from formula 1.27 m2 1.27 m2 [facility] ([facility]) [place] body weight 110 [lb_av] 110 [lb_av] MEDEN T ([facility]) Body weight 34.700 kg [facility].700 [facility] Body weight 76.50 [lb_av] 76.50 [lb_av] [facility] ([facility]) Body mass index (BMI) [Ratio] 14.0 kg/m2 14.0 k g/m2 [facility] ([facility]) Body surface area Derived from formula 1.27 m2 1.27 m2 [facility] ([facility]) Systolic blood pressure 120 mm[Hg] 120 mm[Hg] [facility] ([facility]) Diastolic blood pressure 59 mm[Hg] 59 mm[Hg] [facility] ([facility]) Body height 62 [in_i] 62 [in_i] [facility] 5'2" Systolic blood pressure 100 mm[Hg] 100 mm[Hg] [facility] [place] body weight 110 [lb_av] 110 [lb_av] MEDEN T ([facility]) Diastolic blood pressure 62 mm[Hg] 62 mm[Hg] [facility] Body height 62 [in_i] 62 [in_i] [facility] ([facility]) 5'2" Body weight 78.12 [lb_av] 78.12 [lb_av] [facility] ([facility]) Body mass index (BMI) [Ratio] 14.3 kg/m2 14.3 k g/m2 [facility] ([facility], ) Body weight 35.438 kg 35.438 kg [facility] ([facility]) Body surface area Derived from formula 1.28 m2 1.28 m2 [facility] ([facility]) Systolic blood pressure 102 mm[Hg] 102 mm[Hg] M EDENT ([facility] Diastolic blood pressure 76 mm[Hg] 76 mm[Hg] [facility] ([facility] Body temperature 97.0 [degF] 97.0 [degF] [facility] ([facility] Heart rate 82 /min 82 /min [facility] ([facility] Respiratory rate 16 /min 16 /min [facility] ( [facility] Body height 62 [in_i] 62 [in_i] [facility] ([facility] 5'2" Body weight 78.00 [lb_av] 78.00 [lb_av] [facility] ([facility] [place] body weight 110 [lb_av] 110 [lb_av] MEDEN T ([facility] Body mass index (BMI) [Ratio] 14.3 kg/m2 14.3 k g/m2 [facility] ([facility] Oxygen saturation in Arterial blood by Pulse oximetry 95 % 95 % [facility] ([facility] Patient Treatment Plan of Care Planned Activity Planned Date Details Description Data Source (s) Atorvastatin Calcium 20 MG 12/14/2020 01:00:00 AM EDT [facility] ([facility]) Ensure Active High Protein 12/14/2020 01:00:00 AM EDT [facility] ([facility]) Famotidine 40 MG 12/14/2020 01:00:00 AM EDT [facility] ([facility]) Imipramine HCl 50 MG 12/14/2020 01:00:00 AM EDT [facility]) Linzess 145 MCG 12/14/2020 01:00:00 AM EDT [facility])
--- NOTE | 2021-01-07 11:36 | REPVR ---
PROCEDURE INFORMATION: Exam: CT Head Without Contrast Exam date and time: 01/07/2021 11:11 AM Age: 65 years old Clinical indication: Altered mental status/memory loss TECHNIQUE: Imaging protocol: Computed tomography of the head without contrast. Radiation optimization: All CT scans at this facility use at least one of these dose optimization techniques: automated exposure control; mA and/or kV adjustment per patient size (includes targeted exams where dose is matched to clinical indication); or iterative reconstruction. COMPARISON: CT Head without contrast 11/17/2020 10:57 AM FINDINGS: Brain: There is no acute intracranial hemorrhage or mass effect. Moderate diffuse volume loss is within the range of normal for patient age. There are small vessel ischemic changes within the periventricular and subcortical white matter, but the normal fragoso-white matter delineation is maintained. Cerebral ventricles: Prominence of the ventricular system is commensurate with volume loss. Paranasal sinuses: Visualized sinuses are unremarkable. No fluid levels. Mastoid air cells: Visualized mastoid air cells are well aerated. Bones/joints: Unremarkable. No acute fracture. Soft tissues: Unremarkable. IMPRESSION: No acute hemorrhage or edema. Electronically signed by: Kerrie Qiu On 01/07/2021 11:35:44 AM
--- NOTE | 2021-01-07 11:40 | REP ---
INDICATION: Altered Mental Status. COMPARISON: 01/14/2015 the latest prior a two view exam TECHNIQUE: Portable FINDINGS: The technique utilized in obtaining the radiograph has magnified the cardiac silhouette and accentuated the interstitial markings. The cardiomediastinal silhouette is unchanged. The heart is not enlarged. There is lung field hyperexpansion status quo. There is chronic biapical pleuroparenchymal scarring status quo. No acute patchy parenchymal opacities or pleural effusions have developed. There is no significant change in appearance of the osseous structures. IMPRESSION: Stable appearing chronic changes as described above. <Electronically signed by Chau Cohen > 01/07/21 [id number]
[2021-01-07 13:37] LABS: ALBUMIN 3.2 GM/DL (3.2-5.2); ALT/SGPT 148 U/L (12-78); BILIRUBIN,DIRECT 0.1 MG/DL (0.0-0.2); BILIRUBIN,TOTAL 0.4 MG/DL (0.2-1.0); BLOOD UREA NITROGEN 52 MG/DL (7-18); CALCIUM LEVEL 9.2 MG/DL (8.8-10.2); CARBON DIOXIDE LEVEL 41 MEQ/L (21-32); CHLORIDE LEVEL 99 MEQ/L (98-107); CK-MB VALUE MASS 5.6 NG/ML (<3.6); CPK CREATINE PHOSPHOKINASE 191 U/L (26-192); CREATININE FOR GFR 0.92 MG/DL (0.55-1.30); GLOMERULAR FILTRATION RATE > 60.0 (>45); GLUCOSE, FASTING 86 MG/DL (70-100); MB/CK RELATIVE INDEX 2.93 (< OR =4); POTASSIUM SERUM 3.7 MEQ/L (3.5-5.1); SODIUM LEVEL 141 MEQ/L (136-145); TOTAL PROTEIN 6.5 GM/DL (6.4-8.2); TROPONIN I 0.08 NG/ML (< 0.10)
[2021-01-07] MEDS ORDERED: MOM 30ML SUSPENSION UDC PO PRN (16:15)
[2021-01-07] MEDS ORDERED: MAALOX 30 ML SUSP *UDC PO PRN (16:15)
[2021-01-07] MEDS ORDERED: ACETAMINOPHEN TAB 650MG DOSE (2X325MG) PO PRN (16:15)
--- NOTE | 2021-01-07 16:39 | HPEPDOC ---
[facility] Medical History & Physical Date of Admission Jan 07, 2021 Date of Service: Jan 07, 2021 History and Physical CHIEF COMPLAINT: Failure to thrive HISTORY OF PRESENT ILLNESS: 65-year-old female with a past medical history of anorexia nervosa, depression, osteoporosis, that has sustained a significant weight loss in the last several months with worsening of her anorexia symptoms. Patient was brought to the ER by her son. Per his per her son family and PCP have been trying to get the patient to eat has been assessed by public health nursing with plan for a gastrostomy tube to sustain nutrition. Patient was ulngozi mately brought to the ER for significant failure to thrive inability to eat, inability to eat, and frailty to the point of having garbled speech. At this point patient is afebrile normotensive with a pulse of 72 saturating 100% on room air. She does have an elevated lactic acid of 2.3 as well as an elevated BUN. She has elevation of AST ALT and ALP which are consistent with prior levels. Patient is unable to provide significant history as her speech is almost unintelligible however she can answer yes or no questions. She will be admitted to hospitalist service for the treatment of failure to thrive as well as severe protein calorie malnutrition secondary to anorexia nervosa. PAST MEDICAL HISTORY: anorexia nervosa, diagnosed 40 years ago depression osteoporosis PAST SURGICAL HISTORY: patient unable to provide SOCIAL HISTORY: unable to provide social hx FAMILY HISTORY: unable to obtain from patient. ALLERGIES: Please see below. REVIEW OF SYSTEMS: complete 10 point ROS unable to be completed. HOME MEDICATIONS: Please see below. PHYSICAL EXAMINATION: VITAL SIGNS: please see below General: NAD, comfortable HEENT: PERRLA, EOMI, sclerae clear Neck: supple, normal ROM, no JVD Respiratory: lungs CTAB, no wheeze, no rales, no crackles CVS: RRR, normal S1, S2, no murmurs Abdo: soft, no masses, no hepatosplenomegaly, BS+, no rebound tenderness Extremities: no edema, pulses 2+ MSK: no joint deformities, normal ROM Neuro: no focal neuro deficits, moving all 4 extremities, CN2-12 intact. Strength 5/5 in all 4 extremities. No nystagmus. Psych: calm, cooperative, AAO x 3 LABORATORY DATA: See below. IMAGING: CT head wo contrast (01/07/21): No acute hemorrhage or edema. CXR (01/07/21): FINDINGS: The technique utilized in obtaining the radiograph has magnified the cardiac silhouette and accentuated the interstitial markings. The cardiomediastinal silhouette is unchanged. The heart is not enlarged. There is lung field hyperexpansion status quo. There is chronic biapical pleuroparenchymal scarring status quo. No acute patchy parenchymal opacities or pleural effusions have developed. There is no significant change in appearance of the osseous structures. MICROBIOLOGY: Please see below. ASSESSMENT: 65-year-old female with a past medical history of anorexia nervosa, depression, osteoporosis, that has sustained a significant weight loss in the last several months with worsening of her anorexia symptoms. Admitted for failure to thrive and severe protein calorie malnutrition. . PLAN: Anorexia nervosa/severe protein calorie malnutrition/failure to thrive - obtain weight, patient appears cachectic - PFS consult - per her son, family and patient were planning for G tube. They would like full code status. - were advised to come to ER as they though they would be able to get it sooner - order IR consult for PICC - place NGT - start tube feeds (prelim ordered), dietary eval consult placed. - ongoing GOC discussion with family regarding wishes for G tube. - prognosis is guarded. Garbled speech, inability to ambulate - this has been patient's baseline for several weeks - moving all 4 extremities - CT head wo bleed or CVA - check MRI brain non contrast PAD - check bedside dopplers, DP pulses audible with doppler - vascular surgery referral outpatient. DVT ppx: SCDs. TEDs. Dispo: pending clinical improvement. Vital Signs Vital Signs Date Time Temp Pulse Resp B/P (MAP) Pulse Ox O2 Delivery O2 Flow Rate FiO2 01/07/21 14:00 72 16 147/69 (95) 100 01/07/21 11:03 Room Air 01/07/21 10:52 97.6 Laboratory Data Labs 24H Laboratory Tests 2 01/07/21 12:39: Anion Gap 1L, Glomerular Filtration Rate > 60.0, Lactic Acid Level 2.3*H, Calcium Level 9.2, Magnesium Level 2.0, Total Bilirubin 0.4, Direct Bilirubin 0.1, Aspartate Amino Transf (AST/SGOT) 186H, Alanine Aminotransferase (ALT/SGPT) 148H, Alkaline Phosphatase 230H, Ammonia 13, Total Creatine Kinase 191, Creatine Kinase MB 5.6H, Creatine Kinase MB Relative Index 2.93, Troponin I 0.08, Total Protein 6.5, Albumin 3.2, Albumin/Globulin Ratio 1.0L, Thyroid Stimulating Hormone (TSH) 1.340 CBC/BMP Laboratory Tests 01/07/21 12:39 Microbiology Microbiology 01/07/21 Blood Culture, Received Pending 01/07/21 Blood Culture, Received Pending Home Medications Scheduled Atorvastatin Calcium (Atorvastatin Calcium) 20 Mg Tablet, 20 MG PO DAILY Famotidine (Famotidine) 40 Mg Tablet, 40 MG PO QHS Imipramine HCl (Imipramine HCl) 50 Mg Tab, 100 MG PO QHS Linaclotide (Linzess) 145 Mcg Capsule, 145 MCG PO DAILY Allergies Coded Allergies: Penicillins (Verified Allergy, Unknown, 01/07/21) Sulfa (Sulfonamide Antibiotics) (Verified Allergy, Unknown, 01/07/21) amoxicillin (Verified Allergy, Unknown, 01/07/21) clavulanic acid (Verified Allergy, Unknown, 01/07/21) sulfamethoxazole (Verified Allergy, Unknown, 01/07/21) A-FIB/CHADSVASC A-FIB History Current/History of A-Fib/PAF?: No CESAR KELLY MD Jan 07, 2021 16:38
--- OUTSIDE RECORDS SUMMARY | 2021-01-07 16:54 | CCD ---
Author Author [facility] Organization [facility] Address Unknown Phone Unavailable Care Team Providers Care Global Logistics Analyst Name Role Phone Maring, Antonio PA Unavailable [...] Antonio PA Unavailable Unavailable Lashay, Wendy Gerald FEDERAL AID COORDINATOR Unavailable Unavailable Coquille, Wendy Gerald FEDERAL AID COORDINATOR Unavailable Unavailable Lashay, Wendy Gerald FEDERAL AID COORDINATOR Unavailable Unavailable Coquille, Wendy Gerald FEDERAL AID COORDINATOR Unavailable Unavailable Coquille, Wendy Gerald FEDERAL AID COORDINATOR Unavailable Unavailable Lashay, Wendy Gerald FEDERAL AID COORDINATOR Unavailable Unavailable Lashay, Wendy Gerald FEDERAL AID COORDINATOR Unavailable Unavailable Coquille, Wendy Gerald FEDERAL AID COORDINATOR Unavailable Unavailable Lashay, Wendy Gerald FEDERAL AID COORDINATOR Unavailable Unavailable Lashay, Wendy Gerald FEDERAL AID COORDINATOR Unavailable Unavailable Lashay, Wendy Gerald FEDERAL AID COORDINATOR Unavailable Unavailable Coquille, Wendy Gerald FEDERAL AID COORDINATOR Unavailable Unavailable Lashay, Wendy Gerald FEDERAL AID COORDINATOR Unavailable Unavailable Lashay, Wendy Gerald FEDERAL AID COORDINATOR Unavailable Unavailable Oak BrookDat MD Unavailable Unavailable [place]Dat MD Unavailable Unavailable [place]Dat MD Unavailable Unavailable [place] Dat MD Unavailable Unavailable [place] Dat MD Unavailable Unavailable [place]Dat MD Unavailable Unavailable [place]Dat MD Unavailable Unavailable [place]Dat MD Unavailable Unavailable [place] Dat MD Unavailable Unavailable [place]Dat MD Unavailable Unavailable [place]Dat MD Unavailable Unavailable [place], Dat MD Unavailable Unavailable [place]Dat MD Unavailable Unavailable [place], Dat MD Unavailable Unavailable [place], Dat MD Unavailable Unavailable [place]Dat MD Unavailable Unavailable [place]Dat MD Unavailable Unavailable [place]Dat MD Unavailable Unavailable [place], Dat MD Unavailable Unavailable [place], Dat MD Unavailable Unavailable [place], Dat MD Unavailable Unavailable [place], Dat MD Unavailable Unavailable [place], Dat MD Unavailable Unavailable [place], Dat MD Unavailable Unavailable [place], Dat MD Unavailable Unavailable [place], Dat MD Unavailable Unavailable [place], Dat MD Unavailable Unavailable [place], Dat MD Unavailable Unavailable [place], Dat MD Unavailable Unavailable [place], Dat MD Unavailable Unavailable [place], Dat MD Unavailable Unavailable LEACH, G EDWARD [...] Unavailable LEACH, G EDWARD RPA Unavailable Unavailable LEAHC, G EDWARD RPA Unavailable Unavailable LEACH, G [...] Unavailable Al, D Jeffrey PA Unavailable Unavailable Olvin Arevalo Unavailable [phone] Olvin Arevalo Unavailable [phone] Olvin Arevalo Unavailable [phone] Olvin Arevalo Unavailable [phone] Olvin Arevalo Unavailable [phone] Olvin Arevalo Unavailable [phone] Celso Lovelace JR, MD Unavailable Unavailable Celso [...] Unavailable Celso Lovelace JR, MD Unavailable Unavailable Cleso Lovelace JR, MD Unavailable Unavailable Celso Lovelace [...] Unavailable Celso Lovelace JR, MD Unavailable Unavailable BARCLAY, DEN FEDERAL AID COORDINATOR Unavailable Unavailable BARCLAY, DEN FEDERAL AID COORDINATOR Unavailable Unavailable BARCLAY, DEN FEDERAL AID COORDINATOR Unavailable Unavailable BARCLAY, DEN FEDERAL AID COORDINATOR Unavailable Unavailable Re-disclosure Warning The records that [...] is protected by Article 27-F of the [facility] Public Health law. If you continue you may have access to information: Regarding HIV / AIDS; Provided by facilities licensed or operated by the [facility] Office of Mental Health; or Provided by the [facility] Office for People With Developmental Disabilities. If such information is present, then the following [facility] mandated warning applies: This information has been [...] law may result in a fine or assisted sentence or both. A general authorization for the release of medical or other information is NOT sufficient authorization for further disc losure. Allergies and Adverse Reactions Type Description Substance Reaction Status Data Source(s ) Bactrim DS, Cipro, Macrobid Bactrim DS, Cipro, Macrobid Bact rim DS, Cipro, Macrobid active NETSMART ([facility]) Family History Family Member Name Family Member Gender Family Member Status Date o f Status Description Data Source(s) Unknown Unknown Problem [facility] patients mother Encounters Encounter Providers Location Date Indications Data Source(s ) 12/14/2020 01:00:00 AM EDT - 021 09:44:21 AM EDT NETSMART ([facility]) Outpatient Attender: Jeffrey [facility] Office 01:00:00 PM EDT MEDENT ([facility] Manuel clarke PManjit) Outpatient Attender: Jeffrey [facility] Office 09:45:00 AM EDT [facility] Outpatient Attender: Jeffrey CUEVAS [place] [facility] 05/2020 09:30:00 AM EDT MEDENT ([facility] Outpatient Attender: Olvin Cartwrightender: DEN GTZ FEDERAL AID COORDINATOR 10/08/2020 12:34:30 PM EDT - 10/08/2020 02:20:46 PM EDT DocuTap ( [facility]) Outpatient Attender: Antonio CUEVAS 10/01/19 10:55:45 AM EDT - 09/30/2020 11:36:23 AM EDT [facility]ap ([facility] ) Outpatient Attender: Dat Worrell/Nathaly/Mamadou/Reind l 09/01/2020 10:30:00 AM EDT [facility] ([facility] Outpatient Attender: Jeffrey CUEVAS [place] [facility] 10:20:00 AM EDT MEDENT ([facility] Outpatient Attender: SHA LEACH RPA 08/09 09:57:50 AM EDT - 08/09/2020 11:18:08 AM EDT [facility] ([facility] ) Outpatient Attender: Dat Worrell/Nathaly/Mamadou/Reind l 07/02/2020 10:00:00 AM EDT [facility] ([facility] Outpatient Attender: Antwan Silva 05/2020 09:39:18 AM EDT - 06/13/2020 10:16:01 AM EDT [facility] ([facility] ) Outpatient Attender: Jeffrey CUEVAS [place] [facility] 06/2020 10:30:00 AM EST [facility] ([facility] Outpatient Attender: Jeffrey CUEVAS [place] [facility] 02:45:00 PM EST [facility] ([facility] Outpatient Attender: Jeffrey CUEVAS [place] [facility] 10:15:00 AM EST [facility] Outpatient Attender: Jeffrey CUEVAS [place] [facility] 08:15:00 AM EST [facility] Outpatient Attender: Dat Andersen MD Gm/[place]/Mamadou/Reind l 04/02/2020 09:30:00 AM EST [facility] ([facility] Outpatient Attender: Dat Andersen MD G[place]/Mamadou/Reind l 03/20/2020 08:20:00 AM EST [facility] ([facility] Outpatient Attender: Hong Lovelace JR [place]/Mamadou/Rein dl 03/18/2020 08:40:00 AM EST [facility] ([facility] Outpatient Attender: Gerald ORDONEZ Gm/[place]/Mamadou/Jin ndl 02/11/2020 01:30:00 PM EST [facility] ([facility] Outpatient Attender: Jeffrey CUEVAS [place] [facility] 02:45:00 PM EST [facility] ([facility] Outpatient Attender: Jeffrey CUEVAS [place] [facility] 03/2019 02:40:00 PM EDT [facility] ([facility] Immunizations Vaccine Date Status Description Data Source(s) COVID-19 VACCINE Moderna 05/25/2020 12:00:00 AM EDT completed [facility] Vaccine Series Complete: YESThis Data wa s Submitted to [facility] [employer]. COVID-19 VACCINE, MRNA-1273, LNP-S (MODERNA)/PF 05/25/2020 1 2:00:00 AM EDT completed [facility] COVID-19 VACCINE Moderna 04/23/2020 12:00:00 AM EST completed [facility] Vaccine Series Complete: NOThis Data was Submitted to [facility] [employer]. COVID-19 VACCINE, MRNA-1273, LNP-S (MODERNA)/PF 04/23/2020 1 2:00:00 AM EST completed [facility] Medications Medication Brand Name Start Date Product Form Dose Route Admi nistrative Instructions Pharmacy Instructions Status Indications Reaction Description Data Source(s) Ensure Active High Protein Ensure Active High Protein 2020 01:00:00 AM EDT completed NETSMAR T ([facility]) Famotidine 40 MG Famotidine 12/14/2020 01:00:00 AM EDT completed NETSMART ([facility] ) Imipramine HCl 50 MG Imipramine HCl 12/14/2020 01:00:00 AM EDT completed NETSMART ([facility]) Linzess 145 MCG Linzess 12/14/2020 01:00:00 AM EDT completed NETSMART ([facility]) Atorvastatin Calcium 20 MG Atorvastatin Calcium 12/14/2020 01:00:00 A M EDT completed NETSMART ( [facility]) Meclizine Hydrochloride 25 MG Oral Tablet MECLIZINE HCL 11/19/2020 12:00:00 AM EDT tablet 30 TAKE ONE TABLET BY MOUTH MARCELINO RY 8 HOURS TAKE ONE TABLET BY MOUTH EVERY 8 HOURS SOLD: 11/19/2020 [facility] 145 mcg 11/04/2020 12:00:00 AM EDT [...] DAILY DOSE = 2 SOLD: 10/07/2020 [facility] 50 mg 10/05/2020 12:00:00 AM EDT tablet 60 TAKE TWO TABLETS BY MOUTH AT BEDTIME MAXIMUM DAILY DOSE = 2 TAKE TWO TABLETS BY MOUTH AT BEDTIME MAX IMUM DAILY DOSE = 2 SOLD: 12/08/2020 [facility] 50 mg 10/05/2020 12:00:00 AM EDT tablet [...] DAY FOR 7 DAYS SOLD: 09/30/2020 [facility] Famotidine 40 MG Oral Tablet FAMOTIDINE [...] Mupirocin 04/30/2020 12:00:00 AM EST completed MEDENT ([facility] Guaifenesin 200 MG Oral Tablet Guaifenesin 04/30/2020 12:00:00 AM EST ORAL active MEDENT ([facility] NITROFURANTOIN, MACROCRYSTALS 25 MG / Ni trofurantoin, Monohydrate 75 MG Oral Capsule [Macrobid] Macrobid 04/30/2020 12:00:00 AM EST ORAL completed MEDENT ([facility] 100 mg 04/30/2020 12:00:00 [...] 04/06/2020 12:00:00 AM EST ORAL completed MEDENT ([facility] 145 mcg 04/04/2020 12:00:00 AM EST capsule [...] 03/25/2020 12:00:00 AM EST ORAL completed MEDENT ([facility], ) 50 mg 03/09/2020 12:00:00 AM EST tablet 60 TAKE TWO TABLETS BY MOUTH EVERY DAY AT BEDTIME TAKE TWO TABLETS BY MOUTH EVERY DAY AT BEDTIME SOLD: 021 [facility] 50 mg 03/09/2020 12:00:00 AM EST tablet 60 TAKE TWO TABLETS BY MOUTH EVERY DAY AT BEDTIME TAKE TWO TABLETS BY MOUTH EVERY DAY AT BEDTIME SOLD: 020 [facility] 50 mg 03/09/2020 12:00:00 AM EST tablet 60 TAKE TWO TABLETS BY MOUTH EVERY DAY AT BEDTIME TAKE TWO TABLETS BY MOUTH EVERY DAY AT BEDTIME SOLD: [facility] pantoprazole 40 MG Delayed Release Oral Tablet PANTOPRAZOLE SODIUM 03/09/2020 12:00:00 AM EST tablet,delayed release (DR/EC) 30 T SULEMA ONE TABLET BY MOUTH EVERY DAY TAKE ONE TABLET BY MOUTH EVERY DAY SOLD: 03/10/2020 [facility] doxycycline hyclate 100 MG Oral Capsule DOXYCYCLINE HYCLATE 03/08/2020 12:00:00 AM EST capsule 20 TAKE ONE CAPSULE BY MOUTH TW O TIMES A DAY FOR 10 DAYS TAKE ONE CAPSULE BY MOUTH TWO TIMES A DAY FOR 10 DAYS SOLD: 03/08/2020 [facility] LACTOSE-REDUCED FOOD 02/04/2020 12:00:00 AM EST liquid 71 10 DRINK ONE CAN BY MOUTH EVERY DAY DRINK ONE CAN BY MOUTH EVERY DAY SOLD: 02/05/2020 [facility] LACTOSE-REDUCED FOOD 02/04/2020 12:00:00 AM EST liquid 71 10 DRINK ONE CAN BY MOUTH EVERY DAY DRINK ONE CAN BY MOUTH EVERY DAY SOLD: 04/30/2020 [facility] Famotidine 40 MG Oral Tablet FAMOTIDINE 01/28/2020 12:00:00 AM EST tab let 30 TAKE ONE TABLET BY MOUTH EVERY NIGHT AT BEDTIME TAKE ONE TABLET BY MOUTH EVERY NIGHT AT BEDTIME SOLD: 03/04/2020 [facility] Famotidine 40 MG Oral Tablet FAMOTIDINE 01/28/2020 12:00:00 AM EST tab let 30 TAKE ONE TABLET BY MOUTH EVERY NIGHT AT BEDTIME TAKE ONE TABLET BY MOUTH EVERY NIGHT AT BEDTIME SOLD: 04/06/2020 [facility] Famotidine 40 MG Oral Tablet FAMOTIDINE 01/28/2020 12:00:00 AM EST tab let 30 TAKE ONE TABLET BY MOUTH EVERY NIGHT AT BEDTIME TAKE ONE TABLET BY MOUTH EVERY NIGHT AT BEDTIME SOLD: 01/28/2020 [facility] Famotidine 40 MG Oral Tablet Famotidine 01/28/2020 12:00:00 AM EST active [facility] Famotidine 40 MG Oral Tablet FAMOTIDINE 01/28/2020 12:00:00 AM EST tab let 30 TAKE ONE TABLET BY MOUTH EVERY NIGHT AT BEDTIME TAKE ONE TABLET BY MOUTH EVERY NIGHT AT BEDTIME SOLD: 05/05/2020 [facility] Ensure Active High Protein 01/28/2020 12:00:00 AM EST OR AL active [facility] ([facility] Cephalexin 500 MG Oral [...] linaclotide 0.145 MG Oral Capsule [Linzess] Linzess 0 03/2019 12:00:00 AM EDT active MEDENT ( [...] DAY SOLD: 12/12/2019 [facility] Ergocalciferol 74101 UNT Oral Capsule Ergocalciferol 12/12/2019 12:00:00 AM [...] DAILY DOSE = 2 TABLETS SOLD: 11/10/2019 [facility] Insurance Providers Payer name Policy type / Coverage type Policy ID Covered democrat ID Covered democrat's relationship to hughes Policy Hughes Plan Information MEDICARE [id number] SP [id number] Medicaid Medicaid [id number] Self [id number] [facility] Medicare Medicare Part B [id number] Self [id number] MEDICAID M [id number] S [id number] MEDICARE C [id number] S [id number] MEDICAID MEDICARE [id number] SP [id number] A64 [facility] COMMUNITY PLAN MCDO [id number] SP [id number] [facility] COMMUNITY PLAN [facility] [id number] SP [id number] [facility] Medigap Part B [id number] Family Dependent [id number] [facility] Health Maintenance Organization (HMO) [id number] Self [id number] [facility] 304/804 [id number] SP [id number] [facility] Medigap Part B [id number] Family Dependent [id number] [facility] Health Maintenance Organization (HMO) [id number] 97 [id number] Self [id number] [facility] Medigap Part B [id number] Family Dependent [id number] [facility] Health Maintenance Organization (HMO) [id number] Self [id number] [employer] 304/804 [id number] SP [id number] [employer] BCBS B [id number] S [id number] [facility] O [id number] S [id number] UNHC AMERICHOICE XIX [facility] [id number] 18 [id number] [facility]P [id number] 18 [id number] SELF PAY UNAVAILABLE SP UNAVAILA BLE BCBS [place] PPO 302/307 [id number] [employer] BCBS P [id number] S [id number] [employer] BCBS P [id number] S [id number] [place] [id number] SP [id number] V [id number] [place] 305/805 [id number] SP [id number] EMEDNY [id number] SP [id number] Problems, Conditions, and Diagnoses Code Display Name Description Problem Type Effective Dates Data Source(s) R29.6 Repeated falls Repeated falls Problem 12/14/2020 01:00: 00 AM EDT NETSMART ([facility]) R13.10 Dysphagia, unspecified Dysphagia, unspecified Problem 12/14/2020 01:00:00 AM EDT NETSMART ([facility] ) D64.9 Anemia, unspecified Anemia, unspecified Problem 1 01:00:00 AM EDT NETSMART ([facility] ) F32.A Depression, unspecified Depression, unspecified Proble m 12/14/2020 01:00:00 AM EDT NETSMART ([facility] ) F41.9 Anxiety disorder, unspecified Anxiety disorder, unspec ified Problem 12/14/2020 01:00:00 AM EDT NETSMART ([facility] ) M81.0 Age-related osteoporosis without current pathological fracture Age-related osteoporosis without current pathological fracture Problem 01:00:00 AM EDT NETSMART ([facility] ) E55.9 Vitamin D deficiency, unspecified Vitamin D defi ciency, unspecified Problem 12/14/2020 01:00:00 AM EDT NETSMART ([facility]) E78.5 Hyperlipidemia, unspecified Hyperlipidemia, unspecifie d Problem 12/14/2020 01:00:00 AM EDT NETSMART ([facility] ) 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, uns pecified site Other articular cartilage disorders, unspecified site Problem 12/14/2020 01:00:00 AM EDT NETSMART ([facility]) M21.372 Foot drop, left foot Foot drop, left foot Problem 12/14/2020 01:00:00 AM EDT NETSMART ([facility] ) F50.00 Anorexia nervosa, unspecified Anorexia nervosa, unspec ified Problem 12/14/2020 01:00:00 AM EDT NETSMART ([facility] ) 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 Articulatory defect [...] 10 MINUTES 09/01/2020 12:00:00 AM EDT MEDENT ([facility], ) OFFICE OUTPATIENT VISIT 25 MINUTES 08/27/2020 12:00:00 AM EDT [facility] ([facility] OFFICE OUTPATIENT VISIT 15 MINUTES 07/02/2020 12:00:00 AM EDT MEDENT ([facility], ) OFFICE OUTPATIENT VISIT 15 MINUTES 05/14/2020 12:00:00 AM EST MEDENT ([facility] OFFICE OUTPATIENT VISIT 15 MINUTES 04/30/2020 12:00:00 AM EST [facility] OFFICE OUTPATIENT VISIT 15 MINUTES 04/06/2020 12:00:00 AM EST MED[facility] ([facility] OFFICE OUTPATIENT VISIT 25 MINUTES 04/03/2020 12:00:00 AM EST [facility] OFFICE OUTPATIENT VISIT 15 MINUTES 04/02/2020 12:00:00 AM EST MEDENT ([facility]) LARYNGOSCOPY FLEXIBLE FIBEROPTIC DIAGNOSTIC 03/20/2020 12:00:00 AM EST MEDENT ([facility]) OFFICE OUTPATIENT NEW 30 MINUTES 03/20/2020 12:00:00 A M EST MEDENT ([facility]) OFFICE OUTPATIENT VISIT 10 MINUTES 03/18/2020 12:00:00 AM EST MEDENT ([facility]) Endoscopy Upper GI Biopsy 02/27/2020 12:00:00 AM EST MEDENT ([facility]) Results ID Date Data Source [id number] 12/01/2020 01:42:00 PM EDT MED[facility] ([facility] Name Value Range Interpretation Code Description Data Megan rce(s) Supporting Document(s) Hepatitis B virus surface Ag [Presence] in Serum or Pl asma by Immunoassay Laboratory test result MEDENT ([facility] Hepatitis A virus IgM Ab [Presence] in Serum or Plasma by Immunoassay Laboratory test result [facility] Hepatitis C virus Ab Signal/Cutoff in Serum or Plasma by Immunoassay Laboratory test result 0.0-0.9 MED[facility] ([facility] <content>Negative: < 0.8</content><b r/><content>Indeterminate: 0.8 - 0.9</content>
<content>Positive: > 0.9</content>
<content>The CDC recommends that a positive HCV antibody result</content>
<content>be followed up with a HCV Nucleic Acid Amplification</content>
<content>test (134928).</content>
<content></content> Hep B Core Ab, IgM Laboratory test result MEDENT ([facility] ID Date Data Source [id number] 12/01/2020 01:42:00 PM EDT MED[facility] ([facility] Name Value Range Interpretation Code Description Data Megan rce(s) Supporting Document(s) Gamma glutamyl transferase [Enzymatic activity/volume] in Serum or Plasma 28 IU/L 0-60 [facility] Nuclear Ab [Titer] in Serum by Immunofluorescence Laboratory test res ult MEDENT ([facility] <content>Negative <1:80</content>
<content>Borderline 1:80</content>
<content>Positive >1:80</content>
<content>ICAP nomenclature: AC-0</content>
<content>For more information about Hep-2 cell patterns use</content>
<content>ANApatterns.org, the official website for the International</content>
<content>Consensus on Antinuclear Antibody (CARRIE) Patterns (ICAP).</content>
<content></content> Mitochondrial (M2) Antibody Laboratory test result 0.0-20.0 MEDENT ([facility] Negative 0.0 - 20.0 Equivocal 20.1 - 24.9 Positive >24.9 Mitochondrial (M2) Antibodies are found in 90-96% of patients with primary biliary cirrhosis. Ceruloplasmin [Mass/volume] in Serum or Plasma 27.6 mg/dL 19.0-39.0 MEDENT ([facility] Ferritin [Mass/volume] in Serum or Plasma 114 ng/mL 15-150 MEDENT ([facility] ID Date Data Source [id number] 12/01/2020 01:42:00 PM EDT [facility] ([facility] Name Value Range Interpretation Code Description Data Megan rce(s) Supporting Document(s) Albumin [Mass/volume] in Serum or Plasma 4.4 g/dL 3.8-4.8 [facility] ([facility] Protein [Mass/volume] in Serum or Plasma 6.9 g/dL 6.0-8.5 MEDENT ([facility] Bilirubin.conjugated [Mass/volume] in Serum or Plasma 0.11 mg/dL 0.00 -0.40 MED[facility] ([facility] Bilirubin.total [Mass/volume] in Serum or Plasma 0.3 mg/dL 0.0-1.2 MED[facility] ([facility] Alkaline phosphatase [Enzymatic activity/volume] [...] 79 IU/L 0-40 Above high normal MED[facility] ([facility] ID Date Data Source [id number] 11/10/2020 10:29:00 AM EDT [facility] ([facility] Name Value Range Interpretation Code Description Data Megan rce(s) Supporting Document(s) BUN 18 mg/dL 8-23 [facility] ([facility] Glu 108 mg/dL 70-110 [facility] BUN/Creatinine Ratio 22.2 CALC [facility] Creat 0.8 mg/dL 0.5-1.0 [facility] ([facility] Na 140 mmol/L 136-145 MED[facility] ([facility] Co2 27.7 mmol/L 22.0-29.0 [facility] ([facility] K 3.6 mmol/L 3.5-5.1 [facility] ([facility] CL 97.5 mmol/L 98.0-107.0 Below low normal [facility] ([facility] TP 7.3 g/dL 6.6-8.7 [facility] ([facility] CA 10.3 mg/dL 8.6-10.2 Above high normal [facility] ([facility] Alb 4.7 g/dL 3.4-4.8 [facility] ([facility] Alp 101.8 U/L 35-129 [facility] Globulin 2.7 CALC [facility] ([facility] A/G Ratio 1.7 CALC [facility] ([facility] Alt (SGPT) 40 U/L 0-41 [facility] ([facility] Ast (Sgot) 66 U/L 0-40 Above high normal [facility] ([facility] Osmolality-Calculated 281.5 CALC MED E[facility] ([facility] Tbili 0.36 mg/dL 0.0-1.2 [facility] ([facility] Anion Gap 18 mmol/L [facility] ([facility] eGFR 88 # [facility] ( [facility] CKD-EPI eGFR Non-Afr. Bahraini 76 # MEDENT ([facility] CKD-EPI ID Date Data Source [id number] 08/27/2020 11:14:00 AM EDT MED[facility] ([facility] Name Value Range Interpretation [...] HCT IS 5% LESS SOURCE FOR DATA: [employer] 1800 OPERATION MANUAL( AUTOMATED BLOOD COUNTS AND [...] Chol 303 mg/dL 0-200 Above high normal [facility] NORMAL RANGES Age WBC [...] HCT IS 5% LESS SOURCE FOR DATA: [employer] 1800 OPERATION MANUAL( AUTOMATED BLOOD COUNTS AND [...] HCT IS 5% LESS SOURCE FOR DATA: [employer] 1800 OPERATION MANUAL( AUTOMATED BLOOD COUNTS AND [...] HCT IS 5% LESS SOURCE FOR DATA: [employer] 1800 OPERATION MANUAL( AUTOMATED BLOOD COUNTS AND [...] 2-19 YEARS EXCLUSIVE. Cho/HDL Ratio 2.9 CALC [employer] ([facility] NORMAL RANGES Age WBC RBC [...] HCT IS 5% LESS SOURCE FOR DATA: Brazzlebox DYN 1800 OPERATION MANUAL( AUTOMATED BLOOD COUNTS [...] 2-19 YEARS EXCLUSIVE. ID Date Data Source [id number] 08/27/2020 11:14:00 AM EDT CL ([facility] Name Value Range Interpretation Code Description Data Megan rce(s) Supporting Document(s) BUN 18 mg/dL 8-23 MED[facility] ([facility] NORMAL RANGES Age [...] HCT IS 5% LESS SOURCE FOR DATA: C-Vibes 1800 OPERATION MANUAL( AUTOMATED BLOOD COUNTS AND [...] YEARS EXCLUSIVE. Creat 0.9 mg/dL 0.5-1.0 [facility] ([facility] NORMAL RANGES [...] HCT IS 5% LESS SOURCE FOR DATA: C-Vibes 1800 OPERATION MANUAL( AUTOMATED BLOOD COUNTS AND [...] Glu 111 mg/dL 70-110 Above high normal [facility] ([facility] [...] HCT IS 5% LESS SOURCE FOR DATA: C-Vibes 1800 OPERATION MANUAL( AUTOMATED BLOOD COUNTS AND [...] HCT IS 5% LESS SOURCE FOR DATA: C-Vibes 1800 OPERATION MANUAL( AUTOMATED BLOOD COUNTS AND [...] 2-19 YEARS EXCLUSIVE. BUN/Creatinine Ratio 20.9 CALC [facility] ([facility] NORMAL RANGES Age WBC RBC [...] HCT IS 5% LESS SOURCE FOR DATA: C-Vibes 1800 OPERATION MANUAL( AUTOMATED BLOOD COUNTS AND [...] 2-19 YEARS EXCLUSIVE. Na 137 mmol/L 136-145 [facility] [...] HCT IS 5% LESS SOURCE FOR DATA: C-Vibes 1800 OPERATION MANUAL( AUTOMATED BLOOD COUNTS AND [...] HCT IS 5% LESS SOURCE FOR DATA: C-Vibes 1800 OPERATION MANUAL( AUTOMATED BLOOD COUNTS AND [...] 2-19 YEARS EXCLUSIVE. Co2 25.9 mmol/L 22.0-29.0 [facility] ([facility] NORMAL RANGES Age WBC RBC [...] HCT IS 5% LESS SOURCE FOR DATA: C-Vibes 1800 OPERATION MANUAL( AUTOMATED BLOOD COUNTS AND [...] 2-19 YEARS EXCLUSIVE. CA 9.9 mg/dL 8.6-10.2 [facility] ([facility] [...] HCT IS 5% LESS SOURCE FOR DATA: C-Vibes 1800 OPERATION MANUAL( AUTOMATED BLOOD COUNTS AND [...] HCT IS 5% LESS SOURCE FOR DATA: C-Vibes 1800 OPERATION MANUAL( AUTOMATED BLOOD COUNTS AND [...] 2-19 YEARS EXCLUSIVE. TP 6.9 g/dL 6.6-8.7 [facility] ([facility] NORMAL [...] HCT IS 5% LESS SOURCE FOR DATA: C-Vibes 1800 OPERATION MANUAL( AUTOMATED BLOOD COUNTS AND [...] 2-19 YEARS EXCLUSIVE. A/G Ratio 1.8 CALC [facility] ([facility] [...] HCT IS 5% LESS SOURCE FOR DATA: C-Vibes 1800 OPERATION MANUAL( AUTOMATED BLOOD COUNTS AND [...] HCT IS 5% LESS SOURCE FOR DATA: C-Vibes 1800 OPERATION MANUAL( AUTOMATED BLOOD COUNTS AND [...] 2-19 YEARS EXCLUSIVE. Tbili 0.13 mg/dL 0.0-1.2 [facility] ([facility] NORMAL RANGES Age WBC RBC [...] HCT IS 5% LESS SOURCE FOR DATA: C-Vibes 1800 OPERATION MANUAL( AUTOMATED BLOOD COUNTS AND [...] HCT IS 5% LESS SOURCE FOR DATA: C-Vibes 1800 OPERATION MANUAL( AUTOMATED BLOOD COUNTS AND [...] HCT IS 5% LESS SOURCE FOR DATA: Brazzle[employer] DYN 1800 OPERATION MANUAL( AUTOMATED BLOOD COUNTS [...] HCT IS 5% LESS SOURCE FOR DATA: C-Vibes 1800 OPERATION MANUAL( AUTOMATED BLOOD COUNTS AND [...] HCT IS 5% LESS SOURCE FOR DATA: C-Vibes 1800 OPERATION MANUAL( AUTOMATED BLOOD COUNTS AND [...] HCT IS 5% LESS SOURCE FOR DATA: [employer]zzle[employer] DYN 1800 OPERATION MANUAL( AUTOMATED BLOOD COUNTS [...] INDIVIDUALA AGED 2-19 YEARS EXCLUSIVE. eGFR Non-Afr. [place]raini 66 # [facility] ([facility] [...] HCT IS 5% LESS SOURCE FOR DATA: C-Vibes 1800 OPERATION MANUAL( AUTOMATED BLOOD COUNTS AND [...] 2-19 YEARS EXCLUSIVE. ID Date Data Source [id number] 08/27/2020 11:14:00 AM EDT [facility] ([facility] Name Value Range Interpretation Code Description Data Megan rce(s) Supporting Document(s) WBC 4.7 10E3/uL 4.1-10.9 [facility] ([facility] NORMAL RANGES Age WBC RBC [...] HCT IS 5% LESS SOURCE FOR DATA: C-Vibes 1800 OPERATION MANUAL( AUTOMATED BLOOD COUNTS AND [...] RBC 4.08 10E6/uL 4.20-6.30 Below low normal [facility] ([facility] NORMAL RANGES Age [...] HCT IS 5% LESS SOURCE FOR DATA: C-Vibes 1800 OPERATION MANUAL( AUTOMATED BLOOD COUNTS AND [...] HCT IS 5% LESS SOURCE FOR DATA: C-Vibes 1800 OPERATION MANUAL( AUTOMATED BLOOD COUNTS AND [...] 2-19 YEARS EXCLUSIVE. HGB 12.1 g/dL 12.0-18.0 [facility] ([facility] [...] HCT IS 5% LESS SOURCE FOR DATA: C-Vibes 1800 OPERATION MANUAL( AUTOMATED BLOOD COUNTS AND [...] 2-19 YEARS EXCLUSIVE. MCV 92.9 fL 80.0-97.0 [facility] ([facility] NORMAL [...] HCT IS 5% LESS SOURCE FOR DATA: C-Vibes 1800 OPERATION MANUAL( AUTOMATED BLOOD COUNTS AND [...] HCT IS 5% LESS SOURCE FOR DATA: C-Vibes 1800 OPERATION MANUAL( AUTOMATED BLOOD COUNTS AND [...] 2-19 YEARS EXCLUSIVE. MCH 29.7 pg 26.0-32.0 [facility] ([facility] NORMAL [...] 2-19 YEARS EXCLUSIVE. Lym% 19.9 % 10.0-58.5 [facility] ([facility] [...] HCT IS 5% LESS SOURCE FOR DATA: C-Vibes 1800 OPERATION MANUAL( AUTOMATED BLOOD COUNTS AND [...] HCT IS 5% LESS SOURCE FOR DATA: C-Vibes 1800 OPERATION MANUAL( AUTOMATED BLOOD COUNTS AND [...] 2-19 YEARS EXCLUSIVE. PLT 377 10E3/uL 140-440 [employer] ([facility] NORMAL RANGES Age WBC RBC [...] HCT IS 5% LESS SOURCE FOR DATA: [employer]zzle[employer] DYN 1800 OPERATION MANUAL( AUTOMATED BLOOD COUNTS [...] 2-19 YEARS EXCLUSIVE. Lym# 0.9 10E3/uL 0.6-4.1 [facility] ([facility] NORMAL RANGES Age WBC RBC [...] HCT IS 5% LESS SOURCE FOR DATA: C-Vibes 1800 OPERATION MANUAL( AUTOMATED BLOOD COUNTS AND [...] YEARS EXCLUSIVE. Neut% 69.4 % 37.0-92.0 [facility] ([facility] NORMAL RANGES Age WBC RBC [...] HCT IS 5% LESS SOURCE FOR DATA: C-Vibes 1800 OPERATION MANUAL( AUTOMATED BLOOD COUNTS AND [...] 2-19 YEARS EXCLUSIVE. MXD% 10.7 % 0.1-24.0 CL ([facility] NORMAL RANGES [...] HCT IS 5% LESS SOURCE FOR DATA: C-Vibes 1800 OPERATION MANUAL( AUTOMATED BLOOD COUNTS AND [...] 2-19 YEARS EXCLUSIVE. MPV 9.4 fL 9.0-13.0 [facility] ([facility] [...] HCT IS 5% LESS SOURCE FOR DATA: C-Vibes 1800 OPERATION MANUAL( AUTOMATED BLOOD COUNTS AND [...] 2-19 YEARS EXCLUSIVE. Neut# 3.3 % 2.0-7.8 CL ([facility] NORMAL RANGES [...] HCT IS 5% LESS SOURCE FOR DATA: C-Vibes 1800 OPERATION MANUAL( AUTOMATED BLOOD COUNTS AND [...] 2-19 YEARS EXCLUSIVE. MXD# 0.5 10E3/uL 0.0-1.8 [facility] ([facility] NORMAL RANGES Age WBC RBC [...] HCT IS 5% LESS SOURCE FOR DATA: C-Vibes 1800 OPERATION MANUAL( AUTOMATED BLOOD COUNTS AND [...] 2-19 YEARS EXCLUSIVE. ID Date Data Source [id number] 08/27/2020 11:10:00 AM EDT [facility] ([facility] Name Value Range Interpretation Code Description Data Megan rce(s) Supporting Document(s) Thyrotropin [Units/volume] in Serum or Plasma 1.796 ulU/mL 0.60-4.8 [facility] ([facility] ID Date Data Source [id number] 05/14/2020 01:13:00 PM EST [facility] ([facility] Name Value Range Interpretation Code Description Data Megan rce(s) Supporting Document(s) Urine Culture, Routine Laboratory test result [facility] ([facility] SRC:URINE Bacteria identified in Urine by Culture Laboratory test result [facility] ([facility] SRC:URINE ID Date Data Source [id number] 05/14/2020 11:36:00 AM EST [facility] ([facility] Name Value Range Interpretation Code Description Data Megan rce(s) Supporting Document(s) Color Urine Laboratory test result M EDENT ([facility] Appearance of Urine Laboratory test result [facility] ([facility] PH Urine 6.0 5.0-8.0 [facility] ([facility] Specific [place] 1.030 1.00-1.03 [facility] ([facility] Glucose Urine Laboratory test result [facility] ([facility] Bilirubin.total [Presence] in Urine by Test strip Laboratory michelle t result Above high normal [facility] ([facility] ) Ketones Laboratory test result [facility] ([facility] Blood Urine Laboratory test result M EDENT ([facility] Protein Urine Laboratory test result [facility] ([facility] Urobilinogen 0.2 EU/dl 0.2-1.0 [facility] ([facility] Nitrite Laboratory test result [facility] ([facility] Leukocytes Laboratory test result ME DENT ([facility] ID Date Data Source [id number] 04/30/2020 04:07:00 PM EST [facility] ([facility] Name Value Range Interpretation Code Description Data Megan rce(s) Supporting Document(s) Bacteria identified in Unspecified specimen by Aerobe culture Laboratory test result [facility] ([facility] Source of Specimen: URINE Bacteria identified in Unspecified specimen by Culture Laborator y test result [facility] ([facility] ) Source of Specimen: URINE ID Date Data Source [id number] 04/30/2020 04:07:00 PM EST [facility] ([facility] Name Value Range Interpretation Code Description Data Megan rce(s) Supporting Document(s) Urine Culture, Routine Laboratory test result [facility] ([facility] Source of Specimen: URINE Bacteria identified in Urine by Culture Laboratory test result [facility] ([facility] Source of Specimen: URINE Mixed urogenital stephanie 10,000-25,000 colony forming units per m L ID Date Data Source [id number] 04/30/2020 04:07:00 PM EST [facility] ([facility] Name Value Range Interpretation Code Description Data Megan rce(s) Supporting Document(s) Bacteria identified in Unspecified specimen by Aerobe culture Laboratory test result [facility] ([facility] ID Date Data Source [id number] 04/30/2020 04:05:00 PM EST [facility] ([facility] Name Value Range Interpretation Code Description Data Megan e(s) Supporting Document(s) Comment 1 Laboratory test result ME DENT ([facility] Specific [place] 1.030 1.00-1.03 [facility] ([facility] Appearance of Urine Laboratory test result [facility] ([facility] Color Urine Laboratory test result M EDENT ([facility] PH Urine 6.0 5.0-8.0 [facility] ([facility] Glucose Urine Laboratory test result [facility] ([facility] Bilirubin.total [Presence] in Urine by Test strip Laboratory michelle t result Above high normal [facility] ([facility] ) Ketones Laboratory test result [facility] ([facility] Blood Urine Laboratory test result M EDENT ([facility] Protein Urine Laboratory test result Above high normal [facility] ([facility] Urobilinogen 0.2 EU/dl 0.2-1.0 [facility] ([facility] Nitrite Laboratory test result [facility] ([facility] Leukocytes Laboratory test result Above high normal [facility] ([facility] ID Date Data Source [id number] 03/08/2020 12:00:00 AM EST [facility] Name Value Range Interpretation Code Description Data Megan rce(s) Supporting Document(s) SARS coronavirus 2 RNA [Presence] in Res piratory specimen by CARY with probe detection [facility] This lab was ordered by Moshe Simpson and reported by [facility]. ID Date Data Source [id number] 03/08/2020 12:00:00 AM EST [facility] Name Value Range Interpretation Code Description Data Megan rce(s) Supporting Document(s) Carestart Rapid COVID Antigen Test [facility] This lab was reported by Moshe FRANK Conrad cody. ID Date Data Source [id number] 02/27/2020 09:23:00 AM EST [facility] ([facility], ) Name Value Range Interpretation Code Description Data Megan rce(s) Supporting Document(s) Surgical pathology study Laboratory test result MED[facility] ([facility], ) FINAL DIAGNOSIS Stomach, antrum, biopsy: Gastric mucosa with mild chronic inflammation, reparative and reactive changes. No H.pylori is identified. 02/28/2020 - 1050 CLINICAL DIAGNOSIS Hoarseness and dysphagia 02/27/2020 - 144 GROSS DIAGNOSIS Received in formalin labeled "biopsy antrum" and consists of a fragment of tissue, 0.1 x 0.1 x 0.1 cm. All in one. -OA 02/27/2020 - 144 Signed BASILIO DOWELL MD 02/28/2020 1052 ID Date Data Source [id number] 02/22/2020 10:30:00 AM EST [facility] Name Value Range Interpretation Code Description Data Megan rce(s) Supporting Document(s) SARS coronavirus 2 RNA [facility] This lab was ordered by [facility] and reported by [facility]. ID Date Data Source [id number] 12/12/2019 03:09:00 PM EDT [facility] ([facility] Name Value Range Interpretation Code Description Data Megan rce(s) Supporting Document(s) Calcidiol [Mass/volume] in Serum or Plasma 20.4 ng/mL 30.0- 100.0 Below low normal [facility] ([facility] ) Vitamin D deficiency has been defined by the [place] of Medicine and an Endocrine Society practice guideline as a level of serum 25-OH vitamin D less than 20 ng/mL (1,2). The Endocrine Society went on to further define vitamin D insufficiency as a level between 21 and 29 ng/mL (2). 1. IOM ([place] of Medicine). 2010. Di etary reference intakes for calcium and D. [place]: The National Academies Press. 2. Orestes AGUAYO, Nicolas VALDES, Danni lara CAMARILLO, et al. Evaluation, treatment, and prevention of vitamin D deficiency: an Endocrine Society clinical practice guideline. JCEM. 2010; 96(7):1911-30. ID Date Data Source [id number] 12/12/2019 03:09:00 PM EDT [facility] ([facility] Name Value Range Interpretation Code Description Data Megan rce(s) Supporting Document(s) Cholesterol [Mass/volume] in Serum or Plasma 195 mg/dL 100-199 [facility] ([facility] Cholesterol in HDL [Mass/volume] in Serum or Plasma 91 mg/dL [facility] ([facility] Triglyceride [Mass/volume] in Serum or Plasma 49 mg/dL 0-149 [facility] ([facility] Laboratory test finding (navigational concept) 9 mg/dL 5-40 [facility] ([facility] Comment: Laboratory test result [facility] ([facility] Laboratory test finding (navigational concept) 95 mg/dL 0-99 [facility] ([facility] Procedure Social History No Information Vital Signs ID Date Data Source [id number] Name Value Range Interpretation Code Description Data Source(s) [place] body weight 110 [lb_av] 110 [lb_av] [facility] T ([facility] Heart rate 109 /min 109 /min [facility] ([facility] Respiratory rate 16 /min 16 /min [facility] ( [facility] Body height 62 [in_i] 62 [in_i] [facility] ([facility] 5'2" Body weight 66.00 [lb_av] 66.00 [lb_av] [facility] ([facility] Body mass index (BMI) [Ratio] 12.1 kg/m2 12.1 k g/m2 [facility] ([facility] Body temperature 97.3 [degF] 97.3 [degF] [facility] ([facility] Systolic blood pressure 118 mm[Hg] 118 mm[Hg] M EDENT ([facility] Diastolic blood pressure 70 mm[Hg] 70 mm[Hg] [facility] ([facility] Systolic blood pressure 116 mm[Hg] 116 mm[Hg] M EDENT ([facility] Respiratory rate 16 /min 16 /min [facility] ( [facility] Body weight 68.00 [lb_av] 68.00 [lb_av] [facility] ([facility] Heart rate 78 /min 78 /min [facility] ([facility] [place] body weight 110 [lb_av] 110 [lb_av] MED[facility] T ([facility] Diastolic blood pressure 80 mm[Hg] 80 mm[Hg] [facility] ([facility] Body height 62 [in_i] 62 [in_i] [facility] ([facility] 5'2" Body temperature 97.2 [degF] 97.2 [degF] [facility] ([facility] Body mass index (BMI) [Ratio] 12.4 kg/m2 12.4 k g/m2 [facility] ([facility] Body height 62 [in_i] 62 [in_i] [facility] ([facility] 5'2" [place] body weight 110 [lb_av] 110 [lb_av] MED[facility] T ([facility] Systolic blood pressure 114 mm[Hg] 114 mm[Hg] M EDENT ([facility] Diastolic blood pressure 78 mm[Hg] 78 mm[Hg] [facility] ([facility] Oxygen saturation in Arterial blood by Pulse oximetry 86 % 86 % [facility] ([facility] Respiratory rate 16 /min 16 /min [facility] ( [facility] Body weight 69.00 [lb_av] 69.00 [lb_av] [facility] ([facility] Body mass index (BMI) [Ratio] 12.6 kg/m2 12.6 k g/m2 [facility] ([facility] Heart rate 88 /min 88 /min [facility] ([facility] Body temperature 97.0 [degF] 97.0 [degF] [facility] ([facility] Body surface area Derived from formula 1.23 m2 1.23 m2 [facility] ([facility]) Body height 62 [in_i] 62 [in_i] [facility] ([facility]) 5'2" Body weight 71.50 [lb_av] 71.50 [lb_av] [facility] ([facility]) Body mass index (BMI) [Ratio] 13.1 kg/m2 13.1 k g[facility] [place] body weight 110 [lb_av] 110 [lb_av] MEDEN T ([facility]) Body weight 32.432 kg 32.432 kg [facility] Systolic blood pressure 104 mm[Hg] 104 mm[Hg] M EDENT ([facility] Body temperature 97.2 [degF] 97.2 [degF] [facility] ([facility] Heart rate 68 /min 68 /min [facility] ([facility] Respiratory rate 16 /min 16 /min [facility] ( [facility] Body height 62 [in_i] 62 [in_i] [facility] ([facility] 5'2" Body weight 72.00 [lb_av] 72.00 [lb_av] [facility] ([facility] Body mass index (BMI) [Ratio] 13.2 kg/m2 13.2 k g/m2 [facility] ([facility] Oxygen saturation in Arterial blood by Pulse oximetry 97 % 97 % [facility] ([facility] Diastolic blood pressure 72 mm[Hg] 72 mm[Hg] [facility] ([facility] [place] body weight 110 [lb_av] 110 [lb_av] MEDEN T ([facility] Body weight 76.00 [lb_av] 76.00 [lb_av] [facility] ([facility]) [place] body weight 110 [lb_av] 110 [lb_av] [facility] T ([facility]) Body mass index (BMI) [Ratio] 13.9 kg/m2 13.9 k g/m2 [facility] ([facility]) Body height 62 [in_i] 62 [in_i] [facility] ([facility]) 5'2" Body weight 34.474 kg 34.474 kg [facility] ([facility]) Body surface area Derived from formula 1.27 m2 1.27 m2 [facility] ([facility]) Body temperature 97.0 [degF] 97.0 [degF] [facility] ([facility] Body height 62 [in_i] 62 [in_i] [facility] ([facility] 5'2" Oxygen saturation in Arterial blood by Pulse oximetry 98 % 98 % [facility] Systolic blood pressure 110 mm[Hg] 110 mm[Hg] M EDENT ([facility] Diastolic blood pressure 84 mm[Hg] 84 mm[Hg] [facility] ([facility] Heart rate 84 /min 84 /min [facility] ([facility] Respiratory rate 16 /min 16 /min [facility] ( [facility] Body weight 76.00 [lb_av] 76.00 [lb_av] [facility] ([facility] [place] body weight 110 [lb_av] 110 [lb_av] MED[facility] T ([facility] Body mass index (BMI) [Ratio] 13.9 kg/m2 13.9 k g/m2 [facility] ([facility] Respiratory rate 16 /min 16 /min [facility] ( [facility] Body weight 75.00 [lb_av] 75.00 [lb_av] [facility] ([facility] [place] body weight 110 [lb_av] 110 [lb_av] MED[facility] T ([facility] Body mass index (BMI) [Ratio] 13.7 kg/m2 13.7 k g/m2 [facility] ([facility] Oxygen saturation in Arterial blood by Pulse oximetry 96 % 96 % [facility] ([facility] Body height 62 [in_i] 62 [in_i] [facility] ([facility] 5'2" Body temperature 97.6 [...] mm[Hg] M EDENT ([facility] Oxygen saturation in Arterial blood by Pulse oximetry 95 % 95 % [facility] ([facility] Diastolic blood pressure 84 mm[Hg] 84 mm[Hg] [facility] ([facility] Body temperature 96.5 [degF] 96.5 [degF] [facility] ([facility] Heart rate 87 /min 87 /min [facility] ([facility] Respiratory rate 16 /min 16 /min [facility] ( [facility] Body height 62 [in_i] 62 [in_i] [facility] ([facility] 5'2" Body weight 76.00 [lb_av] 76.00 [lb_av] [facility] ([facility] [place] body weight 110 [lb_av] 110 [lb_av] MED[facility] T ([facility] Systolic blood pressure 102 mm[Hg] 102 mm[Hg] M EDENT ([facility] [place] body weight 110 [lb_av] 110 [lb_av] MEDEN T ([facility] Body mass index (BMI) [Ratio] 13.7 kg/m2 13.7 k g/m2 [facility] ([facility] Oxygen saturation in Arterial blood by Pulse oximetry 96 % 96 % [facility] ([facility] Diastolic blood pressure 72 mm[Hg] 72 mm[Hg] [facility] ([facility] Body temperature 96.5 [degF] 96.5 [degF] [facility] ([facility] Heart rate 75 /min 75 /min [facility] ([facility] Respiratory rate 16 /min 16 /min [facility] ( [facility] Body height 62 [in_i] 62 [in_i] [facility] ([facility] 5'2" Body weight 75.00 [lb_av] 75.00 [lb_av] [facility] ([facility] Body mass index (BMI) [Ratio] 13.9 kg/m2 13.9 k g/m2 [facility] ([facility], ) Body weight 76.00 [lb_av] 76.00 [lb_av] [facility] ([facility]) [place] body weight 110 [lb_av] 110 [lb_av] MEDEN T ([facility]) Body weight 34.474 kg 34.474 kg [facility] ([facility]) Body height 62 [in_i] 62 [in_i] [facility] ([facility]) 5'2" Body surface area Derived from formula 1.27 m2 1.27 m2 [facility] ([facility]) Body height 62 [in_i] 62 [in_i] [facility] ([facility]) 5'2" Body weight 76.50 [lb_av] 76.50 [lb_av] [facility] ([facility]) Body mass index (BMI) [Ratio] 14.0 kg/m2 14.0 k g/m2 [facility] ([facility]) [place] body weight 110 [lb_av] 110 [lb_av] MEDEN T ([facility]) Body weight 34.700 kg 34.700 kg [facility] Body surface area Derived from formula 1.27 m2 1.27 m2 [facility] ([facility]) Body weight 76.50 [lb_av] 76.50 [lb_av] [facility] ([facility]) Systolic blood pressure 120 mm[Hg] 120 mm[Hg] M EDENT ([facility]) Diastolic blood pressure 59 mm[Hg] 59 mm[Hg] [facility] Body height 62 [in_i] 62 [in_i] [facility] ([facility]) 5'2" [place] body weight 110 [lb_av] 110 [lb_av] MEDEN T ([facility]) Body weight 34.700 kg 34.700 kg [facility] ([facility]) Body mass index (BMI) [Ratio] 14.0 kg/m2 14.0 k g/m2 [facility] ([facility]) Body surface area Derived from formula 1.27 m2 1.27 m2 [facility] ([facility]) Systolic blood pressure 100 mm[Hg] 100 mm[Hg] M EDENT ([facility]) [place] body weight 110 [lb_av] 110 [lb_av] MEDEN T ([facility]) Diastolic blood pressure 62 mm[Hg] 62 mm[Hg] [facility] Body height 62 [in_i] 62 [in_i] [facility] ([facility]) 5'2" Body weight 78.12 [lb_av] 78.12 [lb_av] [facility] ([facility]) Body mass index (BMI) [Ratio] 14.3 kg/m2 14.3 k g/m2 [facility] ([facility]) Body weight 35.438 kg 35.438 kg [facility] ([facility]) Body surface area Derived from formula 1.28 m2 1.28 m2 [facility] ([facility]) Systolic blood pressure 102 mm[Hg] 102 mm[Hg] M [facility] ([facility] Diastolic blood pressure 76 mm[Hg] 76 mm[Hg] [facility] ([facility] Body temperature 97.0 [degF] 97.0 [degF] [facility] ([facility] Heart rate 82 /min 82 /min [facility] ([facility] Respiratory rate 16 /min 16 /min [facility] ( [facility] Body height 62 [in_i] 62 [in_i] [facility] ([facility] 5'2" Body weight 78.00 [lb_av] 78.00 [lb_av] [facility] ([facility] [place] body weight 110 [lb_av] 110 [lb_av] MEDEN T ([facility] Body mass index (BMI) [Ratio] 14.3 kg/m2 14.3 k g/m2 [facility] ([facility] Oxygen saturation in Arterial blood by Pulse oximetry 95 % 95 % [facility] ([facility] Patient Treatment Plan of Care Planned Activity Planned Date Details Description Data Source (s) Atorvastatin Calcium 20 MG 12/14/2020 01:00:00 AM EDT [facility] Ensure Active High Protein 12/14/2020 01:00:00 AM EDT [facility] ([facility]) Famotidine 40 MG 12/14/2020 01:00:00 AM EDT [facility]) Imipramine HCl 50 MG 12/14/2020 01:00:00 AM EDT [facility]) Linzess 145 MCG 12/14/2020 01:00:00 AM EDT [facility] ([facility])
[2021-01-07] MEDS ORDERED: NS 500 ML IV ONE (17:50)
[2021-01-07 18:21] LABS: BASO % 0.1 % (0.0-1.0); EOS % 0.1 % (0.0-3.0); HEMATOCRIT 39.6 % (36.0-47.0); HEMOGLOBIN 13.4 g/dl (12.0-15.5); LYMPH # 0.6 10^3/uL (1.5-5.0); LYMPH % 6.8 % (24.0-44.0); MEAN CORPUSCULAR HEMOGLOBIN 30.7 pg (27.0-33.0); MEAN CORPUSCULAR HGB CONC 33.8 g/dl (32.0-36.5); MEAN CORPUSCULAR VOLUME 90.8 fl (80.0-96.0); MONO # 0.4 10^3/uL (0.0-0.8); MONO % 4.7 % (2.0-8.0); NEUTROPHILS # 7.1 10^3/uL (1.5-8.5); NEUTROPHILS % 87.8 % (36.0-66.0); PLATELET COUNT, AUTOMATED 229 10^3/uL (150-450); RED BLOOD COUNT 4.36 10^6/uL (4.00-5.40); WHITE BLOOD COUNT 8.1 10^3/uL (4.0-10.0)
[2021-01-07] MEDS ORDERED: LINZ145C PO (18:38)
[2021-01-07] MEDS ORDERED: FAMO40TA3 PO (18:38)
[2021-01-07] MEDS ORDERED: HOME MED LIST COMPLETE! XX SCH (18:40)
[2021-01-07 18:55] LABS: RSV AMPLIFICATION NEGATIVE (NEGATIVE)
--- NOTE | 2021-01-07 20:22 | ECGEPIP ---
[facility] - ED Test Date: 2021-01-07 Pat Name: REGINALDO HERNANDEZ Department: Room: - Gender: Female Teaching Young: WENDY : 1955 Requested By: Alcides Montelongo Order Number: [id number] Reading MD: Ashleigh Woods Measurements Intervals [place] Rate: 72 P: 80 MN: 174 QRS: 49 QRSD: 90 T: 88 QT: 396 QTc: 433 Interpretive Statements Normal sinus rhythm Right atrial enlargement Cannot rule out Anteroseptal infarct , age undetermined ST & T wave abnormality, consider ischemia decreased rate 11/17/20 Electronically Signed on 01-07-2021 20:22:21 EDT by Ashleigh Woods
[2021-01-07] MEDS ORDERED: FAMOTIDINE 20 MG TAB PO SCH (21:00)
[2021-01-07] MEDS ORDERED: IMIPRAMINE 50 MG TAB PO SCH (21:00)
--- NOTE | 2021-01-07 21:33 | REPVR ---
PROCEDURE INFORMATION: Exam: MR Head Without Contrast Exam date and time: 01/07/2021 7:47 PM Age: 65 years old Clinical indication: Other: PT has HX of anorexia and is unable to talk; Additional info: R/O CVA TECHNIQUE: Imaging protocol: MR of the head without contrast. COMPARISON: CT Head without contrast 01/07/2021 11:21 AM FINDINGS: Brain: Moderate to severe nonspecific T2/FLAIR hyperintensities of the periventricular and deep subcortical white matter, most likely secondary to chronic small vessel ischemic change. No intracranial hemorrhage or extra-axial fluid collection. No evidence of mass effect or midline shift. No restricted diffusion to suggest acute infarct. Cerebral ventricles: Moderate prominence of the ventricles and sulci, likely attributed to parenchymal volume loss. Bones/joints: Unremarkable. Paranasal sinuses: Normal as visualized. No acute sinusitis. Mastoid air cells: No mastoid effusion. Orbital cavity: Unremarkable. Soft tissues: Unremarkable. IMPRESSION: 1. No acute intracranial pathology. 2. Chronic findings, as above. Electronically signed by: Lorenzo Gross On 01/07/2021 21:32:57 PM
[2021-01-07 22:00] VITALS: BP 99/67
--- NOTE | 2021-01-08 00:17 | IPNPDOC ---
Text Note Date of Service The patient was seen on 01/08/21. NOTE Per d/w MARILEE Barrientos the patient decline placement of an NG tube for feeds; we will start her on D5NS and check FSBS Q6H and order a swallow eval in the morning. ALLISON AYALA MD Jan 08, 2021 00:17
[2021-01-08] MEDS ORDERED: NS 1,000 ML IV ONE (00:20)
[2021-01-08] MEDS: D5W/0.9% SODIUM CHLORIDE 1,000 ML IV SCH ×3 (00:27→20:30)
[2021-01-08] MEDS ORDERED: GLUCOSE 4GM CHEW TABLET PO PRN (00:40)
[2021-01-08] MEDS ORDERED: GLUCAGON INJ 1MG VIAL SC PRN (00:40)
[2021-01-08] MEDS: DEXTROSE 50% 50 ML SYRINGE IV PRN ×2 (00:49→13:22)
[2021-01-08] MEDS: THIAMINE 200MG 2ML VIAL IV SCH ×2 (02:15→14:45)
[2021-01-08] MEDS: FOLIC ACID 1 MG in NS 50 ML IV SCH (05:32)
[2021-01-08 06:00] VITALS: BP 92/68
[2021-01-08 07:12] LABS: BASO % 0.1 % (0.0-1.0); HEMOGLOBIN 12.9 g/dl (12.0-15.5); LYMPH # 0.5 10^3/uL (1.5-5.0); LYMPH % 7.1 % (24.0-44.0); MEAN CORPUSCULAR HGB CONC 32.3 g/dl (32.0-36.5); MONO # 0.4 10^3/uL (0.0-0.8); NEUTROPHILS # 6.2 10^3/uL (1.5-8.5); NEUTROPHILS % 87.2 % (36.0-66.0); PLATELET COUNT, AUTOMATED 223 10^3/uL (150-450); WHITE BLOOD COUNT 7.1 10^3/uL (4.0-10.0)
[2021-01-08 07:47] LABS: BILIRUBIN,TOTAL 0.5 MG/DL (0.2-1.0); CALCIUM LEVEL 8.5 MG/DL (8.8-10.2); GLOMERULAR FILTRATION RATE 58.9 (>45); MAGNESIUM LEVEL 1.8 MG/DL (1.8-2.4); POTASSIUM SERUM 3.8 MEQ/L (3.5-5.1); TOTAL PROTEIN 5.9 GM/DL (6.4-8.2)
[2021-01-08] MEDS ORDERED: LIDOCAINE 1% MDV 20ML VIAL As Ordered ONE (09:12)
[2021-01-08] MEDS ORDERED: ISOVUE-300 61% 50ML VIAL As Ordered ONE (11:46)
[2021-01-08] MEDS ORDERED: DEXTROSE 50% 50 ML SYRINGE As Ordered ONE (13:16)
[2021-01-08 14:00] VITALS: BP 109/66
[2021-01-08] MEDS ORDERED: SODIUM CHLORIDE 0.9% INJ 10 ML SYR IV PRN (14:45)
--- NOTE | 2021-01-08 16:57 | REP ---
PROCEDURE NAME: PICC LINE INSERTION W/SITERITE CLINICAL INFORMATION: poor access, may require TPN. COMPARISON: None. PROCEDURE DESCRIPTION: The procedure was performed by DARRION Cullen, under the direct supervision of Dr. Whiteside. The risks and benefits of the procedure were explained to the patient and an informed consent was obtained both verbally and written. Directly prior to the start of the procedure a formal time-out was completed in the procedure room. The right brachial vein was localized using ultrasound guidance. The skin was prepped and draped in sterile fashion. Six mL of 1% lidocaine 10 mg/mL was used as a local anesthetic. Using ultrasound guidance the right brachial vein was cannulated, and a 0.018 guidewire was inserted and advanced to the level of SVC using fluoroscopic guidance. The needle was removed and a 5 Faroese dilator and peel-away sheath was inserted over the guidewire. A 4.5 Faroese single lumen catheter was cut to a length of 27 cm. The dilator was removed and the catheter was inserted over the guidewire with the tip ending at the level of the SVC. The peel-away sheath was removed and the catheter was flushed with heparinized saline as per hospital protocol. The catheter was affixed to the skin and a sterile dressing was applied. The patient tolerated the procedure well and there were no immediate complications. CONCLUSION: PICC line insertion into the right brachial vein. 4.8 minutes of fluoroscopy time was utilized for this procedure. Some fluoroscopic images are performed with last image hold technology. These images require no additional radiation. <Electronically signed by Alessandra Sagastume > 01/08/21 1524 <Electronically signed by Speedy Whiteside > 01/08/21 [id number]
[2021-01-08] MEDS: SODIUM CHLORIDE 0.9% INJ 10 ML SYR IV SCH (17:50)
--- NOTE | 2021-01-08 19:26 | IPNPDOC ---
Subjective Date Seen The patient was seen on 01/08/21. Subjective Chief Complaint/HPI Mrs. Coe is a 65-year-old female with anorexia nervosa who presents with failure to thrive. Patient was seen after PICC line was placed in the afternoon. Patient denies any chest pain or dyspnea. She asked me for ice cream. Speech swallow therapy evaluated patient, no safe diet at this time. I reached out to dietary for recommendations for TPN. Recommended no lipids and 30 mL/hr of TPN. I had a long conversation with patient about goals of care. I explained to her that even with the PEG tube, she still may not be able to swallow. We can prolong her life but it might be painful and suffering. The other option is to make her comfortable, and she could eat whatever she wants. Her life will be short, but with good quality. I offered her to speak with end-of-life specialists. She declined. She wants to be healthy and to live longer. I told her that I could give her nutrition, but I cannot guarantee that she can be healthy. I spoke with the son who wants to abide by mother's wishes. Objective Physical Examination General Exam: Positive: Alert, Cooperative, Other (Thin and cachectic) ENT Exam: Positive: Other ENT (Oral mucosa dry) Chest Exam: Positive: Clear to auscultation Heart Exam: Positive: Rate Normal, Regular Rhythm Abdomen Exam: Positive: Normal bowel sounds, Soft; Negative: Tenderness Extremity Exam: Negative: Edema Neuro Exam: Negative: Normal Speech (Difficult to understand speech) Psych Exam: Positive: Mental status NL, Mood NL Assessment /Plan Assessment Mrs. Coe is a 65-year-old female with anorexia nervosa who presents with failure to thrive. Speech therapy evaluated patient. No safe diet at this time. Discussed goals of care with patient. She was to continue with PEG tube. Will give TPN to build up her strength in preparation for surgery. Will reach out to surgery when she is stronger. Plan/VTE VTE Prophylaxis Ordered?: Yes Plan 1. Anorexia nervosa, severe protein calorie malnutrition, failure to thrive Patient's weight is 28.1 kg. BMI 11.3 Patient refused NG tube Start patient on IV folic acid and IV thiamine Dietary consulted, recommendations appreciated PICC line placed, will start TPN tomorrow. Goal rate of 30 mL/h. Hold lipid at this time Patient is stronger, will reach out to general surgery about PEG tube 2. Dysphagia MRI demonstrates chronic small vessel ischemic change. No signs of acute infarct Speech swallow therapy following. Recommending strict n.p.o. 3. Peripheral arterial disease DP pulses audible with Doppler Patient will need vascular surgery referral outpatient 4. Inability to ambulate MRI demonstrates chronic small vessel ischemic change. No signs of acute infarct We will order PT and OT 5. DVT prophylaxis SCDs and teds Disposition: Pending clinical improvement VS, I&O, 24H, Fishbone Vital Signs/I&O Vital Signs Date Time Temp Pulse Resp B/P (MAP) Pulse Ox O2 Delivery O2 Flow Rate FiO2 01/08/21 13:03 76 15 90 Room Air 01/08/21 09:45 97.8 01/08/21 06:00 92/68 (76) Laboratory Data 24H LABS Laboratory Tests 2 01/08/21 00:29: Bedside Glucose (Misc Panel) 13*L 01/08/21 00:42: Bedside Glucose Confirm (Misc) 29*L 01/08/21 01:43: Bedside Glucose (Misc Panel) 142H 01/08/21 06:34: Bedside Glucose (Misc Panel) 162H 01/08/21 06:51: Immature Granulocyte % (Auto) 0.6, Neutrophils (%) (Auto) 87.2H, Lymphocytes (%) (Auto) 7.1L, Monocytes (%) (Auto) 5.0, Eosinophils (%) (Auto) 0.0, Basophils (%) (Auto) 0.1, Neutrophils # (Auto) 6.2, Lymphocytes # (Auto) 0.5L, Monocytes # (Auto) 0.4, Eosinophils # (Auto) 0.0, Basophils # (Auto) 0.0, Nucleated Red Blood Cells % (auto) 0.0, Anion Gap 7L, Glomerular Filtration Rate 58.9, Calcium Level 8.5L, Phosphorus Level 4.8, Magnesium Level 1.8, Total Bilirubin 0.5, Aspartate Amino Transf (AST/SGOT) 249H, Alanine Aminotransferase (ALT/SGPT) 180H, Alkaline Phosphatase 230H, Total Protein 5.9L, Albumin 3.0L, Albumin/Globulin Ratio 1.0L 01/08/21 17:57: Bedside Glucose (Misc Panel) 82 CBC/BMP Laboratory Tests 01/08/21 06:51 Microbiology Microbiology 01/07/21 Blood Culture - Preliminary, Resulted No growth after 24 hours . All specim... 01/07/21 Blood Culture - Preliminary, Resulted No growth after 24 hours . All specim... AZUL VALDIVIA DO Jan 08, 2021 19:26
[2021-01-08] MEDS ORDERED: PANTOPRAZOLE 40MG VIAL (C9113 PER 1) IV SCH (20:00)
[2021-01-08 20:06] VITALS: BP 117/48
[2021-01-09 05:09] VITALS: BP 113/51
[2021-01-09] MEDS: FOLIC ACID 1 MG in NS 50 ML IV SCH (05:40)
[2021-01-09] MEDS: D5W/0.9% SODIUM CHLORIDE 1,000 ML IV SCH (05:40)
[2021-01-09] MEDS: SODIUM CHLORIDE 0.9% INJ 10 ML SYR IV SCH ×3 (05:41→23:37)
[2021-01-09 05:46] LABS: HEMATOCRIT 37.6 % (36.0-47.0); HEMOGLOBIN 12.2 g/dl (12.0-15.5); MEAN CORPUSCULAR HEMOGLOBIN 30.3 pg (27.0-33.0); MEAN CORPUSCULAR HGB CONC 32.4 g/dl (32.0-36.5); MEAN CORPUSCULAR VOLUME 93.3 fl (80.0-96.0); PLATELET COUNT, AUTOMATED 187 10^3/uL (150-450); RED BLOOD COUNT 4.03 10^6/uL (4.00-5.40); WHITE BLOOD COUNT 7.5 10^3/uL (4.0-10.0)
[2021-01-09 06:09] LABS: BLOOD UREA NITROGEN 58 MG/DL (7-18); CALCIUM LEVEL 7.4 MG/DL (8.8-10.2); CARBON DIOXIDE LEVEL 36 MEQ/L (21-32); CHLORIDE LEVEL 110 MEQ/L (98-107); CREATININE FOR GFR 0.82 MG/DL (0.55-1.30); GLOMERULAR FILTRATION RATE > 60.0 (>45); GLUCOSE, FASTING 96 MG/DL (70-100); MAGNESIUM LEVEL 1.6 MG/DL (1.8-2.4); POTASSIUM SERUM 3.5 MEQ/L (3.5-5.1); SODIUM LEVEL 150 MEQ/L (136-145)
[2021-01-09] MEDS ORDERED: D5W/0.45% SODIUM CHLORIDE 1,000 ML IV SCH (07:15)
[2021-01-09] MEDS: MAG SULF 1GM/100ML (MAG RUN) 1 GM in IV 1 EA IV SCH ×3 (08:58→11:05)
[2021-01-09] MEDS: THIAMINE 200MG 2ML VIAL IV SCH (10:02)
[2021-01-09] MEDS: DEXTROSE 50% 50 ML SYRINGE IV PRN (12:16)
[2021-01-09 14:00] VITALS: BP 111/55
--- NOTE | 2021-01-09 15:37 | IPNPDOC ---
Subjective Date Seen The patient was seen on 01/09/21. Subjective Chief Complaint/HPI Mrs. Coe is a 65-year-old female with anorexia nervosa who presents with failure to thrive. Patient was seen this morning. Denies any chest pain or dyspnea. Patient will be receiving her first dose of TPN this evening. Objective Physical Examination General Exam: Positive: Alert, Cooperative, Other (Thin and cachectic) ENT Exam: Positive: Other ENT (Oral mucosa dry) Chest Exam: Positive: Clear to auscultation Heart Exam: Positive: Rate Normal, Regular Rhythm Abdomen Exam: Positive: Normal bowel sounds, Soft; Negative: Tenderness Extremity Exam: Negative: Edema Neuro Exam: Negative: Normal Speech (Difficult to understand speech) Psych Exam: Positive: Mental status NL, Mood NL Assessment /Plan Assessment Mrs. Coe is a 65-year-old female with anorexia nervosa who presents with failure to thrive. Speech therapy evaluated patient. No safe diet at this time. Discussed goals of care with patient. She was to continue with PEG tube. Will give TPN to build up her strength in preparation for surgery. Will reach out to surgery when she is stronger. Plan/VTE VTE Prophylaxis Ordered?: Yes Plan 1. Anorexia nervosa, severe protein calorie malnutrition, failure to thrive Patient's weight is 28.1 kg. BMI 11.3 Patient refused NG tube Start patient on IV folic acid and IV thiamine Dietary consulted, recommendations appreciated PICC line placed. Goal rate of 30 mL/h. Hold lipid at this time. TPN day 1 When patient is stronger, will reach out to general surgery about PEG tube 2. Dysphagia MRI demonstrates chronic small vessel ischemic change. No signs of acute infarct Speech swallow therapy following. Recommending strict n.p.o. 3. Peripheral arterial disease DP pulses audible with Doppler Patient will need vascular surgery referral outpatient 4. Inability to ambulate MRI demonstrates chronic small vessel ischemic change. No signs of acute infarct We will order PT and OT 5. DVT prophylaxis SCDs and teds Disposition: Pending clinical improvement VS, I&O, 24H, Fishbone Vital Signs/I&O Vital Signs Date Time Temp Pulse Resp B/P (MAP) Pulse Ox O2 Delivery O2 Flow Rate FiO2 01/09/21 14:00 98.0 63 14 111/55 (73) 94 Room Air I&O- Last 24 Hours up to 6 AM 01/09/21 06:00 Intake Total 844.2 ml Output Total 0 ml Balance 844.2 ml Laboratory Data 24H LABS Laboratory Tests 2 01/08/21 17:57: Bedside Glucose (Misc Panel) 82 01/09/21 01:19: Bedside Glucose (Misc Panel) 90 01/09/21 05:22: Bedside Glucose (Misc Panel) 106 01/09/21 05:34: Nucleated Red Blood Cells % (auto) 0.0, Anion Gap 4L, Glomerular Filtration Rate > 60.0, Calcium Level 7.4L, Phosphorus Level 3.7#, Magnesium Level 1.6L 01/09/21 12:05: Bedside Glucose (Misc Panel) 68L CBC/BMP Laboratory Tests 01/09/21 05:34 Microbiology Microbiology 01/07/21 Blood Culture - Preliminary, Resulted No Growth after 48 hours. All Specime... 01/07/21 Blood Culture - Preliminary, Resulted No Growth after 48 hours. All Specime... AZUL VALDIVIA DO Jan 09, 2021 15:37
[2021-01-09] MEDS: HumaLOG INSULIN (NovoLOG) PER UNIT SC SCH ×2 (17:34→23:37)
[2021-01-09] MEDS ORDERED: AMINO AC/ELECTROLYTE/DEX/CALC 1,000 ML IV SCH (18:00)
[2021-01-09 19:30] LABS: BLOOD UREA NITROGEN 56 MG/DL (7-18); CALCIUM LEVEL 7.7 MG/DL (8.8-10.2); CARBON DIOXIDE LEVEL 29 MEQ/L (21-32); CHLORIDE LEVEL 108 MEQ/L (98-107); CREATININE FOR GFR 0.96 MG/DL (0.55-1.30); GLOMERULAR FILTRATION RATE > 60.0 (>45); GLUCOSE, FASTING 126 MG/DL (70-100); SODIUM LEVEL 144 MEQ/L (136-145)
[2021-01-09] MEDS ORDERED: PANTOPRAZOLE 40MG VIAL (C9113 PER 1) IV SCH (21:00)
[2021-01-09 22:00] VITALS: BP 111/65
[2021-01-10] MEDS: HumaLOG INSULIN (NovoLOG) PER UNIT SC SCH (06:00)
[2021-01-10] MEDS ORDERED: NS 1,000 ML IV ONE (06:10)
--- NOTE | 2021-01-10 06:24 | IPNPDOC ---
Text Note Date of Service The patient was seen on 01/10/21. NOTE time of service 550am I was informed by RN Amina that the patient become unresponsive at about 550am. The patient is full code, her son confirmed that he would like everything done RR approximately 5 breaths per min / HR 83 / BP unable to obtain a BP / glucose 74 We will transfer her to ICU #Septic shock - 1L bolus / Levophed / will ask he surgeon coke production heater to place a melba tral line and arterial line #Acute respiratory failure (she is having agonal breaths) - ask anesthesia to intubate and consult / post intubation xray and ABG LATE ENTRY 706am The patient's son agreed to make her LICENSED MORTGAGE LOAN OFFICER. I will relay this info to who will make plans to descalate care and cancel 's consult VS,Paulie, I+O VSPaulie I+O Laboratory Tests 01/09/21 18:49 Vital Signs Date Time Temp Pulse Resp B/P (MAP) Pulse Ox O2 Delivery O2 Flow Rate FiO2 01/09/21 22:00 98.4 93 16 111/65 (80) 95 Room Air I&O- Last 24 Hours up to 6 AM 01/10/21 06:00 Intake Total 1900.5 ml Output Total 0 ml Balance 1900.5 ml ALLISON AYALA MD Jan 10, 2021 06:24
[2021-01-10] MEDS ORDERED: NOREPINEPHRINE 4 MG/4 ML AMP As Ordered ONE (06:34)
[2021-01-10] MEDS ORDERED: NOREPINEPHRINE BITARTRATE 8 MG in D5W 492 ML IV SCH ×2 (06:45→19:00)
[2021-01-10] MEDS ORDERED: VASOPRESSIN INJ 20 UNITS/ML VIAL As Ordered ONE (07:04)
--- NOTE | 2021-01-10 08:18 | REP ---
INDICATION: intubation. COMPARISON: 01/07/2021 at 11:18 a.m. TECHNIQUE: Portable FINDINGS: The technique utilized in obtaining the radiograph has magnified the cardiac silhouette and accentuated the interstitial markings. Since the last examination a right-sided PICC line catheter has been placed the tip of which is in the superior vena cava. An endotracheal tube is now seen the tip of which is in satisfactory position at the level of the aortic knob. The cardiomediastinal silhouette is unchanged. The lung carroll are unchanged. No acute patchy parenchymal opacities or pleural effusions have developed. There is no change in the osseous structures. IMPRESSION: Tube and line as described above. No other significant change. <Electronically signed by Chau Cohen > 01/10/21 [id number]
[2021-01-10] MEDS ORDERED: MORPHINE 2 MG/ML 1ML VIAL (J2270) IV PRN (08:20)
[2021-01-10] MEDS ORDERED: ONDANSETRON 4MG/2ML VIAL IV PRN (08:20)
[2021-01-10] MEDS ORDERED: LORazepam 2 MG/ML VIAL IV PRN (08:20)
[2021-01-10] MEDS ORDERED: ATROPINE SULFATE 1% OP SOLN 2 ML BTL SL PRN (08:20)
[2021-01-10] MEDS ORDERED: SCOPOLAMINE 1MG TRANSDERMAL PATCH TOP PRN (08:20)
[2021-01-10] MEDS ORDERED: THIAMINE 200MG 2ML VIAL IV SCH ×2 (09:00→21:00)
[2021-01-10] MEDS ORDERED: PANTOPRAZOLE 40MG VIAL (C9113 PER 1) IV SCH (09:00)
[2021-01-10] MEDS ORDERED: FOLIC ACID 1 MG in NS 50 ML IV SCH ×2 (09:00→21:00)
--- NOTE | 2021-01-10 21:07 | DS.PDOC ---
Discharge Summary General Date of Admission Jan 07, 2021 at 16:14 Date of Discharge Jan 10, 2021 Discharge Summary PROCEDURES PERFORMED DURING STAY: PICC placement on 01/08/2021, intubation and extubation on 01/10/2021 ADMITTING DIAGNOSES: 1. Failure to thrive 2. Anorexia nervosa 3. Severe protein calorie malnutrition 4. Dysphagia 5. Peripheral arterial disease 6. Inability to ambulate DISCHARGE DIAGNOSES: 1. Failure to thrive 2. Anorexia nervosa 3. Severe protein calorie malnutrition 4. Dysphagia 5. Peripheral arterial disease 6. Inability to ambulate COMPLICATIONS/CHIEF COMPLAINT: Anorexia Nervosa, Dehydration, Malnutrition- Severe. HISTORY OF PRESENT ILLNESS: Copied from admitting attending's H&P " 65-year-old female with a past medical history of anorexia nervosa, depression, osteoporosis, that has sustained a significant weight loss in the last several months with worsening of her anorexia symptoms. Patient was brought to the ER by her son. Per his per her son family and PCP have been trying to get the patient to eat has been assessed by public health nursing with plan for a gastrostomy tube to sustain nutrition. Patient was ultimately brought to the ER for significant failure to thrive inability to eat, inability to eat, and frailty to the point of having garbled speech. At this point patient is afebrile normotensive with a pulse of 72 saturating 100% on room air. She does have an elevated lactic acid of 2.3 as well as an elevated BUN. She has elevation of AST ALT and ALP which are consistent with prior levels. Patient is unable to provide significant history as her speech is almost unintelligible however she can answer yes or no questions. She will be admitted to hospitalist service for the treatment of failure to thrive as well as severe protein calorie malnutrition secondary to anorexia nervosa. " HOSPITAL COURSE: During hospitalization, patient failed her speech swallow evaluation. Patient had wanted ice cream, but since she did not pass her swallow evaluation, we could not safely give it to her. I discussed goals of care with patient. She wanted to proceed with PEG tube placement. I explained that even if we placed a PEG tube, she still may not be able to to swallow ice cream. She still wanted to try. I relayed the info to the son. We placed a PICC line and dietary was consulted for TPN. Recommended TPN with 30ml/hr with no lipids. Patient was started on Monday. Monday morning at 5:50AM, patient was unresponsive without blood pressor. Patient was taken to the ICU for intubation and Levophed. Since patient only had a single lumen PICC, they could not run sedation. Patient was awake on the ventilator. Even with max Levophed, no pressure was obtainable. The son was contacted, and he came to see the patient. After discussion, he decided on BEE PRODUCER. Daughter was able to video chat with patient before patient was extubated and made comfortable. On January 10, 2021 at 9:20AM, patient peacefully . Vital Signs/I&Os Vital Signs Date Time Temp Pulse Resp B/P (MAP) Pulse Ox O2 Delivery O2 Flow Rate FiO2 01/10/21 09:18 0 01/10/21 09:00 63 Room Air 01/10/21 05:50 2.0 01/10/21 05:50 99.1 20 01/09/21 22:00 111/65 (80) I&O- Last 24 Hours up to 6 AM 01/10/21 06:00 Intake Total 1900.5 ml Output Total 0 ml Balance 1900.5 ml Laboratory Data Labs 24H Laboratory Tests 2 01/09/21 23:29: Bedside Glucose (Misc Panel) 108 01/10/21 06:18: Bedside Glucose (Misc Panel) 74L FSBS Laboratory Tests Test 01/09/21 23:29 01/10/21 06:18 Range/Units Bedside Glucose (Misc Panel) 108 74 80-115 MG/DL Microbiology Microbiology 01/07/21 Blood Culture - Preliminary, Resulted No Growth after 72 hours. All specime... 01/07/21 Blood Culture - Preliminary, Resulted No Growth after 72 hours. All specime... Discharge Medications Scheduled Atorvastatin Calcium (Atorvastatin Calcium) 20 Mg Tablet, 20 MG PO DAILY, (Reported) Famotidine (Famotidine) 40 Mg Tablet, 40 MG PO QHS, (Reported) Imipramine HCl (Imipramine HCl) 50 Mg Tab, 100 MG PO QHS, (Reported) Linaclotide (Linzess) 145 Mcg Capsule, 145 MCG PO DAILY, (Reported) Allergies Coded Allergies: Penicillins (Verified Allergy, Unknown, 01/07/21) Sulfa (Sulfonamide Antibiotics) (Verified Allergy, Unknown, 01/07/21) amoxicillin (Verified Allergy, Unknown, 01/07/21) clavulanic acid (Verified Allergy, Unknown, 01/07/21) sulfamethoxazole (Verified Allergy, Unknown, 01/07/21) AZUL VALDIVIA DO Jan 10, 2021 20:48
== END 2021-01-10 11:10 | disposition expired | DRG 883 ==
LOC: EDBD 10:26 → M ED 10:26 → M ED INP 16:14 → ENRESERVTM 21:25 → ENRESERVDT 21:25 → M MS5PR 22:01 → M PCU 01-10 06:33
PROVIDERS: ADMIT Family Medicine; ATTEND Internal Medicine
PROC: 02HV33Z Insertion of Infusion Device into Superior Vena Cava, Percutaneous Approach (ICD-10-PCS; principal; 2021-01-08 15:30)
DX: F50.00 Anorexia nervosa, unspecified (principal); E43 Unspecified severe protein-calorie malnutrition; J96.00 Acute respiratory failure, unspecified whether with hypoxia or hypercapnia; G93.41 Metabolic encephalopathy; E87.0 Hyperosmolality and hypernatremia; I73.9 Peripheral vascular disease, unspecified; R62.7 Adult failure to thrive; R13.10 Dysphagia, unspecified; R26.2 Difficulty in walking, not elsewhere classified; R57.0 Cardiogenic shock; F32.9 Major depressive disorder, single episode, unspecified; M81.0 Age-related osteoporosis without current pathological fracture; Z88.0 Allergy status to penicillin; Z88.2 Allergy status to sulfonamides; Z88.8 Allergy status to other drugs, medicaments and biological substances; Z79.899 Other long term (current) drug therapy